=== PATIENT | female | born 1930 | race Caucasian/White ===

== ENCOUNTER 2017-11-30 15:41 | Inpatient (IN) ==
--- NOTE | 2017-11-30 15:50 | Emergency Department Report ---
Weakness HPI - General Stated complaint: Fall-weakness Time Seen by Provider: 11/30/17 15:50 Source: patient, EMS - History of Present Illness HPI Narrative: 87 YO F brought to ED by EMS for dizziness and fall. Patient says she got up at home to go to the bathroom, became dizzy and fell. Patient was feeling "a little dizzy before" so used her walker. Patient says that she crawled to the kitchen to get to a phone. EMS reports patient was diaphoretic when they arrived. "Dizzy is worse with position change". Patient denies fever, chills, SOA, CP, nausea, vomiting, abdominal pain, blurred vision. Patient says she saw her bucket hooker Dr. Syed in [place] this past week and was told she was doing well. - Related Data Home Medications Medication Instructions Recorded Confirmed Levothyroxine Tab [Synthroid] 25 mcg PO ACB 11/30/17 12/06/17 Previous Rx's Medication Instructions Recorded Acetaminophen [Tylenol] 325 - 650 mg PO Q5H PRN tab 12/06/17 Aspirin Chewable [ASA] 81 mg PO DAILY tab.chew 12/06/17 Atorvastatin [Lipitor] 40 mg PO HS tab 12/06/17 Bisacodyl EC TAB [Dulcolax] 5 mg PO DAILY PRN tab 12/06/17 Bisacodyl Supp [Dulcolax] 10 mg RECTALLY DAILY PRN 12/06/17 suppositor Carvedilol [Coreg] 6.25 mg PO TIDWM tab 12/06/17 Famotidine [Pepcid] 20 mg PO BID tab 12/06/17 Furosemide [Lasix] 40 mg PO DAILY tab 12/06/17 Hydrocodone/APAP 5/325 [[place] 1 - 2 tab PO Q5H PRN tab 12/06/17 5/325] LORazepam [Ativan] 0.5 mg PO Q6H PRN tab 12/06/17 Mag-Al + Sim Oral Liq [Maalox Plus] 30 ml PO Q3H PRN udc 12/06/17 Metoclopramide [Reglan] 5 - 10 mg IVP Q6H PRN vial 12/06/17 Milk of Magnesia [Mom] 30 ml PO DAILY PRN udc 12/06/17 Nitroglycerin [Nitrostat] 0.4 mg SL Q5M PRN tab 12/06/17 Spironolactone [Aldactone] 25 mg PO DAILY tab 12/06/17 Allergies Allergy/AdvReac Type Severity Reaction Status Date / Time losartan Allergy Severe Anaphylactic Verified 12/06/17 19:49 Shock Tetanus Vaccines and Toxoid Allergy Severe PT HAS HAD Verified 12/06/17 19:49 THE DISEASE Sulfa (Sulfonamide Allergy Mild RASH Verified 12/06/17 19:49 Antibiotics) amiodarone Allergy Unknown Verified 12/06/17 19:49 lisinopril AdvReac Cough Verified 12/06/17 19:49 Review of Systems All systems: reviewed and negative except as stated Constitutional: Reports: as per HPI, other (dizziness) PFSH Patient Stated Medical History Cardiac Arrhythmia Yes: a fib Hypertension Yes Hiatal Hernia Yes Clinic Medical History (Last Reviewed 12/01/17 @ 11:58 by Barbara Sousa MD ) Hypothyroidism (Chronic Medical) Tetanus (Resolved Medical) Hypertension (Chronic Medical) Atrial fibrillation (Acute Medical) CAD (coronary artery disease) (Acute Medical) Cardiomyopathy (Acute Medical) Pulmonary hypertension (Acute Medical) Valvular heart disease (Acute Medical) CHF Surgical History: *Dental work with dentures age 13. *Bilateral Cataract Removal. *Cholecystectomy 1988. *Appendectomy age 13. *Total Abdominal Hysterectomy Family History: Family History (Last Updated 12/01/17 @ 11:56 by Barbara Sousa MD) Brother Heart problem Father Ruptured, esophagus Mother Stroke Sister Atrial fibrillation Sister Atrial fibrillation - Social History Smoking status: Never smoker Physical Exam - General General appearance: alert, in no apparent distress - Normal Exams: Head:: Normocephalic without trauma Eyes:: Pupils are PERRLA w/ EOMI, No scleral icterus, irritation ENMT:: No facial trauma, nasal exudates, pharyngeal erythema, or exudates are noted Chest/Respirations:: Clear all [place], with good airflow, and symmetry bilaterally Abdomen:: Bowel sounds positive, soft, non-tender, non-distended Neurological:: Patient is alert, and oriented, cranial nerves, motor/sensory/ cerebellar, exams w/o gross deficits, to observation Psychiatric:: Patient exhibits, appropriate attention, emotion and affect - Eye Eye exam: Absent: nystagmus - ENT ENT exam: Present: mucous membranes moist, TM's normal bilaterally - Neck Neck exam: Present: trachea midline - Cardiovascular Cardiovascular exam: Present: other (regular-irregular rate 98) - Skin Skin exam: Present: warm, dry - Expanded Neurological Exam Speech: Present: fluid speech Cerebellar function: Normal: finger to nose, heel to goins Motor strength - LUE: 5/5 Motor strength - RUE: 5/5 Motor strength - LLE: 5/5 Motor strength - RLE: 5/5 Upper motor neuron exam: Absent bilaterally: pronator drift Course - Consultations Consultation #1: I discussed patient's HPI, PMH, labs, EKG, VS, CXR, CT of head and treatment in ED and concern for CVA with Dr. Pichardo. Dr. Pichardo will admit. Vital Signs Temperature 96.3 F L 11/30/17 15:41 Pulse Rate 92 11/30/17 15:41 Respiratory Rate 20 11/30/17 15:41 Blood Pressure 171/89 H 11/30/17 15:41 Pulse Oximetry 95 11/30/17 15:41 Temperature 96.8 F 12/06/17 11:30 Pulse Rate 77 12/06/17 15:30 Respiratory Rate 20 12/06/17 15:30 Blood Pressure 180/81 H 12/06/17 15:30 Pulse Oximetry 96 12/06/17 15:30 Weakness - MDM Narrative Medical decision making narrative: Unable to obtain orthostatic vital signs due to patient becoming extremely "dizzy". Patient symptoms consistent with vertigo patient given mag was seen. Patient has no improvement after 20 mg IV of labetalol for blood pressure patient is still tachycardic. Patient admits now feeling like she is no longer dizzy after fluids and meclizine. Patient given 40mg IV of lasix. Nurse reports patient became diaphoretic after lasix. Patient has improved VS after 15mg of Cardizem IV. Concern for stroke due to the fact she is not anticoagulated with atrial fibrillation. CT scan does not show any acute findings. I discussed observation admission with patient and her which they agree with. Patient is admitted to the hospitalist service for further evaluation. Concern for possible CVA due to patient has A-fib and is not on anticoagulant. - Differential Diagnosis Differential diagnosis: Likely: acute myocardial infarction, anemia, hypoglycemia, dehydration (, CVA, ) - Lab Data Attestation: I reviewed the patient's lab results. Result diagrams: 12/05/17 04:07 12/06/17 05:04 Lab Results 11/30/17 11/30/17 11/30/17 Range/Units 16:07 16:07 16:07 WBC 6.2 (4.5-11.0) T/MM3 RBC 4.72 (4.00-5.20) M/MM3 Hgb 15.3 (12-16) GM/DL Hct 46.0 (36-46) % MCV 97.5 (80-100) UM3 MCH 32.4 (26-34) UUG MCHC 33.3 (31-37) GM/DL RDW Std Deviation 52.4 H (36.9-50.2) FL Plt Count 244 (130-400) T/MM3 MPV 9.6 (9.4-12.4) UM3 Neutrophils % (Manual) 66.0 (33-66) % Band Neutrophils % 1.0 (0-6) % Lymphocytes % (Manual) 25.0 (23-45) % Monocytes % (Manual) 8.0 (0-9.0) % Neutrophils # (Manual) 4.1 (1.8-7.7) T/MM3 Band Neutrophils # 0.1 T/MM3 Lymphocytes # (Manual) 1.6 (1-4.8) T/MM3 Monocytes # (Manual) 0.5 (0-0.8) T/MM3 RBC Morph Comment Normal Turbidity < 20 (0-20) Sodium 144 (134-144) MEQ/L Potassium 4.4 (3.6-5) MEQ/L Chloride 105 (98-107) MEQ/L Carbon Dioxide 27 (22-30) MEQ/L Anion Gap 12 (5-15) MEQ/L BUN 17.0 (7-17) MG/DL Creatinine 0.9 (0.7-1.2) MG/DL GFR Calculation 59 BUN/Creatinine Ratio 19 (6-26) RATIO Glucose 145 H (65-110) MG/DL Calculated Osmolality 282 H (261-280) MOSM/KG Calcium 9.7 (8.4-10.2) MG/DL Total Bilirubin 0.90 (0.20-1.30) MG/DL Icterus Index < 2 (0-7) AST 47 H (14-36) U/L ALT 48 (9-52) U/L Alkaline Phosphatase 65 (38-126) U/L Troponin I < 0.012 (0-0.12) ng/ml B-Natriuretic Peptide 7960 H (0-175) pg/mL Total Protein 7.3 (6.3-8.2) G/DL Albumin 4.3 (3.5-5.0) G/DL Globulin 3.0 (2.4-3.6) G/DL Albumin/Globulin Ratio 1.4 (1.1-2.2) RATIO Specimen Hemolysis 71 H (0-25) Ur Collection Type Urine Color (YELLOW) Urine Clarity Urine pH (5.0-8.0) Ur Specific [place] (1.015-1.025) Urine Protein (NEGATIVE) Urine Glucose (UA) (NEGATIVE) Urine Ketones (NEGATIVE) Urine Occult Blood (NEGATIVE) Urine Nitrate (NEGATIVE) Urine Bilirubin (NEGATIVE) Urine Urobilinogen (NORMAL) EU/DL Ur Leukocyte Esterase (NEGATIVE) Urinalysis Comment Influenza Type A (PCR) Negative (Negative) Influenza Type B (PCR) Negative (Negative) 11/30/17 Range/Units 18:14 WBC (4.5-11.0) T/MM3 RBC (4.00-5.20) M/MM3 Hgb (12-16) GM/DL Hct (36-46) % MCV (80-100) UM3 MCH (26-34) UUG MCHC (31-37) GM/DL RDW Std Deviation (36.9-50.2) FL Plt Count (130-400) T/MM3 MPV (9.4-12.4) UM3 Neutrophils % (Manual) (33-66) % Band Neutrophils % (0-6) % Lymphocytes % (Manual) (23-45) % Monocytes % (Manual) (0-9.0) % Neutrophils # (Manual) (1.8-7.7) T/MM3 Band Neutrophils # T/MM3 Lymphocytes # (Manual) (1-4.8) T/MM3 Monocytes # (Manual) (0-0.8) T/MM3 RBC Morph Comment Turbidity (0-20) Sodium (134-144) MEQ/L Potassium (3.6-5) MEQ/L Chloride (98-107) MEQ/L Carbon Dioxide (22-30) MEQ/L Anion Gap (5-15) MEQ/L BUN (7-17) MG/DL Creatinine (0.7-1.2) MG/DL GFR Calculation BUN/Creatinine Ratio (6-26) RATIO Glucose (65-110) MG/DL Calculated Osmolality (261-280) MOSM/KG Calcium (8.4-10.2) MG/DL Total Bilirubin (0.20-1.30) MG/DL Icterus Index (0-7) AST (14-36) U/L ALT (9-52) U/L Alkaline Phosphatase (38-126) U/L Troponin I (0-0.12) ng/ml B-Natriuretic Peptide (0-175) pg/mL Total Protein (6.3-8.2) G/DL Albumin (3.5-5.0) G/DL Globulin (2.4-3.6) G/DL Albumin/Globulin Ratio (1.1-2.2) RATIO Specimen Hemolysis (0-25) Ur Collection Type Urine, void-cc/notcc Urine Color Yellow (YELLOW) Urine Clarity Sl cloudy Urine pH 7.5 (5.0-8.0) Ur Specific [place] 1.020 (1.015-1.025) Urine Protein Negative (NEGATIVE) Urine Glucose (UA) Negative (NEGATIVE) Urine Ketones Trace A (NEGATIVE) Urine Occult Blood Negative (NEGATIVE) Urine Nitrate Negative (NEGATIVE) Urine Bilirubin Negative (NEGATIVE) Urine Urobilinogen 0.2 (NORMAL) EU/DL Ur Leukocyte Esterase Negative (NEGATIVE) Urinalysis Comment Microscopic not ind. Influenza Type A (PCR) (Negative) Influenza Type B (PCR) (Negative) - Radiology Data Attestation: I reviewed the patient's radiology results. CT head: no acute intracranial findings (V-RAD) CXR: mild to moderate pulmonary edema (Dr. Gaspar) - EKG Data EKG #1 EKG attestation: Yes: I reviewed and interpreted this EKG. EKG results narrative: EKG unchanged from 2016. Rhythm: A.Fib [place]/QRS: left axis deviation Disposition Clinical Impression: hypertensive urgency, possibly chf [place] [facility] [facility] [place] Condition: Improved - Seen By: midlevel
[2017-11-30] MEDS ORDERED: MECLIZINE 25 MG TABLET PO ONE (16:13)
[2017-11-30] MEDS: SALINE FLUSH 10ml SYRINGE IVF PRN ×4 (16:27→20:30)
--- NOTE | 2017-11-30 17:04 | XRay Report ---
INDICATION: cough PROCEDURE: CHEST 2-VIEWS UPRIGHT (PA & LAT) Encounter: Initial COMPARISON: July 06, 2016 FINDINGS: Increased prominence of the interstitial markings noted. No pleural effusion or pneumothorax. Cardiac silhouette remains moderately enlarged. Mediastinal contours are stable. Pulmonary vascularity is prominent. Bony demineralization with old compression fractures in the spine. Impression: Increasing interstitial prominence with an appearance most suggestive of mild to moderate pulmonary edema. Atypical/viral pneumonia could have a similar appearance. Recommend clinical and laboratory correlation. .
[2017-11-30] MEDS ORDERED: LABETALOL 100mg/20ml INJECTION IVP ONE ×2 (19:04→19:39)
[2017-11-30] MEDS ORDERED: FUROSEMIDE 40 MG/4 ML INJECTION IVP ONE (20:01)
[2017-11-30] MEDS ORDERED: DiltiaZEM 25 MG/5 ML INJECTION IVP ONE (20:17)
--- NOTE | 2017-11-30 20:28 | History & Physical Report ---
History of Present Illness Date: 12/01/17 Chief complaint: dizziness HPI: Pleasant 87 yo female PTER via EMS for dizziness and fall at home. is at the bedside providing additional history she is hard of hearing, he Said that they got up and had breakfast and lunch at noon she was okay, he had left the house, around 3 PM she called him because she had fallen and couldn't get up. She was able to crawl to get the phone call. She describes what sounds like vertigo, but no other focal weakness. when the ambulance arrived she was still vertiginous and she was quite diaphoretic. She has had some gait disturbance and needs either a cane or walker typically, she has been debilitated since she was hospitalized in [place] for congestive heart failure in September. She actually visited her pulper in [place] yesterday (Dr Tyree Syed) who said that she was in good health. She does describe however earlier in the week that she had taken some oral Lasix for some leg swelling and some weight gain. She says that her dry weight at home is around 135 pounds 440 pounds in the hospital (she is 65 kg her 143 pounds here today.) She denies any dietary indiscretions she denies missing any doses of her carvedilol. She usually takes 6.25 mg daily and her blood pressure at home typically in's around 145/78. Her pulse is typically 77 and her saturations are in the mid to high 90s. She does not take any Coumadin anymore she had a history of a reaction to it. She takes a [place] herb "Netozyme" that acts as a blood thinner that "has been working because they haven't found any clots" her describes that she has a history of congestive heart failure with ejection fraction 25%. She has known accepted/permanent atrial fibrillation. She's been intolerant of amiodarone in the past. As noted above occasionally she will take PO lasix for leg swelling or wt gain. she denies any of those today, she does have some mild dyspnea She had some dyspepsia, her has been giving her some apple cider vinegar for the past for this "because it helps him" and she has a hiatal hernia. She denies fever chills nausea vomiting cough productive of sputum. She denies any peripheral edema. She denies urinary hesitancy or frequency. In ER she originally received some IV saline for dizziness and ketones in urine , but discussed w ER and decided to try lasix. HTN treated w labetalol. Found to be in mildly fast afib. Known afib. Got a dose of IV cardizem and this seemed to help her feel better and slow her heart rate down. Review of Systems All systems PM: 10-point ROS was reviewed, no additional remarkable complaints except Past Medical History Patient Stated Medical History Cardiac Arrhythmia Yes: a fib Hypertension Yes Hiatal Hernia Yes Clinic Medical History (Last Reviewed 09/16/17 @ 14:57 by MARIE Moreno) Hypothyroidism (Chronic Medical) Tetanus (Resolved Medical) Hypertension (Chronic Medical) Hypertensive heart disease Chronic Systolic CHF CAD s/p cath with ?stent 8 years ago Surgical History: *Dental work with dentures age 13. *Bilateral Cataract Removal. *Cholecystectomy 1988. *Appendectomy age 13. *Total Abdominal Hysterectomy Family History: Family History (Last Reviewed 09/16/17 @ 14:59 by MARIE Moreno) Brother Heart problem Family History Updates: n/c based on age - Social History Smoking status: Never smoker Substance use type: does not use Alcohol intake frequency: does not drink Housing: house Household members: spouse Current occupational status: retired Current residence: Apartment/Private Home Social history: We briefly discussed CODE STATUS, it sounds like ultimately she will probably want to be DO NOT RESUSCITATE but for now will be full code Medications Home Medications Medication Instructions Recorded Confirmed Type Carvedilol [Carvedilol] 6.25 mg PO BID 11/30/17 11/30/17 History Levothyroxine Tab [Synthroid] 25 mcg PO ACB 11/30/17 11/30/17 History Allergies Allergy/AdvReac Type Severity Reaction Status Date / Time Tetanus Vaccines and Toxoid Allergy Severe PT HAS HAD Verified 11/30/17 16:16 THE DISEASE Sulfa (Sulfonamide Allergy Mild RASH Verified 11/30/17 16:16 Antibiotics) amiodarone Allergy Unknown Verified 11/30/17 16:16 Exam Vital Signs: Temperature 96.3 F L 11/30/17 15:41 Pulse Rate 120 H 11/30/17 19:45 Respiratory Rate 36 H 11/30/17 19:45 Blood Pressure 171/106 H 11/30/17 19:40 Pulse Oximetry 97 11/30/17 19:45 Telemetry Rhythm: A-fib with RVR Height/Weight/BMI: Height 1.63 m Weight 65 kg - Constitutional Present: no acute distress Comments: she appears elderly She is alert and oriented however hard of hearing in no distress Lungs are actually fairly clear with normal respiratory pattern Cardiovascular irregularly irregular no murmurs heart rate is 70s Abdomen soft benign nontender Extremities no Neuro she has no focal weakness right versus left. Speech is fluent. Results - Labs CBC & Chem 7: 11/30/17 16:07 11/30/17 16:07 - ECG Data Tracing #1 Arrhythmias present: afib MT/QRS/ST segment/T wave changes: q waves (anteriorly), non-specific ST-T wave changes (lateral ST waves flat ) - Imaging and Cardiology Chest x-ray Status: image reviewed by me Additional comments: Impression: Increasing interstitial prominence with an appearance most suggestive of mild to moderate pulmonary edema. Atypical/viral pneumonia could have a similar appearance. Recommend clinical and laboratory correlation. . CT scan - head Additional comments: no bleed/ no acutes Assessment and Plan (1) Acute congestive heart failure Current visit: Yes Status: Acute (2) Hypertensive heart disease Current visit: Yes Status: Acute (3) Gait instability Current visit: Yes Status: Acute (4) Fall Current visit: Yes Status: Acute (5) Atrial fibrillation with rapid ventricular response Current visit: Yes Status: Acute (6) Hypothyroidism Current visit: No Status: Chronic (7) Hypertension Current visit: No Status: Chronic Assessment and Plan: 1. Acute systolic congestive heart failure POA, probably systolic per hx. Echo in AM for updated EF. IV lasix now and in am. Probably related to HTN heart dz and tachycardia 2. Atrial fibrillation with RVR. Persistent. Not anticoagulated (?fall risk? ) High risk for CVA. CHADSVaSC2 = 5 (at least) Depending on bleed/fall risk, consideration for anticoag is challenging 3. Hypertensive heart disease 4. Dizziness which I suspect is related to uncontrolled HTN but could be TIA or dysequilibrium or other 5. Hypothyroidism on replacement 6. Gait disturbance w fall - probably d/t #4 Plans 1. IV lasix 40 mg q12 h 2. coreg 6.25 BID and add lisniopril 10 mg - says she is sensitive to meds and BP can lower easily 3. Echo in AM 4. O2 eval 5. TSH 7.25- no adjustment for now 6. tele and control HR may need to add other rate controlling (cardizem) - will need to verify EF before adding that perhaps custodial 7. PT OT evals with fall 8. Lipitor 40 mg daily 9. MRI brain in AM rule out CVA as cause of vertigo/dizziness 10. Get records from her CV in [place] re: CAD, EF, why not on coumadin etc, why not on RUSSEL-I, - Physician Narrative Physician: Barbara Sousa MD Narrative: Date: 12/01/17 Time: 10:30 See supplemental note dictated 12/01/17. Hospital Course Summary Disclaimer: The visit summary below is not to be considered part of the above Progress Note.
[2017-11-30] MEDS ORDERED: MORPHINE SULFATE 2mg INJECTION IVP PRN ×2 (21:37)
[2017-11-30] MEDS ORDERED: ACETAMINOPHEN 325 MG TABLET PO PRN (21:37)
[2017-11-30] MEDS ORDERED: ASPIRIN 81 MG CHEWABLE TABLET PO ONE (21:37)
[2017-11-30] MEDS ORDERED: ONDANSETRON 4 MG/2 ML INJECTION IVP PRN (21:37)
[2017-11-30] MEDS ORDERED: FALL RISK - PHARMACY CONSULT XX ONE (22:07)
[2017-11-30] MEDS: ATORVASTATIN 40 MG TABLET PO SCH (23:00)
[2017-11-30] MEDS: LISINOPRIL 10 MG TABLET PO SCH (23:00)
[2017-11-30] MEDS: CARVEDILOL 6.25 MG TABLET PO SCH (23:28)
[2017-12-01] MEDS ORDERED: FUROSEMIDE 40 MG/4 ML INJECTION IVP SCH (06:00)
[2017-12-01] MEDS ORDERED: CARVEDILOL 25 MG TABLET PO SCH (08:00)
--- NOTE | 2017-12-01 08:00 | CT Scan Report ---
Indication: dizziness PROCEDURE: CT head/brain wo con: Encounter: Initial Comparison: July 08, 2013 Technique: Axial CT images through the head were performed without contrast. Iterative Reconstruction dose reducing technique was utilized. FINDINGS: Mild to moderate generalized atrophy. The ventricles are of normal size, shape, and contour for the patient's age. There are scattered areas of low attenuation in the white matter which most likely represent changes from chronic microvascular ischemia. The brainstem, cerebellum, and cerebral hemispheres otherwise have a normal morphology and CT attenuation. There is no evidence of midline displacement. No hemorrhage, signs of acute territorial stroke, mass effect, mass lesions, or edema is evident. The visualized portions of the skull base, midface, and calvarium demonstrate no abnormality. The paranasal sinuses are well aerated and free of significant disease. The tympanic and mastoid cavities appear normal. IMPRESSION: No acute intracranial abnormality or hemorrhage. There is a preliminary report by [facility]. .
[2017-12-01] MEDS: CARVEDILOL 6.25 MG TABLET PO SCH ×2 (09:27→17:59)
[2017-12-01] MEDS: LISINOPRIL 10 MG TABLET PO SCH (09:30)
[2017-12-01] MEDS ORDERED: SALINE FLUSH 10ml SYRINGE ONE (11:24)
[2017-12-01] MEDS ORDERED: GADOTERIDOL 279.3mg/ml - 15ml vial IVP ONE (11:24)
--- NOTE | 2017-12-01 12:16 | History & Physical Report ---
History of Present Illness Date: 12/01/17 Chief complaint: fall, dizziness HPI: Mrs. Mckeon is a 87 yo female who presented to the emergency room yesterday evening via EMS for dizziness and fall at home. Her is at the bedside providing history due to patient fatigue/hearing loss. Patient was ambulating normally yesterday until about 3 PM when she attempted to get up from a chair and fell to the left. She crawled to the phone and called her who is outside. She was able to assist him using both legs when he helped her get up and into a chair. Her speech was not slurred at that time but she did complain of dizziness and felt like she was falling to the left. She subsequently told her and daughter that she needed to later her left side so the "room would straighten out". This persisted in the emergency room where head CT was negative for acute pathology. Patient had no difficulty eating or moving about earlier in the day. Blood pressure was normal when EMS arrived but the patient was described as being diaphoretic. Patient did not describe chest pain at any point and continues to deny now. Vertigo was reported in preliminary reports last night but no focal neurological deficits. The patient's blood pressure was elevated on arrival in the emergency room ranging from systolic of 171/89 initially to maximum systolic of 203 and maximum diastolic of 120. She was treated with IV labetalol and her believes dizziness improved after blood pressure was lowered. Atrial fibrillation was initially rapid with rates up to 126 which prompted a dose of IV Cardizem prior to transfer to the floor. This morning the patient's speech was reported to be more slurred than normal and drooping of the right side of the face was described. Her daughter feels she is having some difficulty swallowing pills this morning and patient describes indigestion/belching. The patient has underlying atrial fibrillation with [id number] score of 5-6 and she required hospitalization at [facility] for management of edema. She is intolerant of lisinopril and Cozaar and has not tolerated up titration of carvedilol. Lasix is dosed intermittently based on edema. The patient's and daughter report that she really hasn't bounced back from the hospitalization for heart failure and has been more fatigued with mild residual excisional dyspnea and variable edema since that time. She has been using a cane intermittently and has been weaker than what they consider normal. In addition to chronic atrial fibrillation she has known single-vessel coronary artery disease with a stent in the LAD placed approximately 2009 and nonischemic cardiomyopathy with ejection fraction of 25% in September. 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 She's been intolerant of warfarin and amiodarone in the past. She actually visited her telegraph office telephone clerk in [place] yesterday (Dr Tyree Syed) who said that she was in good health. She does describe however earlier in the week that she had taken some oral Lasix for some leg swelling and some weight gain. She says that her dry weight at home is around 135 pounds 440 pounds in the hospital (she is 65 kg her 143 pounds here today.) She denies any dietary indiscretions she denies missing any doses of her carvedilol. She usually takes 6.25 mg daily and her blood pressure at home typically in's around 145/78. Her pulse is typically 77 and her saturations are in the mid to high 90s. She does not take any Coumadin anymore she had a history of a reaction to it. She takes a [place] herb "Netozyme" that acts as a blood thinner that "has been working because they haven't found any clots" Review of Systems All systems PM: 10-point ROS was reviewed, no additional remarkable complaints except (as previously documented by Dr. Erickson and per history of present illness. The patient also describes increasing indigestion and intermittent diarrhea chronically. Family reports occasional difficulty sleeping. Her reports that she simply "wearing out". No specific symptoms were sided and when asked responses were negative. Please note patient did not participate in review of systems other than to deny chest pain.) Past Medical History Patient Stated Medical History (Last Reviewed 12/01/17 @ 11:58 by Barbara Sousa MD) Hypothyroidism (Chronic Medical) Tetanus (Resolved Medical) Hypertension (Chronic Medical) Atrial fibrillation (chronic Medical) CAD (coronary artery disease) -stent LAD 2009 Cardiomyopathy, nonischemic-EF 25% in September 2017 Pulmonary hypertension-PAP 45-50 mmHg in the past Valvular heart disease-MR, AI Surgical History: *Dental work with dentures age 13. *Bilateral Cataract Removal. *Cholecystectomy 1988. *Appendectomy age 13. *Total Abdominal Hysterectomy Family History: Family History (Last Updated 12/01/17 @ 11:56 by Barbara Sousa MD) Brother Heart problem Father Ruptured, esophagus-age 91 Mother Stroke-age 84 or 85, Sister Atrial fibrillation Sister Atrial fibrillation Family History Updates: as above - Social History Smoking status: Never smoker Substance use type: does not use Alcohol intake frequency: does not drink Household members: spouse Current residence: Apartment/Private Home Social history: PCP-Dr. Irene Sung Cardiology-Dr. Syed CODE STATUS-full Alternate decision makers-patient's and daughter-Jackie Medications Home Medications Medication Instructions Recorded Confirmed Type Carvedilol [Carvedilol] 6.25 mg PO BID 11/30/17 11/30/17 History Levothyroxine Tab [Synthroid] 25 mcg PO ACB 11/30/17 11/30/17 History Allergies Allergy/AdvReac Type Severity Reaction Status Date / Time losartan Allergy Severe Anaphylactic Verified 12/01/17 20:55 Shock Tetanus Vaccines and Toxoid Allergy Severe PT HAS HAD Verified 12/01/17 20:55 THE DISEASE Sulfa (Sulfonamide Allergy Mild RASH Verified 12/01/17 20:55 Antibiotics) amiodarone Allergy Unknown Verified 12/01/17 20:55 lisinopril AdvReac Cough Verified 12/01/17 20:55 Exam Vital Signs: Temperature 96.3 F L 11/30/17 15:41 Pulse Rate 78 12/01/17 09:36 Respiratory Rate 20 12/01/17 09:36 Blood Pressure 141/82 H 12/01/17 10:09 Pulse Oximetry 98-RA 12/01/17 09:36 EXAM: General-drowsy, soft spoken, minimally interactive; 141/82 78 96.3 HEENT-PERRL, EOMI without nystagmus, conjugate gaze, conjunctiva clear, sclera anicteric, facial structures symmetric, oropharynx clear, neck supple and without adenopathy Lungs-respirations nonlabored, good airflow, breath sounds clear anteriorly Cardiac-irregular rhythm, S1-S2, no murmur or gallop noted; neck veins do not appear to be distended, prominent impulse lower right carotid Abd-soft, nontender, bowel sounds present Ext-without edema Skin-small abrasion left elbow without surrounding erythema or warmth, no generalized rash, no significant bruising MS-minor degenerative changes, good range of motion at the hips Neuro-cranial nerves 3-12 intact except minor flattening right nasolabial fold which family report is old, no evidence of nystagmus, denies diplopia on lateral gaze today; motor tone normal, very minor drift left upper extremity, router operator pin 4/5 bilaterally, intact bilateral dorsiflexion/plantarflexion and iliopsoas although patient does not raise the left leg off the bed quite as well she does the right. [id number] intact bilaterally but moderate clumsiness with left [id number] Psych-inattentive/dull/withdrawn Height/Weight/BMI: Height 1.6 m Weight 59.9 kg Body Mass Index 25.4 Results - Labs CBC & Chem 7: 11/30/17 16:07 11/30/17 16:07 Labs: Troponin <0.012-0.030-0.257-0.397 Triglycerides 51, total cholesterol 127, LDL 55, HDL 62 TSH 5.97 ProBNP 7960 AST 47, other LFTs normal UA with trace ketones but no cells Influenza negative - ECG Data Tracing #1 I reviewed this ECG and interpreted as documented below: (A. fib with LVH, LAD, lateral ST depression) Tracing #2 I reviewed this ECG and interpreted as documented below: (atrial fibrillation, LAD, LVH possible old septal LA, diffuse T-wave flattening, previous ST depression less evident.) - Imaging and Cardiology Chest x-ray Status: image reviewed by me (increased vascular markings versus pulmonary fibrosis, kyphosis, borderline cardiomegaly) CT scan - head Status: image reviewed by me (noncontrast study reveals atrophy and chronic small vessel ischemic changes but no acute pathology) Assessment and Plan (1) Gait instability Problem details: With fall Current visit: Yes Status: Acute (2) Atrial fibrillation with rapid ventricular response Current visit: Yes Status: Acute Assessment and Plan: Impression: Gait instability with fall Acute/chronic systolic congestive heart failure POA NSTEMI Atrial fibrillation with RVR CHADSVaSC2 5-6 Hypertensive heart disease Dizziness/vertigo CAD Hypothyroidism-TSH 7.97; 13 on 09/26/70 Valvular heart disease, MR, AI, pulmonary hypertension Plan: Patient received IV Lasix last night in addition to labetalol and diltiazem given in the emergency room. History is problematic as the patient offers little to clarify what her symptoms were at the time of the fall and since that time so it is unclear if there was truly vertigo or not. This is implied by the sensation that she had to "straighten out the room" with position changes. MRI is pending. There are minor neurological deficits present and there appears to be in some fluctuation in symptoms overnight. She is clearly at high risk for stroke based on cardiac disease both due to cardiomyopathy and irregular rhythm. PT/OT/speech therapy all ordered. Continue telemetry. Uncontrolled hypertension/hypertensive urgency may have explained presenting symptoms however do not account for neurological fluctuation this morning when blood pressure was stable. Chest x-ray and BNP consistent with heart failure however patient is oxygenating adequately. Continue Lasix at present. Continue carvedilol at home dose. Discontinue lisinopril based on past history obtained from cardiology. Cardiology consultation planned-call placed. TSH 7.25- no adjustment for now DVT Prophylaxis: SCD's Resuscitation Status: Full Code - Physician Narrative Narrative: Date: 12/01/17 Time: 1202 Hospital Course Summary Disclaimer: The visit summary below is not to be considered part of the above Progress Note.
--- NOTE | 2017-12-01 12:19 | Magnetic Resonance Report ---
Indication: vertigo/dizziness, HTN urgency PROCEDURE: MR head/brain/ang head wo/w: Encounter: Initial Comparison: Head CT from yesterday Technique: Multiplanar, multisequence, MR imaging of the head with and without contrast was acquired. MRA imaging of the head without contrast was acquired. Maximum intensity projection (MIP) reformatted images were produced. 3-dimensional volume rendered imaging of the [employer] [place] [place] was performed by the technologist on a dedicated workstation. Contrast: 12 mL of ProHance Findings: MRI head: Motion artifact. Moderate generalized atrophy. Multifocal areas of acute diffusion restriction most prevalent in the left cerebellar hemisphere and cerebellar vermis. Smaller foci of acute diffusion restriction in the right occipital lobe on diffusion weighted image #10. There is also an additional focus of acute diffusion restriction in the left posterior frontal lobe on image #18. The ventricles are of normal size, shape, and contour for the patient's age. There are small nonspecific punctate areas of T2-weighted and T2 FLAIR weighted signal abnormality in the deep frontoparietal white matter that most likely represent small vessel ischemic disease. This is of a degree that is considered to be normal for the patient's age. The brain stem, cerebellum, and cerebral hemispheres otherwise have a normal morphologic appearance as well as MR signal intensity on all pulse sequences. Following intravenous administration of contrast, no areas of abnormal enhancement are evident. There is no evidence of an intracranial mass lesion, intracranial hemorrhage, or hydrocephalus. The visualized portions of the orbits, calvarium, paranasal sinuses, and skull base demonstrate no significant abnormality. MRA head: The intracranial portions of the vertebral arteries, internal carotid arteries, and their major branches show no significant stenosis or other vascular anomaly. No aneurysms or vascular malformations are evident. Left posterior communicating artery noted. Impression: 1. MRI head: Multifocal areas of acute infarct involving the left cerebellum, right occipital lobe and left frontal lobe. This involves multiple vascular territories including the left PICA, right MIXING PAN TENDER and left MCA. Involvement of multiple vascular territories suggests an embolic cause. 2. MRA head: No evidence of aneurysm or flow-limiting arterial stenosis. .
[2017-12-01] MEDS ORDERED: ASPIRIN 325 MG TABLET PO ONE (12:47)
--- NOTE | 2017-12-01 17:00 | Cardiology Consult Note ---
History of Present Illness History of present illness: Mrs. Mckeon is a pleasant 87-year-old female who has a complex cardiac history including systolic CHF with EF of 25%, atrial fibrillation (no anticoagulation), CAD with a LAD stent, HTN, pulmonary HTN and valvular heart disease (moderate MR and AR). Pt was brought to [facility] yesterday afternoon () after being dizzy and having a fall. Pt said she got up to go to the bathroom and felt wobbly when she was walking with her walker. Pt is unsure what happened but ended up falling and hitting her left side on their oak floor around 1500. Pt denies LOC.She just couldn't walk straight . Pt said she crawled to the table to get the phone to call her who was outside in the yard. Pt was brought to [facility] via ambulance. Pt appears tired and lethargic. Pt complains of dizziness. Pt denies angina or pressure, palpitations , dyspnea, edema, cough, double vision, change in vision. Pt denies any hx of stomach bleeding. Pt is hard of hearing bilaterally - pt not wearing hearing aids. 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 Pt is not on anticoagulation for atrial fibrillation (CHADS VASC score now 7) because she says Warfarin is "rat poison." Pt currently takes a [place] natural herb for her a fib. I was consulted due to increase of troponin 0.343 today. She denies CP pressure or tightness. She was found to have decompensated CHF and treated with IV diuretics . She denies dyspnea. outside records indicate an attempt at increasing her BB and lowering diuretics in September which was ultimately unsuccessful due to fluid retention and intolerance to increased BB. Patient and family report extreme sensitivity and intolerance to multiple medications including Amiodarone ,Lisinopril and Losartan. see Allergy list please. She had a negative stress nuclear scan with her Floor Scrubber Dr Strickland in 2014 that showed no reversible ischemia. Her LVEF had been in the range of 40% several years ago , with the most recent assessment with Dr strickland ,about 25%. Apparently no known heart cath ,since her stent to proximal LAD in 2009 at the time of her UT. Review of Systems All systems PM: 10-point ROS was reviewed, no additional remarkable complaints except PFSH Patient Stated Medical History Cardiac Arrhythmia Yes: a fib Hypertension Yes Hiatal Hernia Yes Shingles Yes Clinic Medical History (Last Reviewed 12/01/17 @ 11:58 by Barbara Sousa MD ) Hypothyroidism (Chronic Medical) Tetanus (Resolved Medical) Hypertension (Chronic Medical) Atrial fibrillation (Acute Medical) CAD (coronary artery disease) (Acute Medical) Cardiomyopathy (Acute Medical) Pulmonary hypertension (Acute Medical) Valvular heart disease (Acute Medical) Surgical History: *Dental work with dentures age 13. *Bilateral Cataract Removal. *Cholecystectomy 1988. *Appendectomy age 13. *Total Abdominal Hysterectomy Family History: Family History (Last Updated 12/01/17 @ 11:56 by Barbara Sousa MD) Brother Heart problem Father Ruptured, esophagus Mother Stroke Sister Atrial fibrillation Sister Atrial fibrillation - Social History Smoking status: Never smoker Substance use type: does not use Alcohol intake frequency: does not drink Household members: spouse Current residence: Apartment/Private Home Medications Home Medications Medication Instructions Recorded Confirmed Type Carvedilol [Carvedilol] 6.25 mg PO BID 11/30/17 11/30/17 History Levothyroxine Tab [Synthroid] 25 mcg PO ACB 11/30/17 11/30/17 History Allergies Allergy/AdvReac Type Severity Reaction Status Date / Time losartan Allergy Severe Anaphylactic Verified 12/01/17 20:55 Shock Tetanus Vaccines and Toxoid Allergy Severe PT HAS HAD Verified 12/01/17 20:55 THE DISEASE Sulfa (Sulfonamide Allergy Mild RASH Verified 12/01/17 20:55 Antibiotics) amiodarone Allergy Unknown Verified 12/01/17 20:55 lisinopril AdvReac Cough Verified 12/01/17 20:55 Exam Vital signs: Temperature 96.3 F L 11/30/17 15:41 Pulse Rate 84 12/01/17 16:00 Respiratory Rate 16 12/01/17 16:00 Blood Pressure 136/79 12/01/17 16:00 Pulse Oximetry 93 12/01/17 16:00 - Constitutional no acute distress, well developed, other (lethargic) - Routine HEENT Exam Head: Present: normocephalic, atraumatic Eye: Present: EOMI, PERRL, nystagmus ENT: Present: mucous membranes moist Nose: moist mucous membranes - Routine Neck Exam Present: supple. Absent: JVD - Routine Respiratory Exam Present: CTA bilaterally - Routine Cardiovascular Exam Present: no murmur, irregularly irregular. Absent: gallop, S3 - Routine Abdominal Exam Present: soft, normoactive bowel sounds, non distended. Absent: tenderness - Routine Extremities Exam Present: no edema, pulses intact. Absent: cyanosis, clubbing - Routine Skin Exam Present: intact. Absent: cyanosis - Routine Neurological Exam Present: alert, CN II-XII intact, moving all extremities, nystagmus, facial asymmetry (right sided droop; mild right tongue deviation), normal speech. Absent: hearing grossly intact - Routine Psychiatric Exam Present: normal affect, cooperative, anxious Results 12/05/17 04:07 12/06/17 05:04 Cardiac Enzymes 11/30/17 11/30/17 12/01/17 Range/Units 20:25 20:25 03:56 Troponin I 0.030 D Cancelled 0.257 H D (0-0.12) ng/ml 12/01/17 12/01/17 Range/Units 10:03 15:48 Troponin I 0.397 H 0.343 H (0-0.12) ng/ml Lipids 12/01/17 Range/Units 03:56 Triglycerides 51 (35-135) MG/DL Cholesterol 127 L (132-199) MG/DL HDL Cholesterol 62 H (40-60) MG/DL Cholesterol/HDL Ratio 2.0 (0-4.0) RATIO Intake and Output 12/01/17 12/01/17 12/01/17 06:59 14:59 22:59 Intake Total 500 / 500 Output Total 800 / 800 200 / 200 Balance -300 / -300 -200 / -200 Intake: Oral 500 / 500 Output: Urine 800 / 800 200 / 200 Other: Urine Appearance Clear Clear Urine Color Yellow Yellow Urine Odor Normal Normal # Voids 1 Weight 59.9 kg Patient Weight 12/02/17 06:59 Weight 59.9 kg - Imaging and Cardiology Echo: other (EF 25% per [facility] 09/2017) Holter: other (telemtry reviewed) EKG results: image reviewed - EKG Interpretation EKG shows: atrial fibrillation (with incomplete LBBB with secondary ST-T abnormalities chronic and unchanged from previous ekg) EKG interpretations - EKG EKG shows: atrial fibrillation Assessment and Plan - Assessment and Plan elevated troponin-nonspecific suspect secondary to CHF/ cardiomyopathy, NSTEMI appears clinically much less likely acute on chronic systolic CHF, EF 25% - per echo 09/2017 at [facility]. Pt unable to take Losartan due to anaphylaxis. Pt unable to take Lisinopril due to cough. 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 Milian, negative stress test 2014 HTN pulmonary HTN valvular heart disease (moderate MR and AR) Lengthy discussion of risks vs benefits of NOACs. Pt and family hesitant due to bad experience with Warfarin and they believe in homeopathic medicines. Await 1- 2 weeks to anticoagulate due to risk of hemorrhagic transformation if patient and family decides to pursue anticoagulation. Pharmacologic stress scan-discussed cardiac testing if troponin increases to 1 or 2. wants me to consult with Dr. Strickland if need to. Serial troponins to be obtained. Agree with initial ASA, initial IV diuresis and current medications. Volume status excellent. Change to Lasix 40mg PO daily tomorrow. Add Spironolactone 25mg. Hospital Course Summary Disclaimer: The visit summary below is not to be considered part of the above Progress Note.
[2017-12-01] MEDS: ATORVASTATIN 40 MG TABLET PO SCH (20:09)
[2017-12-02] MEDS ORDERED: FUROSEMIDE 40 MG TABLET PO SCH (09:00)
[2017-12-02] MEDS: ASPIRIN 81 MG CHEWABLE TABLET PO SCH (09:47)
[2017-12-02] MEDS: CARVEDILOL 6.25 MG TABLET PO SCH ×2 (09:47→18:04)
[2017-12-02] MEDS: SPIRONOLACTONE 25 MG TABLET PO SCH (09:47)
[2017-12-02 14:35] VITALS: BMI 23.4
--- NOTE | 2017-12-02 16:56 | Cardiology Progress Note ---
Subjective Interval history: Mrs. Mckeon says she is doing better today. She was up with therapy and walked down the hallway. Pt denies angina or dyspnea upon exertion. Pt's daughter said she would lean toward the left side when walking and was dragging her left leg slightly. Pt denies angina, palpitations, dyspnea, dizziness while laying in bed. Pt is more awake and interactive than yesterday. Pt's and 3 children were at bedside. Serial troponin from yesterday at 1500 trended down to 0.343 from 0.397. Exam Vital signs: Temperature 97.8 F 12/02/17 15:04 Pulse Rate 88 12/02/17 15:04 Respiratory Rate 16 12/02/17 15:04 Blood Pressure 134/87 12/02/17 15:04 Pulse Oximetry 96 12/02/17 16:36 - Constitutional no acute distress, well developed, cooperative - Routine HEENT Exam Head: Present: normocephalic, atraumatic Eye: Present: EOMI, PERRL ENT: Present: mucous membranes moist - Routine Neck Exam Present: supple. Absent: carotid bruit - Routine Respiratory Exam Present: CTA bilaterally - Routine Cardiovascular Exam Present: no murmur, irregularly irregular - Routine Abdominal Exam Present: soft, normoactive bowel sounds, non tender - Routine Extremities Exam Present: no edema, pulses intact. Absent: cyanosis, clubbing - Routine Skin Exam Present: intact. Absent: cyanosis - Routine Neurological Exam Present: alert, facial asymmetry (slight right sided facial droop) - Routine Psychiatric Exam Present: normal affect, cooperative - Urinary Catheter Management Straight Cath placed during this visit: yes Insertion date: 11/30/17 Insertion time: 18:15 Results 12/02/17 03:52 12/02/17 03:53 CBC 12/02/17 Range/Units 03:52 WBC 7.6 (4.5-11.0) T/MM3 RBC 4.44 (4.00-5.20) M/MM3 Hgb 14.6 (12-16) GM/DL Hct 42.8 (36-46) % Plt Count 227 (130-400) T/MM3 Neut # (Auto) 5.0 (1.8-7.7) T/MM3 Lymph # (Auto) 1.8 (1-4.8) T/MM3 [place] # (Auto) 0.7 (0-0.8) T/MM3 Eos # (Auto) 0.0 (0-0.5) T/MM3 Baso # (Auto) 0.0 (0-0.2) T/MM3 Comprehensive Metabolic Panel 12/02/17 Range/Units 03:53 Sodium 137 D (134-144) MEQ/L Potassium 3.2 L D (3.6-5) MEQ/L Chloride 97 L D (98-107) MEQ/L Carbon Dioxide 29 (22-30) MEQ/L BUN 26.0 H D (7-17) MG/DL Creatinine 1.1 D (0.7-1.2) MG/DL Glucose 98 (65-110) MG/DL Calcium 9.1 (8.4-10.2) MG/DL Albumin 3.4 L (3.5-5.0) G/DL Intake and Output 12/02/17 12/02/17 12/02/17 06:59 14:59 22:59 Intake Total 500 / 500 90 / 90 Output Total 400 / 400 100 / 100 Balance 500 / 500 -310 / -310 -100 / -100 Intake: Oral 500 / 500 90 / 90 Output: Urine 400 / 400 100 / 100 Other: Urine Appearance Clear Urine Color Yellow Stool Color Brown Stool Consistency Soft Formed Size of Bowel Movement Large # Bowel Movements 1 Weight 60 kg Patient Weight 12/03/17 06:59 Weight 60 kg - Imaging and Cardiology EKG results: image reviewed (a fib in 70s, chronic ST depression) Assessment and Plan - Assessment and Plan elevated troponin of unknown significance-nonspecific suspect secondary to ischemic stroke and cardiomyopathy. Less likely IN but cannnot be entirely excluded. acute on chronic systolic CHF, EF 25% - per echo 09/[address] [facility]. Pt unable to take Losartan due to anaphylaxis. Pt unable to take Lisinopril due to cough. 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 Milian, negative stress test 2014 HTN pulmonary HTN valvular heart disease (moderate MR and AR) Discussed anticoagulation and risks vs benefits. Discussed option of Eliquis 2.5mg BID d/t pt age and weight. Family is not wanting to try Warfarin again as said pt was unable to tolerate d/t not being able to sleep. Family was more open to discussion of NOAC and lower dose. Await 1-2 weeks to anticoagulate due to risk of hemorrhagic transformation if patient and family decides to pursue anticoagulation. Discussed pharmacologic nuclear stress test as outpatient. Family unsure if wanting to proceed. Please call if wish to proceed. Agree with diuresis. Agree to rehab as IP. Pt appears stable. Proceed with gentle exercise. Will sign off. Please call if you need me. Hospital Course Summary Disclaimer: The visit summary below is not to be considered part of the above Progress Note.
--- NOTE | 2017-12-02 18:46 | Progress Note ---
- Date 12/02/17 Subjective: Mrs. Mckeon was seen with her at bedside. The patient was resting and reported being fatigued after physical therapy evaluations. She denied dyspnea, palpitations, or nausea. She denied difficulty swallowing but did complain of pain in the back of her neck earlier in the day. Physical therapy has recommended IRU and patient/family are agreeable with inpatient therapy if she is accepted. They're considering recommendation for anticoagulation due to stroke risk with atrial fibrillation. 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 Current visit: Yes Status: Acute (2) Gait instability Problem details: With fall Current visit: Yes Status: Acute (3) Atrial fibrillation with rapid ventricular response Current visit: Yes Status: Acute Assessment and Plan: Impression: Cardioembolic stroke involving multiple vascular territories, acute Acute/chronic systolic congestive heart failure POA NSTEMI Atrial fibrillation with RVR CHADSVaSC2 5-6 Hypertensive heart disease Dizziness/vertigo CAD Hypothyroidism-TSH 7.97; 13 on 09/26/70 Valvular heart disease, MR, AI, pulmonary hypertension Plan: Clinically patient is feeling better. IRU recommended and referral made. Dr. 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 Long-term anticoagulation with Eliquis discussed and family considering. Echocardiogram pending. Hemodynamically stable, remains on room air without respiratory compromise. Additional furosemide on hold at present to avoid further drop in blood pressure in [place]-infarct time. Family report that past efforts to increase levothyroxine dose has been poorly tolerated; check free T4 in a.m. Heating pad added for neck discomfort. Telemetry strips reviewed-atrial fibrillation. Discussed with Dr. Paris and with IRU coordinator. DVT Prophylaxis: SCD's Resuscitation Status: Full Code - Physician Narrative Narrative: Date: 12/02/17 Time: 1841 Hospital Course Summary Disclaimer: The visit summary below is not to be considered part of the above Progress Note. Hospital Course: 11/30/17-12/01/17 Patient presented with dizziness and a fall, possible vertigo. MRI demonstrated multifocal acute ischemic infarcts in multiple vascular beds. Acutely hypertensive on presentation, some improvement in symptoms after labetalol in the emergency room. Additional neurological symptoms reported after the patient arrived on the floor in the morning of 12/02 with facial droop described and slurring of speech. Known chronic atrial fibrillation but has been intolerant of warfarin and amiodarone in addition to multiple other medications in the past. There are minor neurological deficits present and there appears to be in some fluctuation in symptoms overnight. She is clearly at high risk for stroke based on cardiac disease both due to cardiomyopathy and irregular rhythm. PT/OT/ speech therapy all ordered. Continue telemetry. Uncontrolled hypertension/ hypertensive urgency may have explained presenting symptoms however do not account for neurological fluctuation this morning when blood pressure was stable. Cardiology consulted. 12/02/17 Hemodynamically stable, no gross neurological deficits or changes. Remains on aspirin with SCDs for DVT for prophylaxis. Echocardiogram pending. Rate control improved with low-dose carvedilol. PT/OT have recommended IRU for strengthening.
--- NOTE | 2017-12-02 19:19 | Echocardiogram ---
DATE OF PROCEDURE December 01, 2017 This is a two-dimensional echo with spectral Doppler, color-flow and M-mode. It was obtained in a patient with hypertension and congestive heart failure. Left atrium is dilated. Left ventricular end-diastolic dimension is normal. Left ventricular wall thickness is mildly increased. LV systolic function is reduced with global hypokinesia with ejection fraction in the range of 30%. Right atrium is normal. Right ventricle is normal. Aortic root dimension is normal. Mitral valve is morphologically normal with mild mitral regurgitation. Aortic valve shows fibrocalcific changes with no stenosis. Moderate aortic insufficiency is present. Tricuspid valve shows mild tricuspid regurgitation with normal estimated pulmonary artery systolic pressure of 29. Pulmonary valve shows mild pulmonary insufficiency. There is no pericardial effusion. IMPRESSION 1. Global hypokinesia with ejection fraction of about 30%. 2. Left atrial dilation. 3. Mild concentric left ventricular hypertrophy. 4. Mild mitral regurgitation. 5. Aortic sclerosis with moderate aortic insufficiency. 6. Mild tricuspid regurgitation with normal estimated pulmonary artery systolic pressure of 29. 7. Mild pulmonary insufficiency. MTDD
[2017-12-02] MEDS: ATORVASTATIN 40 MG TABLET PO SCH (20:16)
[2017-12-03] MEDS: CARVEDILOL 6.25 MG TABLET PO SCH ×2 (08:59→18:15)
[2017-12-03] MEDS: SPIRONOLACTONE 25 MG TABLET PO SCH (08:59)
[2017-12-03] MEDS: ASPIRIN 81 MG CHEWABLE TABLET PO SCH (09:00)
[2017-12-03] MEDS ORDERED: HYDRALAZINE 20 MG/ML INJECTION IVP ONE (13:09)
--- NOTE | 2017-12-03 15:01 | Progress Note ---
- Date 12/03/17 Subjective: Mrs. Mckeon was seen with multiple family members the bedside. She reports that she's better today and that she doesn't feel like she "lists" to the side anymore. She denies chest pain, nausea, or lightheadedness. She was able to stand without difficulty today and reports that she slept well and that her appetite is improved. Objective Vital signs: Temperature 97.4 F 12/03/17 08:00 Pulse Rate 82 12/03/17 08:00 Respiratory Rate 16 12/03/17 08:00 Blood Pressure 129/69 12/03/17 08:00 Pulse Oximetry 98 -RA 12/03/17 10:10 I/O 660/700 EXAM General-NAD, alert, speech is fluent and she is much more conversant today than in prior days HEENT-EOMI, conjunctiva clear, oropharynx clear, tongue midline Lungs-respirations nonlabored, good airflow, breath sounds clear Cardiac-irregular rhythm, S1-S2, harsh systolic murmur Abd-abdomen soft, nontender, bowel sounds present Ext-without edema Neuro-flattening of the right nasolabial fold, no drift of the upper extremities , mail distributor symmetric, raises each leg off the bed without difficulty, dorsiflexion/ plantarflexion intact; sensation intact to light touch 4 extremities Psych-calm, cooperative, more interactive today than in the past - Rhythm: Atrial Fibrillation with Normal Ventricular Rate Height/Weight/BMI: Height 1.6 m Weight 61.3 kg Body Mass Index 23.4 Results - Labs CBC & Chem 7: 12/02/17 03:52 12/03/17 04:41 Labs: fT4 pending - Echocardiogram History of Echocardiogram: Echocardiogram 12/01/17-. 1. Global hypokinesia with ejection fraction of about 30%. 2. Left atrial dilation. 3. Mild concentric left ventricular hypertrophy. 4. Mild mitral regurgitation. 5. Aortic sclerosis with moderate aortic insufficiency. 6. Mild tricuspid regurgitation with normal estimated pulmonary artery systolic pressure of 29. 7. Mild pulmonary insufficiency. Assessment and Plan (1) Stroke due to embolism Problem details: Multifocal areas of acute infarct involving left cerebellum, right occipital lobe, and left frontal lobe. Current visit: Yes Status: Acute (2) Gait instability Problem details: With fall Current visit: Yes Status: Acute (3) Atrial fibrillation with rapid ventricular response Current visit: Yes Status: Acute Assessment and Plan: Impression: Cardioembolic stroke involving multiple vascular territories, acute Acute/chronic systolic congestive heart failure POA NSTEMI Atrial fibrillation with RVR CHADSVaSC2 6 Hypertensive heart disease Dizziness/vertigo CAD Hypothyroidism-TSH 7.97; 13 on 09/26/70 Valvular heart disease, MR, AI, pulmonary hypertension Plan: Clinically improving, anticipate transfer to IRU tomorrow or Tuesday. Echo report available-again demonstrates global hypokinesis with ejection fraction of 30% and valvular heart disease. Persistent atrial fibrillation, adequate rate control. Telemetry strips reviewed by myself atrial fibrillation with occasional PVCs and one triplet. Continue beta lito. Hemodynamically stable, oxygenating well. Continue therapies. Anticipate converting from Plavix to Eliquis in about 1 week. DVT Prophylaxis: SCD's Resuscitation Status: Full Code - Physician Narrative Narrative: Date: 12/03/17 Time: 1457 Hospital Course Summary Disclaimer: The visit summary below is not to be considered part of the above Progress Note. Hospital Course: 11/30/17-12/01/17 Patient presented with dizziness and a fall, possible vertigo. MRI demonstrated multifocal acute ischemic infarcts in multiple vascular beds. Acutely hypertensive on presentation, some improvement in symptoms after labetalol in the emergency room. Additional neurological symptoms reported after the patient arrived on the floor in the morning of 12/02 with facial droop described and slurring of speech. Known chronic atrial fibrillation but has been intolerant of warfarin and amiodarone in addition to multiple other medications in the past. There are minor neurological deficits present and there appears to be in some fluctuation in symptoms overnight. She is clearly at high risk for stroke based on cardiac disease both due to cardiomyopathy and irregular rhythm. PT/OT/ speech therapy all ordered. Continue telemetry. Uncontrolled hypertension/ hypertensive urgency may have explained presenting symptoms however do not account for neurological fluctuation this morning when blood pressure was stable. Cardiology consulted. 12/02/17 Hemodynamically stable, no gross neurological deficits or changes. Remains on aspirin with SCDs for DVT for prophylaxis. Echocardiogram pending. Rate control improved with low-dose carvedilol. PT/OT have recommended IRU for strengthening. 12/03/17 Clinically improving, anticipate transfer to IRU tomorrow or Tuesday. Echo report available-again demonstrates global hypokinesis with ejection fraction of 30% and valvular heart disease. Persistent atrial fibrillation, adequate rate control. Hemodynamically stable, oxygenating well. Continue therapies. Anticipate converting from Plavix to Eliquis in about 1 week.
[2017-12-03] MEDS: SALINE FLUSH 10ml SYRINGE IVF PRN ×2 (18:15→21:17)
[2017-12-03] MEDS: ATORVASTATIN 40 MG TABLET PO SCH (21:17)
[2017-12-04] MEDS ORDERED: NITROGLYCERIN 0.4 MG SUBLINGUAL TABLET SL PRN (07:59)
[2017-12-04] MEDS: NITROGLYCERIN 0.4 MG SUBLINGUAL TABLET SL PRN ×4 (08:02→10:16)
[2017-12-04] MEDS: ASPIRIN 81 MG CHEWABLE TABLET PO SCH (08:05)
[2017-12-04] MEDS ORDERED: GI COCKTAIL 30 ML PO ONE (08:08)
[2017-12-04] MEDS: CARVEDILOL 6.25 MG TABLET PO SCH ×3 (08:50→17:57)
[2017-12-04] MEDS: SPIRONOLACTONE 25 MG TABLET PO SCH (08:51)
--- NOTE | 2017-12-04 09:24 | Progress Note ---
- Date 12/04/17 Subjective: I was contacted by nursing this morning that Mrs. Paulino was having chest discomfort, increased belching, and was diaphoretic. Blood pressure was elevated. Nitroglycerin was administered x 2 with improvement in chest discomfort. Patient described discomfort in the substernal region and that she was rubbing the area of her xiphoid to try to relieve discomfort. She thinks she did too much yesterday with physical therapy and company that visited. She describes nausea and discomfort/tightness that extended across the chest and shoulders bilaterally. She describes significant diaphoresis which was relieved with nitroglycerin. She's had similar episodes previously although is vague in frequency but suggest that she had a similar event prior to hospitalization with CVA. She emphasizes belching and reports she thinks it's her stomach. She denies change in vision or recurrent diplopia; she denies weakness in 1 arm or leg, and has had no recurrent lightheadedness. 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 Current visit: Yes Status: Acute (2) Gait instability Problem details: With fall Current visit: Yes Status: Acute (3) Atrial fibrillation with rapid ventricular response Current visit: Yes Status: Acute Assessment and Plan: Impression: Cardioembolic stroke involving multiple vascular territories, acute Acute/chronic systolic congestive heart failure POA NSTEMI Chest pain; probable angina Atrial fibrillation with RVR CHADSVaSC2 6 Hypertensive heart disease Dizziness/vertigo CAD Hypothyroidism-TSH 7.97; 13 on 09/26/70 Valvular heart disease, MR, AI, pulmonary hypertension Plan: Probable angina, diaphoresis, and chest discomfort all improved with administration of nitroglycerin. Residual belching at time of my assessment. Patient is currently on carvedilol, atorvastatin, and aspirin. Blood pressure will permit increasing carvedilol although patient/family to been reluctant to take medications beyond minimal doses due to patient's sensitivity to meds. Will increase carvedilol 6.25 mg to 3 times a day initially; may require addition of long-acting nitrate. Monitor serial troponins, EKG in a.m. d/w Dr. Paris. Telemetry reviewed-atrial fibrillation with occassional PVCs-no higher grade ectopy. GI cocktail administered and will initiate Pepcid for gastric protection. Echo demonstrates global hypokinesis with ejection fraction of 30% and valvular heart disease. DVT Prophylaxis: SCD's GI Prophylaxis: Pepcid Resuscitation Status: Full Code - Physician Narrative Narrative: Date: 12/04/17 Time: 0919 Hospital Course Summary Disclaimer: The visit summary below is not to be considered part of the above Progress Note. Hospital Course: 11/30/17-12/01/17 Patient presented with dizziness and a fall, possible vertigo. MRI demonstrated multifocal acute ischemic infarcts in multiple vascular beds. Acutely hypertensive on presentation, some improvement in symptoms after labetalol in the emergency room. Additional neurological symptoms reported after the patient arrived on the floor in the morning of 12/02 with facial droop described and slurring of speech. Known chronic atrial fibrillation but has been intolerant of warfarin and amiodarone in addition to multiple other medications in the past. There are minor neurological deficits present and there appears to be in some fluctuation in symptoms overnight. She is clearly at high risk for stroke based on cardiac disease both due to cardiomyopathy and irregular rhythm. PT/OT/ speech therapy all ordered. Continue telemetry. Uncontrolled hypertension/ hypertensive urgency may have explained presenting symptoms however do not account for neurological fluctuation this morning when blood pressure was stable. Cardiology consulted. 12/02/17 Hemodynamically stable, no gross neurological deficits or changes. Remains on aspirin with SCDs for DVT for prophylaxis. Echocardiogram pending. Rate control improved with low-dose carvedilol. PT/OT have recommended IRU for strengthening. 12/03/17 Clinically improving, anticipate transfer to IRU tomorrow or Tuesday. Echo report available-again demonstrates global hypokinesis with ejection fraction of 30% and valvular heart disease. Persistent atrial fibrillation, adequate rate control. Hemodynamically stable, oxygenating well. Continue therapies. Anticipate converting from ASA to Eliquis in about 1 week. 12/04/17 Probable angina this am, diaphoresis, and chest discomfort all improved with administration of nitroglycerin. Residual belching at time of my assessment. Patient is currently on carvedilol, atorvastatin, and aspirin. Blood pressure will permit increasing carvedilol although patient/family to been reluctant to take medications beyond minimal doses due to patient's sensitivity to meds. Will increase carvedilol 6.25 mg to 3 times a day initially; may require addition of long-acting nitrate. Monitor serial troponins, EKG in a.m.Pepcid initiated for gastric protection.
[2017-12-04] MEDS: FAMOTIDINE 20 MG TABLET PO SCH (20:50)
[2017-12-04] MEDS: ATORVASTATIN 40 MG TABLET PO SCH (20:50)
[2017-12-05] MEDS: CARVEDILOL 6.25 MG TABLET PO SCH ×3 (08:26→17:34)
[2017-12-05] MEDS: ASPIRIN 81 MG CHEWABLE TABLET PO SCH (08:26)
[2017-12-05] MEDS: SPIRONOLACTONE 25 MG TABLET PO SCH (08:26)
[2017-12-05] MEDS: FAMOTIDINE 20 MG TABLET PO SCH ×2 (08:26→22:12)
--- NOTE | 2017-12-05 11:31 | Cardiology Progress Note ---
Subjective Interval history: Mrs. Mckeon says she feels good this morning. No current complains of chest pain or tightness, dyspnea, lightheadedness, dizziness. Pt has been up walking to the bathroom twice this morning with no complaints. Yesterday morning, she complained of chest tightness and diaphoresis while laying in bed. She said it was located substernally and was gradual onset. It was dull in nature and radiated to her left neck and left shoulder. It lasted for 20 minutes. It was alleviated after 3 nitro and rubbing her chest. A heating pad was put on her left shoulder and that helped with left shoulder pain. No aggravating factors were noted by patient. Her troponin was elevated to 0.128 yesterday morning at 0805. Since then, two more serial troponins have been negative of 0.101 and 0.102. She said on Tuesday night she was very tired because she thinks she overdid it that day with therapy and walking to the bathroom a couple times. No complaints of chest pain or tightness or dyspnea when walking to bathroom on Tuesday. Exam Vital signs: Temperature 97.6 F 12/05/17 06:46 Pulse Rate 79 12/05/17 08:00 Respiratory Rate 18 12/05/17 06:46 Blood Pressure 120/69 12/05/17 06:46 Pulse Oximetry 96 12/05/17 06:46 - Constitutional no acute distress, well developed, cooperative - Routine HEENT Exam Head: Present: normocephalic, atraumatic Eye: Present: EOMI, PERRL ENT: Present: mucous membranes moist - Routine Neck Exam Present: supple, full ROM, normal carotid upstroke. Absent: JVD, carotid bruit - Routine Chest/Breast/Axilla Exam Chest wall: Absent: tenderness (unable to reproduce chest pain upon palpation) - Routine Respiratory Exam Present: CTA bilaterally. Absent: rhonchi, wheezes, crackles - Routine Cardiovascular Exam Present: no murmur, irregularly irregular. Absent: JVD - Routine Abdominal Exam Present: soft, normoactive bowel sounds, non distended, non tender. Absent: rebound, organomegaly, mass - Routine Extremities Exam Present: no edema, full ROM, pulses intact, normal capillary refill. Absent: cyanosis, clubbing - Routine Skin Exam Present: intact, dry. Absent: cyanosis, erythema - Routine Neurological Exam Present: alert, oriented X3, moving all extremities, vision grossly intact, facial asymmetry (slight right facial droop). Absent: hearing grossly intact ( [place]) - Routine Psychiatric Exam Present: normal affect, cooperative - Urinary Catheter Management Straight Cath placed during this visit: yes Insertion date: 11/30/17 Insertion time: 18:15 Results 12/05/17 04:07 12/05/17 04:07 Cardiac Enzymes 12/04/17 12/04/17 Range/Units 14:22 20:18 Troponin I 0.101 0.102 (0-0.12) ng/ml CBC 12/05/17 Range/Units 04:07 WBC 5.8 (4.5-11.0) T/MM3 RBC 4.61 (4.00-5.20) M/MM3 Hgb 14.9 (12-16) GM/DL Hct 44.6 (36-46) % Plt Count 201 (130-400) T/MM3 Neut # (Auto) 3.4 (1.8-7.7) T/MM3 Lymph # (Auto) 1.8 (1-4.8) T/MM3 [place] # (Auto) 0.5 (0-0.8) T/MM3 Eos # (Auto) 0.1 (0-0.5) T/MM3 Baso # (Auto) 0.0 (0-0.2) T/MM3 Comprehensive Metabolic Panel 12/05/17 Range/Units 04:07 Sodium 141 (134-144) MEQ/L Potassium 4.0 (3.6-5) MEQ/L Chloride 106 (98-107) MEQ/L Carbon Dioxide 27 (22-30) MEQ/L BUN 19.0 H (7-17) MG/DL Creatinine 0.8 (0.7-1.2) MG/DL Glucose 99 (65-110) MG/DL Calcium 8.7 (8.4-10.2) MG/DL Intake and Output 12/04/17 12/05/17 12/05/17 22:59 06:59 14:59 Intake Total 60 / 60 260 / 260 200 / 200 Output Total 850 / 850 150 / 150 Balance -790 / -790 110 / 110 200 / 200 Intake: Oral 60 / 60 260 / 260 200 / 200 Output: Urine 850 / 850 150 / 150 Other: Urine Appearance Clear Urine Color Yellow Urine Odor Normal Stool Color Brown Brown Stool Consistency Soft Loose Liquid Size of Bowel Movement Small Small # Voids 1 1 # Bowel Movements 1 1 Weight 60.5 kg Patient Weight 12/06/17 06:59 Weight 60.5 kg Assessment and Plan - Assessment and Plan chest tightness, ?unstable angina elevated troponin, ?NSTEMI acute on chronic systolic CHF, EF 25% - per echo 09/2017 at [facility]. Pt unable to take Losartan due to anaphylaxis. Pt unable to take Lisinopril due to cough. Currently, euvolemic. 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 Milian, negative stress test 2014 HTN pulmonary HTN valvular heart disease (moderate MR and AR) Discussed option of heart cath vs. nuclear stress test for chest pain and elevated troponin. Discussed risks and benefits of heart cath and nuclear stress test with patient and . Discussed the option of heart cath with Dr. Tyree Syed at pt and 's request. Heart cath is scheduled with Dr. Javad Paris for tomorrow due to patient last eating at 0915 this morning. Pre-cath orders put in. Discussed anticoagulation option of Eliquis 2.5mg BID. Pt and family have not made a decision yet. If proceed with anticoagulation, await 1-2 weeks to due to risk of hemorrhagic transformation. Agree with increase in beta lito. Pt was personally interviewed and examined by Dr. Javad Paris who created the A& P. Hospital Course Summary Disclaimer: The visit summary below is not to be considered part of the above Progress Note. Hospital Course: 11/30/17-12/01/17 Patient presented with dizziness and a fall, possible vertigo. MRI demonstrated multifocal acute ischemic infarcts in multiple vascular beds. Acutely hypertensive on presentation, some improvement in symptoms after labetalol in the emergency room. Additional neurological symptoms reported after the patient arrived on the floor in the morning of 12/02 with facial droop described and slurring of speech. Known chronic atrial fibrillation but has been intolerant of warfarin and amiodarone in addition to multiple other medications in the past. There are minor neurological deficits present and there appears to be in some fluctuation in symptoms overnight. She is clearly at high risk for stroke based on cardiac disease both due to cardiomyopathy and irregular rhythm. PT/OT/ speech therapy all ordered. Continue telemetry. Uncontrolled hypertension/ hypertensive urgency may have explained presenting symptoms however do not account for neurological fluctuation this morning when blood pressure was stable. Cardiology consulted. 12/02/17 Hemodynamically stable, no gross neurological deficits or changes. Remains on aspirin with SCDs for DVT for prophylaxis. Echocardiogram pending. Rate control improved with low-dose carvedilol. PT/OT have recommended IRU for strengthening. 12/03/17 Clinically improving, anticipate transfer to IRU tomorrow or Tuesday. Echo report available-again demonstrates global hypokinesis with ejection fraction of 30% and valvular heart disease. Persistent atrial fibrillation, adequate rate control. Hemodynamically stable, oxygenating well. Continue therapies. Anticipate converting from ASA to Eliquis in about 1 week. 12/04/17 Probable angina this am, diaphoresis, and chest discomfort all improved with administration of nitroglycerin. Residual belching at time of my assessment. Patient is currently on carvedilol, atorvastatin, and aspirin. Blood pressure will permit increasing carvedilol although patient/family to been reluctant to take medications beyond minimal doses due to patient's sensitivity to meds. Will increase carvedilol 6.25 mg to 3 times a day initially; may require addition of long-acting nitrate. Monitor serial troponins, EKG in a.m.Pepcid initiated for gastric protection.
--- NOTE | 2017-12-05 17:13 | Progress Note ---
- Date 12/05/17 Subjective: Patient is seen resting in bed. Her family is present and speaks for her since she is sleeping. She did not sleep well last night. She has been accepted to the rehab unit, but will not transfer until after she has her heart cath which is scheduled for tomorrow with Dr. Paris. She had CP yesterday am with a bump in her troponin. Dr. Paris has recommended heart cath. Family reports pt has been up walking today and has done well. NO further chest pain. Objective Vital signs: Temperature 97.6 F 12/05/17 06:46 Pulse Rate 79 12/05/17 16:00 Respiratory Rate 18 12/05/17 06:46 Blood Pressure 147/97 H 12/05/17 12:08 Pulse Oximetry 96 12/05/17 06:46 Rhythm: Atrial Fibrillation with Normal Ventricular Rate Height/Weight/BMI: Height 1.6 m Weight 60.5 kg Body Mass Index 23.4 - Constitutional Present: no acute distress, well nourished, well developed - Routine HEENT Exam Head: Present: normocephalic, atraumatic - Routine Respiratory Exam Present: CTA bilaterally. Absent: wheezes - Routine Cardiovascular Exam Present: no murmur, irregularly irregular - Routine Abdominal Exam Present: soft, non distended, non tender - Routine Extremities Exam Present: no edema, normal capillary refill - Routine Skin Exam Present: dry, warm - Routine Neurological Exam Absent: alert (sleeping during exam/visit) - Routine Lymphatic Exam Lymphatic: Absent: adenopathy - Routine Psychiatric Exam Present: unable to assess Results - Labs CBC & Chem 7: 12/05/17 04:07 12/05/17 04:07 Assessment and Plan (1) Gait instability Problem details: With fall Current visit: Yes Status: Acute (2) Atrial fibrillation with rapid ventricular response Current visit: Yes Status: Acute (3) Stroke due to embolism Problem details: Multifocal areas of acute infarct involving left cerebellum, right occipital lobe, and left frontal lobe. Current visit: Yes Status: Acute Assessment and Plan: Impression: Cardioembolic stroke involving multiple vascular territories, acute Acute/chronic systolic congestive heart failure POA NSTEMI Chest pain; probable angina Atrial fibrillation with RVR [id number] 6 Hypertensive heart disease Dizziness/vertigo CAD Hypothyroidism-TSH 7.97; 13 on 09/26/70 Valvular heart disease, MR, AI, pulmonary hypertension Plan: No further chest pain. Overall patient doing well. Dr. Paris will be putting in orders for heart cath for tomorrow. Heart cath tomorrow with Dr. Paris. If all goes well, plan for DC to IRU. DVT Prophylaxis: SCD's GI Prophylaxis: Pepcid Resuscitation Status: Full Code - Physician Narrative Physician: Barbara Sousa MD Narrative: Date: 12/05/17 Time: 2214 Mrs. Mckeon was seen with her at the bedside this morning. Patient reported no recurrent episodes of chest pain, diaphoresis, or dyspnea. She describes fatigue and her reported family has decided to proceed with heart catheterization as described above. Plans were reviewed with Dr. Paris prior to visiting with the patient. No recurrent vertigo described. Patient was resting quietly at the time of my assessment and responded to questions in no soft weak voice Respirations nonlabored, decreased airflow throughout, breath sounds are clear anteriorly Irregular cardiac rhythm, S1-S2 Extremities without edema Telemetry strips reviewed by myself-atrial fibrillation with occasional PVCs Troponin 0.128-0.101-0.102 Cardiac catheterization tomorrow. Anticipate discharge to IRU in the near future unless heart catheter requires alternate interventions. Can convert to Eliquis (family permitting) for stroke prophylaxis in the near future. H2 lito initiated yesterday-has tolerated thus far; has tolerated carvedilol dose 3 times a day over the past 24 hours. Taking atorvastatin. Free T4 1.34; levothyroxine dose not modified although TSH is slightly elevated. Hospital Course Summary Disclaimer: The visit summary below is not to be considered part of the above Progress Note. Hospital Course: 11/30/17-12/01/17 Patient presented with dizziness and a fall, possible vertigo. MRI demonstrated multifocal acute ischemic infarcts in multiple vascular beds. Acutely hypertensive on presentation, some improvement in symptoms after labetalol in the emergency room. Additional neurological symptoms reported after the patient arrived on the floor in the morning of 12/02 with facial droop described and slurring of speech. Known chronic atrial fibrillation but has been intolerant of warfarin and amiodarone in addition to multiple other medications in the past. There are minor neurological deficits present and there appears to be in some fluctuation in symptoms overnight. She is clearly at high risk for stroke based on cardiac disease both due to cardiomyopathy and irregular rhythm. PT/OT/ speech therapy all ordered. Continue telemetry. Uncontrolled hypertension/ hypertensive urgency may have explained presenting symptoms however do not account for neurological fluctuation this morning when blood pressure was stable. Cardiology consulted. 12/02/17 Hemodynamically stable, no gross neurological deficits or changes. Remains on aspirin with SCDs for DVT for prophylaxis. Echocardiogram pending. Rate control improved with low-dose carvedilol. PT/OT have recommended IRU for strengthening. 12/03/17 Clinically improving, anticipate transfer to IRU tomorrow or Tuesday. Echo report available-again demonstrates global hypokinesis with ejection fraction of 30% and valvular heart disease. Persistent atrial fibrillation, adequate rate control. Hemodynamically stable, oxygenating well. Continue therapies. Anticipate converting from ASA to Eliquis in about 1 week. 12/04/17 Probable angina this am, diaphoresis, and chest discomfort all improved with administration of nitroglycerin. Residual belching at time of my assessment. Patient is currently on carvedilol, atorvastatin, and aspirin. Blood pressure will permit increasing carvedilol although patient/family to been reluctant to take medications beyond minimal doses due to patient's sensitivity to meds. Will increase carvedilol 6.25 mg to 3 times a day initially; may require addition of long-acting nitrate. Monitor serial troponins, EKG in a.m.Pepcid initiated for gastric protection. 12/05/17 No further chest pain. Overall patient doing well. Dr. Paris will be putting in orders for heart cath for tomorrow. Heart cath tomorrow with Dr. Paris. If all goes well, plan for DC to IRU
[2017-12-05] MEDS: ATORVASTATIN 40 MG TABLET PO SCH (22:12)
[2017-12-06] MEDS ORDERED: NS 1,000 ML IV SCH (05:00)
[2017-12-06] MEDS: FAMOTIDINE 20 MG TABLET PO SCH (08:20)
[2017-12-06] MEDS: CARVEDILOL 6.25 MG TABLET PO SCH ×2 (08:20→12:10)
[2017-12-06] MEDS: ASPIRIN 81 MG CHEWABLE TABLET PO SCH (08:20)
[2017-12-06] MEDS: SPIRONOLACTONE 25 MG TABLET PO SCH (08:20)
[2017-12-06] MEDS ORDERED: Verapamil 5 MG/2 ML VIAL ONE (09:25)
[2017-12-06] MEDS ORDERED: NITROGLYCERIN 50MG INJECTION IV ONE (09:25)
[2017-12-06] MEDS ORDERED: HEPARIN 1,000unit/ml INJECTION 10ml ONE (09:25)
[2017-12-06] MEDS ORDERED: HEPARIN 1,000 UNITS/500 ML PREMIX (*CVL ONLY*) IV ONE (09:32)
[2017-12-06] MEDS ORDERED: LIDOCAINE 1% (10mg/ml) 30ml SDV INJ ONE (09:33)
[2017-12-06] MEDS ORDERED: FentaNYL 100 MCG/2 ML INJECTION ONE (10:11)
[2017-12-06] MEDS ORDERED: MIDAZOLAM 2mg/2ml INJECTION ONE (10:11)
[2017-12-06] MEDS ORDERED: NITROGLYCERIN 0.4 MG SUBLINGUAL TABLET SL PRN (11:24)
[2017-12-06] MEDS ORDERED: Bisacodyl EC TAB 5 MG TABLET PO PRN (11:24)
[2017-12-06] MEDS ORDERED: ONDANSETRON 4 MG/2 ML INJECTION IVP PRN (11:24)
[2017-12-06] MEDS ORDERED: MORPHINE SULFATE 4mg INJECTION IVP PRN ×2 (11:24)
[2017-12-06] MEDS ORDERED: LORazepam 0.5 MG TABLET PO PRN (11:24)
[2017-12-06] MEDS ORDERED: ACETAMINOPHEN 325 MG TABLET PO PRN (11:24)
[2017-12-06] MEDS ORDERED: HYDROCODONE/APAP 5mg/325mg TABLET PO PRN (11:24)
[2017-12-06] MEDS ORDERED: BISACODYL 10 MG SUPPOSITORY RECTALLY PRN (11:24)
[2017-12-06] MEDS ORDERED: MAG-AL + SIM ORAL LIQUID 30ml PO PRN (11:24)
[2017-12-06] MEDS ORDERED: ATROPINE 1 MG/ML INJECTION IVP PRN (11:24)
[2017-12-06] MEDS ORDERED: PROMETHAZINE 25 MG INJECTION IVP PRN (11:24)
[2017-12-06] MEDS ORDERED: METOCLOPRAMIDE 10mg/2ml INJECTION IVP PRN (11:24)
[2017-12-06 11:33] VITALS: TEMP 96.8
[2017-12-06 15:32] VITALS: BP 180/81; PULSE 77; RESP 20; O2SAT 96
--- NOTE | 2017-12-06 15:43 | Cardiac Catheterization Report ---
DATE 12/06/2017 PROCEDURE PERFORMED 1. Transradial left heart catheterization, LV gram, coronary angiogram. 2. Moderate conscious sedation estimated time of 45 minutes administered by independent staff. INDICATIONS Elderly lady with coronary artery disease, prior LAD stent in 2009, chronic incomplete left [id number] and atrial fibrillation. She presented with small embolic strokes and elevated troponin. She subsequently developed an episode of chest tightness and diaphoresis that was nonexertional. She follows with Dr. 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 She and the family were advised on the indications, alternatives, risks and benefits of heart catheterization, possible complication including but not limited to contrast allergy, vascular damage, hematoma, infection, renal failure, hemodialysis, myocardial infarction , stroke or and they agreed to proceed. NARRATIVE OF PROCEDURE The patient was brought to the cardiac cath laboratory and received IV sedation of Versed 1 mg and Fentanyl 25 mcg. Under sterile technique, I accessed the right wrist and injected lidocaine 1% about 1.5 mL locally, then cannulated the right radial artery using modified Seldinger percutaneous technique. A 6- [place] Slender sheath was introduced in place. I advanced a table wire over the [place] catheter. I then exchanged for a baby J wire due to tortuosity in the subclavian artery, still was unable to advance down so I took the wire out and injected an angiogram which showed extreme tortuosity of the subclavian artery , making a 360 degree loop and then the wire after that would advance up the carotid artery but not down toward the aorta. There was calcification also on loop. After several attempts, I stopped there, pulled the catheter and the wires and paid attention to the left wrist. I injected lidocaine under sterile technique, injected lidocaine 1% 1.5 mL. Then I accessed the left radial artery without difficulty using modified Seldinger percutaneous technique. A 6- [place] Slender sheath was introduced in place. The side arm was aspirated and flushed. Intraarterial drug combo was given through both right and left radial sheaths at the time of the insertion. The procedure was well tolerated using a [place] catheter with a table wire. There was much less tortuosity in the left subclavian artery. On getting in the left ventricle for a LV gram, there were frequent runs of nonsustained VT that were catheter-induced so it quite limited LV gram as I was pulling back across the aortic valve to prevent further ventricular arrhythmias. The procedure was well tolerated. There were no immediate complications. TR band was deployed over both radial arterial sites for hemostasis. There were no immediate complications. For the amount of contrast used, fluoroscopy time, exact catheters used and detailed hemodynamic data, please refer to the printout sheet. FINDINGS 1. HEMODYNAMICS: LV EDP was 5 mmHg (this was measured after administration of intraarterial verapamil, nitroglycerin, as well as intravenous Fentanyl and Versed, that may all lower the pressure). There was no significant pressure gradient across or below the aortic valve present. 2. CORONARY ANGIOGRAM: Left main coronary artery is large and normal. LAD is a large vessel that has a very proximal stent. It seems to cover the ostium of the LAD. The stent itself is widely patent, exhibits slight tapering distally. The mid LAD exhibits a shelf-like lesion, heavily calcified, precedes the origin of the large diagonal branch. This was examined carefully in multiple projections. It is an eccentric lesion estimated about 50%, best seen on the caudal views. Diagonal branch and the distal LAD are free from any occlusive disease. There is a large ramus branch that is widely patent. There is a fairly small size left circumflex artery that is free from occlusive disease, gives origin to tiny obtuse marginal and posterolateral branches. The right coronary artery is a very large and dominant vessel, gives origin to a RPDA and RPLB branch, exhibits only minor scattered plaquing. Fairly limited LV gram shows significant cardiomyopathy, moderate LV systolic dysfunction. IMPRESSION 1. Single vessel coronary artery disease as manifested by a very proximal LAD stent that is patent, mid LAD shelf-like heavily calcified lesion angiographically estimated just over 50%. 2. Dominant RCA. 3. Moderate cardiomyopathy. DISCUSSION AND PLAN 1. At this time, medical therapy for coronary artery disease is advised. 2. The angiogram does not support diagnosis of non-STEMI, so her troponin elevation is nonspecific, likely related to congestive heart failure and cardiomyopathy. 3. based on her future clinical sourse ,consider Future pharmacological stress nuclear scan and followup with her milk condenser, Dr. Syed. If patient has future chest pain, could consider iFR or IVUS to her mid LAD lesion. RACHAEL
--- NOTE | 2017-12-06 16:03 | Discharge Summary ---
Discharge Information Date of admission: 11/30/17 20:18 Anticipated date of discharge: 12/06/17 Attending Physician: Maame Tracey MD Primary care physician: Dr. Irene Sung (Patient is planning to establish with her.) Consults: Consulting Provider: Ag Paris - Discharge Diagnosis (1) Gait instability Status: Acute (2) Atrial fibrillation with rapid ventricular response Status: Acute (3) Stroke due to embolism Status: Acute Cardioembolic stroke involving multiple vascular territories, acute Acute/chronic systolic congestive heart failure POA Chest pain; s/p heart cath with Dr. Paris (12/06/17) 50% stenosis LAD - rec medical mngmt Atrial fibrillation with RVR [id number] 6 Hypertensive heart disease Dizziness/vertigo CAD Hypothyroidism-TSH 7.97; 13 on 09/26/70 Valvular heart disease, MR, AI, pulmonary hypertension - Procedures Procedures: Date of Exam: 12/05/17 Type of Exam(s): CA heart cath LT DATE 12/06/2017 PROCEDURE PERFORMED 1. Transradial left heart catheterization, LV gram, coronary angiogram. 2. Moderate conscious sedation estimated time of 45 minutes administered by independent staff. INDICATIONS Elderly lady with coronary artery disease, prior LAD stent in 2009, chronic left [id number] and atrial fibrillation. She presented with small embolic strokes and elevated troponin. She subsequently developed a period of chest tightness and diaphoresis that was nonexertional. She follows with Dr. Tyree Syed, her belt picker. She and the family were advised on the indications, alternatives, risks and benefits of heart catheterization, possible complication including but not limited to contrast allergy, vascular damage, hematoma, infection, renal failure, hemodialysis, myocardial infarction , stroke or and they agreed to proceed. NARRATIVE OF PROCEDURE The patient was brought to the cardiac cath laboratory and received IV sedation of Versed 1 mg and Fentanyl 25 mcg. Under sterile technique, I accessed the right wrist and injected lidocaine 1% about 1.5 mL locally, then cannulated the right radial artery using modified Seldinger percutaneous technique. A 6- [place] Slender sheath was introduced in place. I advanced a table wire over the [place] catheter. I then exchanged for a baby J wire due to tortuosity in the subclavian artery, still was unable to advance down so I took the wire out and injected an angiogram which showed extreme tortuosity of the subclavian artery , making a 360 degree loop and then the wire after that would advance up the carotid artery but not down toward the aorta. There was calcification also on loop. After several attempts, I stopped there, pulled the catheter and the wires and paid attention to the left wrist. I injected lidocaine under sterile technique, injected lidocaine 1% 1.5 mL. Then I accessed the left radial artery without difficulty using modified Seldinger percutaneous technique. A 6- [place] Slender sheath was introduced in place. The side arm was aspirated and flushed. Intraarterial drug combo was given through both right and left radial sheaths at the time of the insertion. The procedure was well tolerated using a [place] catheter with a table wire. There was much less tortuosity in the left subclavian artery. On getting in the left ventricle for a LV gram, there were frequent runs of nonsustained VT that were catheter-induced so it quite limited LV gram as I was pulling back across the aortic valve to prevent further ventricular arrhythmias. The procedure was well tolerated. There were no immediate complications. TR band was deployed over both radial arterial sites for hemostasis. There were no immediate complications. For the amount of contrast used, fluoroscopy time, exact catheters used and detailed hemodynamic data, please refer to the printout sheet. FINDINGS 1. HEMODYNAMICS: LV EDP was 5 mmHg (this was measured after administration of intraarterial verapamil, nitroglycerin, as well as intravenous Fentanyl and Versed, that may all lower the pressure). There was no significant pressure gradient across or below the aortic valve present. 2. CORONARY ANGIOGRAM: Left main coronary artery is large and normal. LAD is a large vessel that has a very proximal stent. It seems to cover the ostium of the LAD. The stent itself is widely patent, exhibits slight tapering distally. The mid LAD exhibits a shelf-like lesion, heavily calcified, precedes the origin of the large diagonal branch. This was examined carefully in multiple projections. It is an eccentric lesion estimated about 50%, best seen on the caudal views. Diagonal branch and the distal LAD are free from any occlusive disease. There is a large ramus branch that is widely patent. There is a fairly small size left circumflex artery that is free from occlusive disease, gives origin to tiny obtuse marginal and posterolateral branches. The right coronary artery is a very large and dominant vessel, gives origin to a RPDA and RPLB branch, exhibits only minor scattered plaquing. Fairly limited LV gram shows significant cardiomyopathy, moderate LV systolic dysfunction. IMPRESSION 1. Single vessel coronary artery disease as manifested by a very proximal LAD stent that is patent, mid LAD shelf-like heavily calcified lesion angiographically estimated just over 50%. 2. Dominant RCA. 3. Moderate cardiomyopathy. DISCUSSION AND PLAN 1. At this time, medical therapy for coronary artery disease is advised. 2. The angiogram does not support diagnosis of non-STEMI, so her troponin elevation is nonspecific, likely related to congestive heart failure and cardiomyopathy. 3. Future pharmacological stress nuclear scan and clinical followup with her belt picker, Dr. Syed. If patient has future chest pain, consider iFR or IVUS to her mid LAD lesion. Date of Exam: 12/01/17 Type of Exam(s): US echo doppler complete DATE OF PROCEDURE December 01, 2017 This is a two-dimensional echo with spectral Doppler, color-flow and M-mode. It was obtained in a patient with hypertension and congestive heart failure. Left atrium is dilated. Left ventricular end-diastolic dimension is normal. Left ventricular wall thickness is mildly increased. LV systolic function is reduced with global hypokinesia with ejection fraction in the range of 30%. Right atrium is normal. Right ventricle is normal. Aortic root dimension is normal. Mitral valve is morphologically normal with mild mitral regurgitation. Aortic valve shows fibrocalcific changes with no stenosis. Moderate aortic insufficiency is present. Tricuspid valve shows mild tricuspid regurgitation with normal estimated pulmonary artery systolic pressure of 29. Pulmonary valve shows mild pulmonary insufficiency. There is no pericardial effusion. IMPRESSION 1. Global hypokinesia with ejection fraction of about 30%. 2. Left atrial dilation. 3. Mild concentric left ventricular hypertrophy. 4. Mild mitral regurgitation. 5. Aortic sclerosis with moderate aortic insufficiency. 6. Mild tricuspid regurgitation with normal estimated pulmonary artery systolic pressure of 29. 7. Mild pulmonary insufficiency. - Laboratory Labs: 12/05/17 04:07 12/06/17 05:04 - Radiology Radiology: Date of Exam: 12/01/17 Indication: vertigo/dizziness, HTN urgency PROCEDURE: MR head/brain/ang head wo/w: Findings: MRI head: Motion artifact. Moderate generalized atrophy. Multifocal areas of acute diffusion restriction most prevalent in the left cerebellar hemisphere and cerebellar vermis. Smaller foci of acute diffusion restriction in the right occipital lobe on diffusion weighted image #10. There is also an additional focus of acute diffusion restriction in the left posterior frontal lobe on image #18. The ventricles are of normal size, shape, and contour for the patient's age. There are small nonspecific punctate areas of T2-weighted and T2 FLAIR weighted signal abnormality in the deep frontoparietal white matter that most likely represent small vessel ischemic disease. This is of a degree that is considered to be normal for the patient's age. The brain stem, cerebellum, and cerebral hemispheres otherwise have a normal morphologic appearance as well as MR signal intensity on all pulse sequences. Following intravenous administration of contrast, no areas of abnormal enhancement are evident. There is no evidence of an intracranial mass lesion, intracranial hemorrhage, or hydrocephalus. The visualized portions of the orbits, calvarium, paranasal sinuses, and skull base demonstrate no significant abnormality. MRA head: The intracranial portions of the vertebral arteries, internal carotid arteries, and their major branches show no significant stenosis or other vascular anomaly. No aneurysms or vascular malformations are evident. Left posterior communicating artery noted. Impression: 1. MRI head: Multifocal areas of acute infarct involving the left cerebellum, right occipital lobe and left frontal lobe. This involves multiple vascular territories including the left PICA, right ADVOCACY DIRECTOR and left MCA. Involvement of multiple vascular territories suggests an embolic cause. 2. MRA head: No evidence of aneurysm or flow-limiting arterial stenosis. = = = = = = = = = = = = = = = = = = = = = = = = = = = = = = = = = = = = = = = = = = = = = = = = = = = = = = = = = = = Date of Exam: 11/30/17 INDICATION: cough PROCEDURE: CHEST 2-VIEWS UPRIGHT (PA & LAT) FINDINGS: Increased prominence of the interstitial markings noted. No pleural effusion or pneumothorax. Cardiac silhouette remains moderately enlarged. Mediastinal contours are stable. Pulmonary vascularity is prominent. Bony demineralization with old compression fractures in the spine. Impression: Increasing interstitial prominence with an appearance most suggestive of mild to moderate pulmonary edema. Atypical/viral pneumonia could have a similar appearance. Recommend clinical and laboratory correlation. History of Present Illness HPI: Mrs. Mckeon is a 87 yo female who presented to the emergency room yesterday evening via EMS for dizziness and fall at home. Her is at the bedside providing history due to patient fatigue/hearing loss. Patient was ambulating normally yesterday until about 3 PM when she attempted to get up from a chair and fell to the left. She crawled to the phone and called her who is outside. She was able to assist him using both legs when he helped her get up and into a chair. Her speech was not slurred at that time but she did complain of dizziness and felt like she was falling to the left. She subsequently told her and daughter that she needed to later her left side so the "room would straighten out". This persisted in the emergency room where head CT was negative for acute pathology. Patient had no difficulty eating or moving about earlier in the day. Blood pressure was normal when EMS arrived but the patient was described as being diaphoretic. Patient did not describe chest pain at any point and continues to deny now. Vertigo was reported in preliminary reports last night but no focal neurological deficits. The patient's blood pressure was elevated on arrival in the emergency room ranging from systolic of 171/89 initially to maximum systolic of 203 and maximum diastolic of 120. She was treated with IV labetalol and her believes dizziness improved after blood pressure was lowered. Atrial fibrillation was initially rapid with rates up to 126 which prompted a dose of IV Cardizem prior to transfer to the floor. This morning the patient's speech was reported to be more slurred than normal and drooping of the right side of the face was described. Her daughter feels she is having some difficulty swallowing pills this morning and patient describes indigestion/belching. The patient has underlying atrial fibrillation with [id number] score of 5-6 and she required hospitalization at [facility] for management of edema. She is intolerant of lisinopril and Cozaar and has not tolerated up titration of carvedilol. Lasix is dosed intermittently based on edema. The patient's and daughter report that she really hasn't bounced back from the hospitalization for heart failure and has been more fatigued with mild residual excisional dyspnea and variable edema since that time. She has been using a cane intermittently and has been weaker than what they consider normal. In addition to chronic atrial fibrillation she has known single-vessel coronary artery disease with a stent in the LAD placed approximately 2009 and nonischemic cardiomyopathy with ejection fraction of 25% in September. She has moderate MR and AR and pulmonary hypertension by records obtained from her belt picker's office. She's been intolerant of warfarin and amiodarone in the past. She actually visited her belt picker in [place] yesterday (Dr Tyree Syed) who said that she was in good health. She does describe however earlier in the week that she had taken some oral Lasix for some leg swelling and some weight gain. She says that her dry weight at home is around 135 pounds 440 pounds in the hospital (she is 65 kg her 143 pounds here today.) She denies any dietary indiscretions she denies missing any doses of her carvedilol. She usually takes 6.25 mg daily and her blood pressure at home typically in's around 145/78. Her pulse is typically 77 and her saturations are in the mid to high 90s. She does not take any Coumadin anymore she had a history of a reaction to it. She takes a Guyanese herb "Netozyme" that acts as a blood thinner that "has been working because they haven't found any clots" Objective Vital signs: Temperature 96.8 F 12/06/17 11:30 Pulse Rate 77 12/06/17 15:30 Respiratory Rate 20 12/06/17 15:30 Blood Pressure 180/81 H 12/06/17 15:30 Pulse Oximetry 96 12/06/17 15:30 Rhythm: Atrial Fibrillation with Normal Ventricular Rate Height/Weight/BMI: Height 1.6 m Weight 59.5 kg Body Mass Index 23.4 - Constitutional Present: no acute distress, well nourished, well developed - Routine HEENT Exam Head: Present: normocephalic, atraumatic - Routine Respiratory Exam Present: CTA bilaterally. Absent: wheezes - Routine Cardiovascular Exam Present: irregular rhythm - Routine Abdominal Exam Present: soft, non distended, non tender - Routine Extremities Exam Present: no edema, normal capillary refill - Routine Skin Exam Present: dry, warm - Routine Neurological Exam Present: alert - Routine Lymphatic Exam Lymphatic: Absent: adenopathy - Routine Psychiatric Exam Present: normal affect, cooperative Hospital Course This is a general summary of the patient's hospital course. For more details refer to the complete medical record. Hospital course: 11/30/17-12/01/17 Patient presented with dizziness and a fall, possible vertigo. MRI demonstrated multifocal acute ischemic infarcts in multiple vascular beds. Acutely hypertensive on presentation, some improvement in symptoms after labetalol in the emergency room. Additional neurological symptoms reported after the patient arrived on the floor in the morning of 12/02 with facial droop described and slurring of speech. Known chronic atrial fibrillation but has been intolerant of warfarin and amiodarone in addition to multiple other medications in the past. There are minor neurological deficits present and there appears to be in some fluctuation in symptoms overnight. She is clearly at high risk for stroke based on cardiac disease both due to cardiomyopathy and irregular rhythm. PT/OT/ speech therapy all ordered. Continue telemetry. Uncontrolled hypertension/ hypertensive urgency may have explained presenting symptoms however do not account for neurological fluctuation this morning when blood pressure was stable. Cardiology consulted. 12/02/17 Hemodynamically stable, no gross neurological deficits or changes. Remains on aspirin with SCDs for DVT for prophylaxis. Echocardiogram pending. Rate control improved with low-dose carvedilol. PT/OT have recommended IRU for strengthening. 12/03/17 Clinically improving, anticipate transfer to IRU tomorrow or Tuesday. Echo report available-again demonstrates global hypokinesis with ejection fraction of 30% and valvular heart disease. Persistent atrial fibrillation, adequate rate control. Hemodynamically stable, oxygenating well. Continue therapies. Anticipate converting from ASA to Eliquis in about 1 week. 12/04/17 Probable angina this am, diaphoresis, and chest discomfort all improved with administration of nitroglycerin. Residual belching at time of my assessment. Patient is currently on carvedilol, atorvastatin, and aspirin. Blood pressure will permit increasing carvedilol although patient/family to been reluctant to take medications beyond minimal doses due to patient's sensitivity to meds. Will increase carvedilol 6.25 mg to 3 times a day initially; may require addition of long-acting nitrate. Monitor serial troponins, EKG in a.m.Pepcid initiated for gastric protection. 12/05/17 No further chest pain. Overall patient doing well. Dr. Paris will be putting in orders for heart cath for tomorrow. Heart cath tomorrow with Dr. Paris. If all goes well, plan for DC to IRU 12/06/17 Patient had a heart cath today with Dr. Paris. Has 50% stenosis of the LAD, Dr. Paris recommends medical management. He states "the angiogram does not support diagnosis of non-STEMI, so her troponin elevation is nonspecific, likely related to congestive heart failure and cardiomyopathy." She is ok to be DC'd to IRU today. Continue weight restrictions Dr. Paris has outlined in discharge plan. Will plan to start Eliquis 2.5 twice a day Dec 15 which is 2 wks following her stroke. Time spent with patient: discharge greater than 30 minutes Resuscitation Status: Full Code Discharge Plan - Discharge Disposition Discharge Date: 03/18/17 Disposition: 60 To [facility] [place] *Condition: Improved Reason For Visit (Visit label in EMR): hypertensive urgency, possible CHF - Discharge Medications *Discharge Medications: New Acetaminophen [Tylenol] 325 - 650 mg PO Q5H PRN tab PRN Reason: Pain Aspirin Chewable [ASA] 81 mg PO DAILY tab.chew Bisacodyl Supp [Dulcolax] 10 mg RECTALLY DAILY PRN suppositor PRN Reason: Constipation Bisacodyl EC TAB [Dulcolax] 5 mg PO DAILY PRN tab PRN Reason: Constipation Carvedilol [Coreg] 6.25 mg PO TIDWM tab Famotidine [Pepcid] 20 mg PO BID tab Furosemide [Lasix] 40 mg PO DAILY tab Hydrocodone/APAP 5/325 [[place] 5/325] 1 - 2 tab PO Q5H PRN tab PRN Reason: Pain Mag-Al + Sim Oral Liq [Maalox Plus] 30 ml PO Q3H PRN udc PRN Reason: Indigestion Metoclopramide [Reglan] 5 - 10 mg IVP Q6H PRN vial PRN Reason: Nausea &/Or Vomiting Milk of Magnesia [Mom] 30 ml PO DAILY PRN udc PRN Reason: Constipation Nitroglycerin [Nitrostat] 0.4 mg SL Q5M PRN tab PRN Reason: Angina Spironolactone [Aldactone] 25 mg PO DAILY tab Atorvastatin [Lipitor] 40 mg PO HS tab LORazepam [Ativan] 0.5 mg PO Q6H PRN tab PRN Reason: Anxiety Continue Levothyroxine Tab [Synthroid] 25 mcg PO ACB Discontinued Carvedilol [Carvedilol] 6.25 mg PO BID - Discharge Packet/Instructions *Diet: cardiac *Activity: do not lift, push, pull more than 5 Lb. for 2 week. no driving for 72 hrs *Pain Management/Treatment: Tylenol 650 mg every 6 hrs as needed *Wound Care: keep site dry ,clean and open to air Additional Instructions: Start Eliquis 2.5 mg twice a day December 15 for stroke prevention. *Expected Signs/Symptoms: mild discomfort *Notify Physician if: discharge redness or severe pain at the site , severe numbness and tingling in the hand or fingers turning cold or pale . call 911 if severe or sudden swelling , brisk or pulsating bleed from heart cath entry site. severe numbness and tingling in the hands/fingers turning cold or very pale. *During Business Hours Contact: *After Business Hours Contact: *Pending Lab/Results: No Pending Lab - IRU/GEN Discharge/Transfer - Referrals/Follow Up - Patient Handouts Patient [place]: [facility] [place] [facility] [place] Rad - Dismissal Complete Discharge Instructions are:: Complete Physician Narrative - Narrative Physician: other (Maame Tracey MD) Attestation Narrative: Date: 12/06/17 Time: 1643 Patient was independently examined by myself. Plan of care was discussed with JUANCHO Mckeon and agree with above. Patient feeling better this am. She had heart cath today with recommendations for medical management. She was alert and cooperative on exam with no significant pain. Plan for discharge to IRU today. Will start eliquis in two weeks to avoid any hemorrhagic conversion of CVA.
[2017-12-07] MEDS ORDERED: LEVOTHYROXINE 25 MCG TABLET PO SCH (06:30)
== END 2017-12-06 16:20 | DRG 64 ==
LOC: ED 15:41 → SUATTDRO 20:18 → MED 20:18 → SRG 12-06 06:29
PROVIDERS: ADMIT Pediatrics; ATTEND Pediatrics

== ENCOUNTER 2017-12-06 16:23 | Inpatient (IN) ==
[2017-12-06] MEDS ORDERED: FALL RISK - PHARMACY CONSULT XX ONE (17:14)
[2017-12-06] MEDS ORDERED: ACETAMINOPHEN 325 MG TABLET PO PRN (17:14)
[2017-12-06] MEDS ORDERED: NITROGLYCERIN 0.4 MG SUBLINGUAL TABLET SL PRN (17:14)
[2017-12-06] MEDS ORDERED: Bisacodyl EC TAB 5 MG TABLET PO PRN (17:14)
[2017-12-06] MEDS ORDERED: BISACODYL 10 MG SUPPOSITORY RECTALLY PRN (17:14)
[2017-12-06] MEDS ORDERED: MAG-AL + SIM ORAL LIQUID 30ml PO PRN (17:14)
[2017-12-06] MEDS ORDERED: LORazepam 0.5 MG TABLET PO PRN (17:14)
[2017-12-06] MEDS ORDERED: HYDROCODONE/APAP 5mg/325mg TABLET PO PRN (17:14)
[2017-12-06] MEDS ORDERED: METOCLOPRAMIDE 10mg/2ml INJECTION IVP PRN (17:14)
[2017-12-06] MEDS ORDERED: ATROPINE 1 MG/ML INJECTION IVP PRN (17:14)
--- NOTE | 2017-12-06 17:47 | IRU History & Physical Report ---
HPI [facility] Date: Date: 12/06/17 Time: 1738 Chief complaint: I had a stroke and I'm weak HPI: Ms. Mckeon is a pleasant 87-year-old female referred by Dr. Barbara Sousa. She states that she does not have a primary care physician although sees a fitter welder in [place]. She reports that she was trying to walk with her walker at home on the afternoon of 11/30/2017. She suddenly had dizziness and fell to the floor. She developed an abrasion on her left olecranon process and believes that she had her left cheek. However she recalls the entire event and states that she was never unconscious. She was able to crawl over and answer a telephone call. She reported significant dizziness and was brought to the emergency department for evaluation of her dizziness and the fall. In the merge department on 2017 she was noted to have elevated blood pressure along with symptoms consistent with vertigo. She was given 20 mg of labetalol IV plus diltiazem plus some Lasix. She continued to be quite dizzy and unsteady and for this reason was admitted to the hospital under the hospitalists service. She was noted to have atrial fibrillation, apparently chronically, and takes a [place]istanian extract for a blood thinner. She does see Dr. Tyree Syed in [place] who is her fitter welder. She recently saw him and was told that she was doing fairly well. She does have history of stent placement previously. Initial diagnosis in the emergency department was hypertensive urgency with possible congestive heart failure. Head CT on the day of admission was normal. Her initial chest x-ray suggested mild to moderate pulmonary edema. Diagnoses on the admission history and physical included acute congestive heart failure, hypertensive heart disease, gait instability, fall, atrial fibrillation with rapid ventricular response, hypothyroidism and hypertension. Echocardiogram was obtained on December 01 demonstrating global hypokinesis with ejection fraction 30%. There was left atrial dilatation, concentric LVH, mild mitral regurgitation , aortic sclerosis with mild aortic insufficiency, mild TR with normal pulmonary artery pressure of 29 and mild pulmonary insufficiency. She was treated for congestive heart failure with intravenous Lasix. MRI of the head was performed. This demonstrated multifocal areas of acute infarct involving left cerebellum, right occipital lobe and left frontal lobe involving multiple vascular territories including left PICA, right CUPOLA TENDER and left MCA. This suggested a shower of emboli and likely the source was cardioembolic from her heart. She was seen in consultation by Dr. Javad Paris who performed a cardiac catheterization on her today. (Initial attempt was made via the right radial artery. However vessels were tortuous proximally and for this reason the right side was abandoned. Left radial artery approach was subsequently undertaken successfully. However, for these reasons, she has limited weightbearing in both wrists for a few days.) She had complained of chest discomfort and had history of known coronary disease. The catheterization today demonstrated no critical stenoses. Previously placed stent was patent. With regard to the atrial fibrillation, she has reportedly been intolerant to warfarin or has declined it. Reportedly she does not wish to take any other agents at the present time. With regard to her heart failure, she has been intolerant to losartan and lisinopril and has not tolerated increased doses of carvedilol. Lasix has been given intermittently. She lives with her in their own home. She does use a front-wheeled walker when she "goes for a walk." She does not have a history of known stroke in the past. She has 2 or 3 steps to get up into her home and she states. I did discuss with her the issue of resuscitation. She states that she wants a full code in the event of an arrest including CPR, mechanical ventilation etc. Prior level of functioning is as follows: She was independent for all activities except for walking which was modified independent using a rolling walker 500 feet. Current level of functioning is as follows: She is supervision level for eating , requires minimum assistance for grooming and upper body dressing as well as toileting, bed/chair/wheelchair transfers and toilet transfers. She requires moderate assistance for bathing, maximum assistance for lower body dressing and walking. She demonstrates decreased strength, endurance, poor cognition and poor safety awareness with poor balance noted along with muscle weakness, fatigue and poor trunk and head control. The following medical conditions are noted and require active monitoring and/or management: 1. 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 Atrial fibrillation with recent RVR: Patient is at risk for further cardiac dysrhythmias as well as recurrent strokes. 3. CHF, acute on chronic, systolic (HFrEF) with EF estimated at 30-35%. 4. Hypertension The following therapies will be needed: 1. Physical therapy: for transfers and ambulation and stairs. 2. Occupational therapy: for ADL's and transfers. 3. Medical management: for the above conditions. 4. 24 hour Rehabilitation Nursing to monitor and address the following: Blood pressure monitoring, cardiac status including worsening heart failure, neurologic status [facility] Patient Stated Medical History Cardiac Arrhythmia Yes: a fib Hypertension Yes Hiatal Hernia Yes Shingles Yes Clinic Medical History (Last Reviewed 12/01/17 @ 11:58 by Barbara Sousa MD ) Hypothyroidism (Chronic Medical) Tetanus (Resolved Medical) Hypertension (Chronic Medical) Atrial fibrillation (Acute Medical) CAD (coronary artery disease) (Acute Medical) Cardiomyopathy (Acute Medical) Pulmonary hypertension (Acute Medical) Valvular heart disease (Acute Medical) Surgical History: *Dental work with dentures age 13. *Bilateral Cataract Removal. *Cholecystectomy 1988. *Appendectomy age 13. *Total Abdominal Hysterectomy. BS&O. Bladder "pinned" up. 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 They have 3 children. Review of Systems - Constitutional Constitutional: Present: anorexia, fatigue, lethargy, weakness. Absent: chills , fever(s), headache(s), malaise, night sweats, weight gain, weight loss - EENMT Eyes: Absent: blurry vision, change in vision, diplopia Mouth/Throat: Absent: changes in swallowing, painful swallowing, change in taste , bleeding gums, change in voice - Cardiovascular Cardiovascular: Present: chest pain, dyspnea on exertion. Absent: palpitations , syncope, orthopnea, edema, cyanosis, heart murmur Rhythm: Present: abnormal rhythm Vascular: Absent: intermittent claudication, pedal edema, unilateral swelling - Respiratory Respiratory: Present: dyspnea, dyspnea on exertion. Absent: cough, hemoptysis, wheezing, pain on inspiration, chest congestion, excessive phlegm production - Gastrointestinal Gastrointestinal: Present: constipation. Absent: abdominal pain, change in bowel habits, diarrhea, dyspepsia, dysphagia, early satiety, hematochezia, melena, nausea, vomiting - Musculoskeletal Musculoskeletal: Absent: abnormal gait, arthralgias, back pain, joint swelling, limited range of motion, muscle weakness - Integumentary/Breasts Integumentary: Absent: alopecia, erythema, lesions, pruritus, rash, jaundice - Neurological Neurological: Present: abnormal gait. Absent: abnormal movements, abnormal speech, confusion, convulsions, dizziness, focal weakness, frequent falls, headache(s), loss of vision, memory loss, numbness, paresthesias, tremor(s) - Psychiatric Psychiatric: Absent: abnormal sleep pattern, anxiety, depression - Endocrine Endocrine: Absent: cold intolerance, flushing, heat intolerance, palpitations - Hematologic/Lymphatic Hematologic/Lymphatic: Absent: easy bleeding, easy bruising, lymphadenopathy - Allergic/Immunologic Allergic/Immunologic: Absent: urticaria Medications Home Medications Medication Instructions Recorded Confirmed Type Levothyroxine Tab [Synthroid] 25 mcg PO ACB 11/30/17 12/06/17 History Allergies Allergy/AdvReac Type Severity Reaction Status Date / Time losartan Allergy Severe Anaphylactic Verified 12/01/17 20:55 Shock Tetanus Vaccines and Toxoid Allergy Severe PT HAS HAD Verified 12/01/17 20:55 THE DISEASE Sulfa (Sulfonamide Allergy Mild RASH Verified 12/01/17 20:55 Antibiotics) amiodarone Allergy Unknown Verified 12/01/17 20:55 lisinopril AdvReac Cough Verified 12/01/17 20:55 Results IRU - Labs Labs: I reviewed extensive inpatient records and notes etc. Exam Vital Signs: Temperature 97.8 F 12/06/17 16:36 Pulse Rate 76 12/06/17 16:36 Respiratory Rate 22 12/06/17 16:36 Blood Pressure 169/79 H 12/06/17 16:36 Pulse Oximetry 98 12/06/17 16:36 Height/Weight/BMI: Height 1.6 m Weight 62.6 kg Body Mass Index 24.4 - Constitutional Present: no acute distress, well nourished, well developed, average body habitus , cooperative Comments: hard of hearing - Routine HEENT Exam Head: Present: normocephalic, atraumatic. Absent: cushingoid faces, abrasion, laceration, hematoma Eye: Present: EOMI, PERRL. Absent: conjunctival icterus, scleral injection, periorbital swelling, nystagmus ENT: Present: mucous membranes moist, oropharynx clear. Absent: dentition normal (upper dentures, some missing teeth in the mandible.) - Routine Neck Exam Present: supple, full ROM, trachea midline. Absent: lymphadenopathy, thyromegaly, tenderness, swelling - Routine Chest/Breast/Axilla Exam Chest wall: Absent: tenderness, mass Axillae: Absent: lymphadenopathy, mass - Routine Respiratory Exam Present: CTA bilaterally (lungs are clear in the upper lung renner.), crackles ( occasional crackles in the bases noted.). Absent: accessory muscle use, decreased breath sounds, prolonged expiratory phase, rales, respiratory distress , rhonchi, stridor, wheezes, distant breath sounds - Routine Cardiovascular Exam Present: S1, S2, murmur, irregularly irregular. Absent: gallop, S3, S4, click, irregular rhythm - Routine Abdominal Exam Present: soft, normoactive bowel sounds, non distended, non tender. Absent: rebound, guarding, firm, rigid, organomegaly, mass, hernia, wound - Routine Extremities Exam Present: no edema, non tender, pulses intact. Absent: cyanosis, clubbing - Routine Back/Spine/Pelvis Exam Back/Spine: Present: full ROM. Absent: scoliosis, kyphosis - Routine Skin Exam Present: intact, dry, warm. Absent: cyanosis, erythema, pallor, mottling, petechiae, urticaria, lesions, jaundice - Routine Neurological Exam Present: alert, oriented X3, CN II-XII intact, moving all extremities, normal speech Patient has symmetric strength in the upper and lower extremities bilaterally. No facial droop. Her speech is fluent. - Routine Psychiatric Exam Present: normal affect, normal thought process, cooperative. Absent: depressed , anxious Sepsis Assessment - Evaluation Severe Sepsis: none seen IRU A/P (1) Stroke due to embolism Qualifiers: Precerebral and cerebral artery: middle cerebral artery Laterality of affected vessel: left Qualified Code(s): I63.412 - Cerebral infarction due to embolism of left middle cerebral artery Problem details: Multifocal areas of acute infarct involving left cerebellum, right occipital lobe, and left frontal lobe. Current visit: No Status: Acute Patient is at risk for further neurologic deterioration in terms of bleeding, additional strokes etc. She has multiple deficits upon screening with regard to her strokes. She'll require a multidisciplinary approach for rehabilitation and recovery. (2) Acute congestive heart failure Qualifiers: Heart failure type: systolic Qualified Code(s): I50.21 - Acute systolic ( congestive) heart failure Current visit: No Status: Acute Patient has an ejection fraction between 30 and 35%. She is noticeably dyspneic upon interview. She does have a few crackles. She is at risk for further decline in her cardiac function and compensation. Her congestive heart failure will be taken into account when therapy is planned. (3) Atrial fibrillation with rapid ventricular response Current visit: No Status: Chronic Patient is at risk for further cardiac arrhythmias, hypotension, palpitations. She is at risk for additional strokes. She has apparently declined medicinal anticoagulation in the past. (4) Hypertension Qualifiers: Hypertension type: essential hypertension Qualified Code(s): I10 - Essential (primary) hypertension Current visit: No Status: Chronic DVT Prophylaxis: SCD's Resuscitation Status: Full Code - Course Hospital Course: Obdulio Lyles MD: - Interventions to Obtain Goals PT Treatment Plan: Balance/Proprioception, Functional Activities, Gait Training , Patient/Family Education, Therapeutic Exercise OT Treatment Plan: ADL (Basic Care), Balance Training, IADL, Pt./Family Education Goals Progress/Modifications: She has multiple medical problems and is at risk for additional complications. She has had recent cardioembolic strokes involving multiple areas of the brain including the cerebellum, the latter of which likely has played the largest role in her functional deficits. Patient requires a multidisciplinary approach in view of multiple medical problems including 24 hour rehabilitation nursing and medical supervision. She was screened by speech therapy on acute and is felt to be safe for regular foods and thin liquids. She'll require PT and OT otherwise.
--- NOTE | 2017-12-06 18:01 | IRU 24Hr Post Admit Eval ---
24 Hr Post Admission Physical - Relevant Changes Relevant Changes: No Reviewed: I have reviewed the patient's information and concur with the finding and results of the pre-admission screen. Certification: I certify the patient for rehabilitation. - Patient Condition (1) Stroke due to embolism Status: Acute Qualifiers: Precerebral and cerebral artery: middle cerebral artery Laterality of affected vessel: left Qualified Code(s): I63.412 - Cerebral infarction due to embolism of left middle cerebral artery Code(s): I63.9 - Cerebral infarction, unspecified Classification: Present on IRF Admission, IRF Tx That Should Address Diagnosis, Diagnosis Requiring Medical Follow Up (2) Acute congestive heart failure Status: Acute Qualifiers: Heart failure type: systolic Qualified Code(s): I50.21 - Acute systolic ( congestive) heart failure Code(s): I50.9 - Heart failure, unspecified Classification: Present on IRF Admission, IRF Tx That Should Address Diagnosis, Diagnosis Requiring Medical Follow Up (3) Atrial fibrillation with rapid ventricular response Status: Chronic Code(s): I48.91 - Unspecified atrial fibrillation Classification: Present on IRF Admission, IRF Tx That Should Address Diagnosis, Diagnosis Requiring Medical Follow Up (4) Hypertension Status: Chronic Qualifiers: Hypertension type: essential hypertension Qualified Code(s): I10 - Essential (primary) hypertension Code(s): I10 - Essential (primary) hypertension Classification: Present on IRF Admission, IRF Tx That Should Address Diagnosis, Diagnosis Requiring Medical Follow Up (5) ASHD (arteriosclerotic heart disease) Status: Chronic Code(s): I25.10 - Atherosclerotic heart disease of [place] coronary artery without angina pectoris Classification: Present on IRF Admission, Diagnosis Requiring Medical Follow Up Additional Information: Patient underwent cardiac catheterization today due to chest pain and mild elevation of troponin. Initial attempt via right radial artery was unsuccessful. Subsequent attempt via left radial artery was successful. However , because both sides were utilized, she has limited weightbearing in both wrists on a temporary basis. - Prior Functional Status Lives With: Spouse Residence Type: Apartment/Private Home Assitive Devices: Front Wheeled Walker Prior Functional Status: Indep. at home or school, Used assistive device - Current Functional Status Current Level of Function: Current level of functioning is as follows: She is supervision level for eating , requires minimum assistance for grooming and upper body dressing as well as toileting, bed/chair/wheelchair transfers and toilet transfers. She requires moderate assistance for bathing, maximum assistance for lower body dressing and walking. She demonstrates decreased strength, endurance, poor cognition and poor safety awareness with poor balance noted along with muscle weakness, fatigue and poor trunk and head control. Patient Requirements: The patient requires oversight by rehabilitation physician to manage their rehabilitation treatment plan and multidisciplinary approach to care that can only be provided in an IRF and requires a multidisciplinary approach to care, provided by professional PTs, OTs, STs, dieticians, RTs, rehabilitation nurses and is not available in lesser levels of care. Limitations Req: Mobility Impairment, ADL Impairment Physical Therapy Minutes: 90 Occupational Therapy Minutes: 90 Therapy: The patient is to receive therapy at least 5 days a week. ROM Deficit: Right Upper Extremity, Left Upper Extremity - Complications/Comorbidities Impact on Functional Outcomes: The patient's known systolic heart failure may negatively impact her functional outcome. Barriers to Discharge: Weakness, Balance, Endurance, Medical Limitation - Plan to Avoid Complications Plan to Avoid Complications: The patient cannot receive this care in a lesser intensive setting such as Assisted or Outpatient Therapy due to the patient requiring the following : Because of the patient's recent cardioembolic strokes affecting multiple areas of the brain, she requires a multidisciplinary approach to her recovery. In addition, she has acute on chronic systolic heart failure which is symptomatic with recent pulmonary edema. She has atrial fibrillation with occasional rapid ventricular response. She requires 24 hour rehabilitation nursing to monitor these findings (cardiac and neurologic), medical supervision as well as PT and OT. .
[2017-12-06] MEDS: CARVEDILOL 6.25 MG TABLET PO SCH (18:07)
[2017-12-06] MEDS: FAMOTIDINE 20 MG TABLET PO SCH (21:26)
[2017-12-06] MEDS: ATORVASTATIN 40 MG TABLET PO SCH (21:26)
[2017-12-06] MEDS: SALINE FLUSH 10ml SYRINGE IV PRN (21:27)
[2017-12-07] MEDS: LEVOTHYROXINE 25 MCG TABLET PO SCH (07:18)
[2017-12-07] MEDS: FUROSEMIDE 40 MG TABLET PO SCH (08:44)
[2017-12-07] MEDS: ASPIRIN 81 MG CHEWABLE TABLET PO SCH (08:46)
[2017-12-07] MEDS: SPIRONOLACTONE 25 MG TABLET PO SCH (08:46)
[2017-12-07] MEDS: CARVEDILOL 6.25 MG TABLET PO SCH ×2 (08:47→12:17)
[2017-12-07] MEDS: FAMOTIDINE 20 MG TABLET PO SCH ×2 (08:47→20:30)
--- NOTE | 2017-12-07 16:15 | Consult Note ---
Consult Information - Data of Consult Consult date: 12/07/17 Requesting Physician: Obdulio Lyles MD Primary Care Provider: Dr Sung - Consult Narrative Reason for consult: Medical mangement a-fib, CVA History of present illness: Patient is an 87-year-old female who is known to the hospitalist services following a recent admission for atrial fibrillation and acute CVA. Patient was initially admitted on 11/30/17 under the hospitalist services for atrial fibrillation with RVR as well as acute systolic congestive heart failure and cardioembolic CVA. Although initial Head CT on the day of admission was normal, MRI did revel multifocal areas of acute infarct involving left cerebellum, right occipital lobe and left frontal lobe. On 12/05/17 she underwent a cardiac catheterization by Dr. Paris revealing single-vessel coronary artery disease, proximal LAD stent was placed. She does have moderate cardiomyopathy and CHF. She was stabilized, however, continues to display generalized fatigue and weakness. She does reside independently at home with her . She was screened and accepted to the inpatient rehabilitation unit for ongoing therapy and strengthening. Patient is seen today for initial consultation. She is alert, oriented and pleasant. She is without any complaints other than feeling fatigued from therapy today. Is continue to have bilateral wrist splints on post cardiac catheter. Denies chest pain, shortness of breath or GI concerns. Past Medical History Hypothyroidism (Chronic Medical) Tetanus (Resolved Medical) Hypertension (Chronic Medical) Atrial fibrillation (Acute Medical) CAD (coronary artery disease) (Acute Medical) Cardiomyopathy (Acute Medical) Pulmonary hypertension (Acute Medical) Valvular heart disease (Acute Medical) Surgical History: *Dental work with dentures age 13. *Bilateral Cataract Removal. *Cholecystectomy 1988. *Appendectomy age 13. *Total Abdominal Hysterectomy. BS&O. Bladder "pinned" up. Cardiac stent placed Family History Updates: Brother- cardiac disease. Father-"ruptured esophagus". Mother- CVA. Sister-Atrial fibrillation - Social History Smoking status: Current every day smoker Substance use type: does not use Current residence: Apartment/Private Home Review of Systems All systems PM: 10-point ROS was reviewed, no additional remarkable complaints except - Constitutional Constitutional: Present: fatigue Medications Home Medications Medication Instructions Recorded Confirmed Type Levothyroxine Tab [Synthroid] 25 mcg PO ACB 11/30/17 12/06/17 History Allergies Allergy/AdvReac Type Severity Reaction Status Date / Time losartan Allergy Severe Anaphylactic Verified 12/06/17 19:49 Shock Tetanus Vaccines and Toxoid Allergy Severe PT HAS HAD Verified 12/06/17 19:49 THE DISEASE Sulfa (Sulfonamide Allergy Mild RASH Verified 12/06/17 19:49 Antibiotics) amiodarone Allergy Unknown Verified 12/06/17 19:49 lisinopril AdvReac Cough Verified 12/06/17 19:49 Exam Vital Signs: Temperature 98.4 F 12/07/17 09:34 Pulse Rate 80 12/07/17 09:34 Respiratory Rate 22 12/07/17 09:34 Blood Pressure 162/90 H 12/07/17 09:34 Pulse Oximetry 99 12/07/17 09:34 Height/Weight/BMI: Height 1.6 m Weight 62.6 kg Body Mass Index 24.4 - Constitutional Present: no acute distress, well nourished, well developed - Routine HEENT Exam Eye: Present: EOMI ENT: Present: mucous membranes moist, dentition normal - Routine Respiratory Exam Present: CTA bilaterally. Absent: wheezes - Routine Cardiovascular Exam Present: RRR, S1, S2. Absent: murmur - Routine Abdominal Exam Present: soft, normoactive bowel sounds, non distended. Absent: tenderness - Routine Extremities Exam Present: pulses intact - Routine Back/Spine/Pelvis Exam Back/Spine: Present: full ROM - Routine Skin Exam Present: intact, dry, warm - Routine Neurological Exam Present: alert, oriented X3, CN II-XII intact - Routine Psychiatric Exam Present: normal affect, cooperative Results - Labs CBC & Chem 7: 12/07/17 04:34 12/07/17 04:34 Assessment and Plan (1) Stroke due to embolism Problem details: Multifocal areas of acute infarct involving left cerebellum, right occipital lobe, and left frontal lobe. Current visit: No Status: Acute Assessment and Plan: Impression Debility, weakness Acute CVA Atrial fibulation Hypertensive heart disease Dizziness/vertigo CAD Hypothyroidism-TSH 7.97; 13 on 09/26/70 Valvular heart disease, MR, AI, pulmonary hypertension Plan Agree with admission to IRU under the care of Dr. Lyles for ongoing therapy and strengthening. Spinal services will see patient and medically manage existing comorbidities. Did speak with Dr. Paris, it is okay to remove bilateral wrists blends as it has been 24 hours post cardiac catheter Continue with aspirin and Lipitor given. Acute stroke. Will plan to start Eliquis 2.5 twice a day Dec 1 which is 2 wks following her stroke. Monitor blood pressure, continue on Coreg and Aldactone Encourage work with PT and OT for ongoing strengthening Will discuss further orders and plan of care with attending, Dr. James At time of discharge medical care will return to primary care provider, ? Dr Sung 12/07/2017-7:50 PM-I reviewed this chart, the patient history, and the SENIOR TRIAL ATTORNEY's/PA 's documented findings as above. We discussed and formulated the assessment and plan as above with the additions below.-Dr. James Patient was seen this evening accompanied by her and nephew. She states she's feeling really well. She states she was able to participate with therapy today. She states she doesn't want to be "a couch potato." She feels motivated to get better and go back home. She denies any residual weakness from her stroke. She denies any vision changes or difficulty swallowing. Her speech sounds normal. She's had some "wooziness" which sounds like some mild vertigo that she had even before the stroke. She states she is getting better. On exam she is alert and in no acute distress. Chest is clear to auscultation. Cardiovascular reveals an irregularly irregular rhythm. Abdomen is soft and nontender. Extremity are free of edema. Impression and plan Recent strokes, likely embolic from atrial fibrillation. Plan is to start anticoagulation on December 15. Currently on aspirin and atorvastatin. Continue PT and OT in rehabilitation The patient underwent heart catheterization yesterday which showed a 50% blockage. She had a previous stent with apparently some narrowing. Medical management was recommended. She did not have a new stent placed this hospital course. - Physician Narrative Narrative: Date: 12/07/17 Time: 1606 Hospital Course Summary Disclaimer: The visit summary below is not to be considered part of the above Progress Note. Hospital Course: Impression Debility, weakness Acute CVA Atrial fibulation Hypertensive heart disease Dizziness/vertigo CAD Hypothyroidism-TSH 7.97; 13 on 09/26/70 Valvular heart disease, MR, AI, pulmonary hypertension Plan Agree with admission to IRU under the care of Dr. Lyles for ongoing therapy and strengthening. Spinal services will see patient and medically manage existing comorbidities. Did speak with Dr. Paris, it is okay to remove bilateral wrists blends as it has been 24 hours post cardiac catheter Continue with aspirin and Lipitor given. Acute stroke. Will plan to start Eliquis 2.5 twice a day Dec 1 which is 2 wks following her stroke. Monitor blood pressure, continue on Coreg and Aldactone Encourage work with PT and OT for ongoing strengthening Will discuss further orders and plan of care with attending, Dr. James At time of discharge medical care will return to primary care provider, ? Dr Sung
--- NOTE | 2017-12-07 17:58 | Cardiology Consult Note ---
<Marivel Feliz Kindra - Last Filed: 12/09/17 13:26> History of Present Illness History of present illness: Pt seen on 12/07/17. Mrs. Deyanira Mckeon is a 87 year old female who has a complex cardiac history including systolic CHF with EF of 25%, atrial fibrillation (no anticoagulation), CAD with a LAD stent, HTN, pulmonary HTN and valvular heart disease (moderate MR and AR). Pt had a short run of NSVT this afternoon while sitting in her chair and eating lunch but was asymptomatic. Pt said she is worn out today d/t 2 therapy sessions, but denied chest pain or heart palpitations. She said the sessions only made her tired. Pt has been up to the bathroom with no complaints of dizziness, lightheadedness or dyspnea. Outside records indicate an attempt at increasing her BB and lowering diuretics in September, which was ultimately unsuccessful due to fluid retention and intolerance to increased BB. Patient and family report extreme sensitivity and intolerance to multiple medications including Amiodarone, Lisinopril and Losartan. see Allergy list please. Her LVEF had been in the range of 40% several years ago , with the most recent assessment with Dr strickland ,about 25%. Coronary stent to proximal LAD in 2009 at time of her NH. Review of Systems All systems PM: 10-point ROS was reviewed, no additional remarkable complaints except PFSH Patient Stated Medical History Cardiac Arrhythmia Yes: a fib Hypertension Yes Constipation Yes: takes prune juice at home Hiatal Hernia Yes Hx Incontinence No Shingles Yes Clinic Medical History (Last Reviewed 12/01/17 @ 11:58 by Barbara Sousa MD ) Hypothyroidism (Chronic Medical) Tetanus (Resolved Medical) Hypertension (Chronic Medical) Atrial fibrillation (Acute Medical) CAD (coronary artery disease) (Acute Medical) Cardiomyopathy (Acute Medical) Pulmonary hypertension (Acute Medical) Valvular heart disease (Acute Medical) Family History: Family History (Last Updated 12/01/17 @ 11:56 by Barbara Sousa MD) Brother Heart problem Father Ruptured, esophagus Mother Stroke Sister Atrial fibrillation Sister Atrial fibrillation Medications Home Medications Medication Instructions Recorded Confirmed Type Levothyroxine Tab [Synthroid] 25 mcg PO ACB 11/30/17 12/06/17 History Acetaminophen [Tylenol] 325 - 650 mg PO Q5H PRN tab 12/06/17 12/06/17 Rx Atorvastatin [Lipitor] 40 mg PO HS tab 12/06/17 12/06/17 Rx Famotidine [Pepcid] 20 mg PO BID tab 12/06/17 12/06/17 Rx Furosemide [Lasix] 40 mg PO DAILY tab 12/06/17 12/06/17 Rx LORazepam [Ativan] 0.5 mg PO Q6H PRN tab 12/06/17 12/06/17 Rx Nitroglycerin [Nitrostat] 0.4 mg SL Q5M PRN tab 12/06/17 12/06/17 Rx Spironolactone [Aldactone] 25 mg PO DAILY tab 12/06/17 12/06/17 Rx Apixaban [Eliquis] 2.5 mg PO BID #60 tab 12/15/17 Rx Carvedilol [Coreg] 12.5 mg PO BIDWM #60 tab 12/15/17 Rx Allergies Allergy/AdvReac Type Severity Reaction Status Date / Time losartan Allergy Severe Anaphylactic Verified 12/06/17 19:49 Shock Tetanus Vaccines and Toxoid Allergy Severe PT HAS HAD Verified 12/06/17 19:49 THE DISEASE Sulfa (Sulfonamide Allergy Mild RASH Verified 12/06/17 19:49 Antibiotics) amiodarone Allergy Unknown Verified 12/06/17 19:49 lisinopril AdvReac Cough Verified 12/06/17 19:49 Exam Vital signs: Temperature 97.2 F 12/08/17 10:05 Pulse Rate 83 12/08/17 14:03 Respiratory Rate 20 12/08/17 10:05 Blood Pressure 103/69 12/08/17 14:03 Pulse Oximetry 98 12/08/17 14:02 - Constitutional no acute distress, well developed, cooperative - Routine HEENT Exam Head: Present: normocephalic, atraumatic Eye: Present: EOMI, PERRL ENT: Present: mucous membranes moist Nose: moist mucous membranes - Routine Neck Exam Present: supple, normal carotid upstroke. Absent: JVD, carotid bruit - Routine Respiratory Exam Present: CTA bilaterally. Absent: rhonchi, wheezes, crackles - Routine Cardiovascular Exam Present: irregularly irregular - Routine Abdominal Exam Present: soft, normoactive bowel sounds, non tender. Absent: rebound, guarding , organomegaly, mass - Routine Extremities Exam Present: no edema, pulses intact, normal capillary refill. Absent: cyanosis, clubbing - Routine Skin Exam Present: intact, dry (bilateral radial access sites - no hematoma or drainage). Absent: cyanosis, erythema - Routine Neurological Exam Present: alert, oriented X3, CN II-XII intact, moving all extremities, vision grossly intact, hearing grossly intact, normal speech - Routine Psychiatric Exam Present: normal affect, cooperative Results 12/07/17 04:34 12/07/17 04:34 Intake and Output 12/07/17 12/08/17 12/08/17 22:59 06:59 14:59 Intake Total 120 / 120 Output Total 550 / 550 200 / 200 Balance -550 / -550 -200 / -200 120 / 120 Intake: Oral 120 / 120 Output: Urine 550 / 550 200 / 200 Other: Urine Appearance Clear Clear Urine Color Yellow Yellow Urine Odor Normal # Voids 1 Weight 64.1 kg - Imaging and Cardiology Echo: report reviewed Cardiac cath: report reviewed EKG results: image reviewed (atrial fibrillation in the 80s, NSVT ) Imaging & Cardiology Narrative: 12/09/17 13:24 Heart cath on 12/[address] Javad Paris showed single vessel coronary artery disease as manifested by a very proximal LAD stent that is patent, mid LAD shelf -like heavily calcified lesion angiographically estimated just over 50%; dominant RCA; moderate cardiomyopathy. Echo on 12/01 - Impression 1. Global hypokinesia with ejection fraction of about 30%. 2. Left atrial dilation. 3. Mild concentric left ventricular hypertrophy. 4. Mild mitral regurgitation. 5. Aortic sclerosis with moderate aortic insufficiency. 6. Mild tricuspid regurgitation with normal estimated pulmonary artery systolic pressure of 29. 7. Mild pulmonary insufficiency. Assessment and Plan - Assessment and Plan acute on chronic systolic CHF, EF 25% - per echo 09/2017 at [facility]. Pt unable to take Losartan due to anaphylaxis. Pt unable to take Lisinopril due to cough. Currently, euvolemic. elevated troponin-secondary to CHF, no NSTEMI atrial fibrillation - no anticoagulation due to patient's refusal (takes [place] natural herb), CHADSVASC of 7, HR controlled, cardioversion 2014 acute multiple embolic stroke most likely cardio embolic CAD - LAD stent [address] Milian, negative stress test 2014 HTN pulmonary HTN valvular heart disease (moderate MR and AR) Discussed anticoagulation option of Eliquis 2.5mg BID. Pt and family have not made a decision yet. If proceed with anticoagulation, await 1-2 weeks to due to risk of hemorrhagic transformation. Pt was personally interviewed and examined by Dr. Javad Paris who created the A& P. Hospital Course Summary Disclaimer: The visit summary below is not to be considered part of the above Progress Note. <Ag Paris - Last Filed: 12/19/17 20:42> History of Present Illness Consult reason: known to you Review of Systems All systems PM: 10-point ROS was reviewed, no additional remarkable complaints except PFSH Patient Stated Medical History Cardiac Arrhythmia Yes: a fib Hypertension Yes Constipation Yes: takes prune juice at home Hiatal Hernia Yes Hx Incontinence No Shingles Yes Clinic Medical History (Last Reviewed 12/01/17 @ 11:58 by Barbara Sousa MD ) Hypothyroidism (Chronic Medical) Tetanus (Resolved Medical) Hypertension (Chronic Medical) Atrial fibrillation (Acute Medical) CAD (coronary artery disease) (Acute Medical) Cardiomyopathy (Acute Medical) Pulmonary hypertension (Acute Medical) Valvular heart disease (Acute Medical) Surgical History: *Dental work with dentures age 13. *Bilateral Cataract Removal. *Cholecystectomy 1988. *Appendectomy age 13. *Total Abdominal Hysterectomy. BS&O. Bladder "pinned" up. Cardiac stent placed Family History: Family History (Last Updated 12/01/17 @ 11:56 by Barbara Sousa MD) Brother Heart problem Father Ruptured, esophagus Mother Stroke Sister Atrial fibrillation Sister Atrial fibrillation - Social History Smoking status: Current every day smoker Household members: spouse Current occupational status: retired Current residence: Apartment/Private Home Exam Vital signs: Temperature 98.4 F 12/07/17 09:34 Pulse Rate 80 12/07/17 09:34 Respiratory Rate 22 12/07/17 09:34 Blood Pressure 162/90 H 12/07/17 09:34 Pulse Oximetry 99 12/07/17 09:34 - Routine Cardiovascular Exam Present: S1 (nl), S2 (nl), no murmur. Absent: bradycardia, tachycardia Results 12/07/17 04:34 12/07/17 04:34 CBC 12/07/17 Range/Units 04:34 WBC 6.2 (4.5-11.0) T/MM3 RBC 4.67 (4.00-5.20) M/MM3 Hgb 15.0 (12-16) GM/DL Hct 45.4 (36-46) % Plt Count 199 (130-400) T/MM3 Neut # (Auto) 3.6 (1.8-7.7) T/MM3 Lymph # (Auto) 2.0 (1-4.8) T/MM3 [place] # (Auto) 0.5 (0-0.8) T/MM3 Eos # (Auto) 0.1 (0-0.5) T/MM3 Baso # (Auto) 0.0 (0-0.2) T/MM3 Comprehensive Metabolic Panel 12/07/17 Range/Units 04:34 Sodium 143 (134-144) MEQ/L Potassium 4.2 (3.6-5) MEQ/L Chloride 110 H (98-107) MEQ/L Carbon Dioxide 25 (22-30) MEQ/L BUN 17.0 (7-17) MG/DL Creatinine 0.9 (0.7-1.2) MG/DL Glucose 93 (65-110) MG/DL Calcium 9.5 (8.4-10.2) MG/DL Intake and Output 12/07/17 12/07/17 12/07/17 06:59 14:59 22:59 Intake Total 480 / 480 Output Total 300 / 300 Balance 180 / 180 Intake: Oral 480 / 480 Output: Urine 300 / 300 Other: Urine Appearance Clear Clear Urine Color Yellow Yellow # Voids 1 1 - EKG Interpretation EKG: no acute changes Assessment and Plan - Assessment and Plan NSVT asymptomatic check TSH check Mg increase BB monitor orthostatic BP reiterated to pt and family my recommendation for anticoagulant Rx such as Eliquis to replace ASA , as stated above, They haven't made a decision yet. will follow pt along w you thank you pt was personally interviewed and examined ,reviewed all relevent data and test results ,and the assessment and plan was developed by myself Hospital Course Summary Disclaimer: The visit summary below is not to be considered part of the above Progress Note. Hospital Course: Impression Debility, weakness Acute CVA Atrial fibulation Hypertensive heart disease Dizziness/vertigo CAD Hypothyroidism-TSH 7.97; 13 on 09/26/70 Valvular heart disease, MR, AI, pulmonary hypertension Plan Agree with admission to IRU under the care of Dr. Lyles for ongoing therapy and strengthening. Spinal services will see patient and medically manage existing comorbidities. Did speak with Dr. Paris, it is okay to remove bilateral wrists blends as it has been 24 hours post cardiac catheter Continue with aspirin and Lipitor given. Acute stroke. Will plan to start Eliquis 2.5 twice a day Dec 1 which is 2 wks following her stroke. Monitor blood pressure, continue on Coreg and Aldactone Encourage work with PT and OT for ongoing strengthening Will discuss further orders and plan of care with attending, Dr. James At time of discharge medical care will return to primary care provider, ? Dr Sung
[2017-12-07] MEDS: CARVEDILOL 12.5 MG TABLET PO SCH (18:24)
[2017-12-07] MEDS: ATORVASTATIN 40 MG TABLET PO SCH (20:30)
[2017-12-08] MEDS: LEVOTHYROXINE 25 MCG TABLET PO SCH (06:12)
[2017-12-08] MEDS: FUROSEMIDE 40 MG TABLET PO SCH (08:53)
[2017-12-08] MEDS: ASPIRIN 81 MG CHEWABLE TABLET PO SCH (08:53)
[2017-12-08] MEDS: SPIRONOLACTONE 25 MG TABLET PO SCH (08:53)
[2017-12-08] MEDS: CARVEDILOL 12.5 MG TABLET PO SCH ×2 (08:53→17:48)
[2017-12-08] MEDS: FAMOTIDINE 20 MG TABLET PO SCH ×2 (11:16→20:30)
--- NOTE | 2017-12-08 11:53 | IRU Progress Note ---
- Subjective/Serverity of Illness Date: 12/08/17 Ms. Mckeon is settling into acute inpatient rehabilitation. She is cooperative with therapy. She denies any chest pain. She does have easy fatigability and a degree of dyspnea. Denies any cough. She denies any chest pains. We discussed her atrial fibrillation and anticoagulation. She reports that warfarin Coster to be very tired and fatigued in the past and that it has numerous side effects which she does not want to have. For this reason she is on the French supplement. She says it has worked well for her. I reminded her that she had a cardioembolic stroke. At this point she states that she does not wish to take anything additional for her anticoagulation. Denies any difficulty swallowing at present. Brief therapy update: For occupational therapy she is able to eat with modified independent functioning. Grooming is standby assist. Upper and lower body dressings are performed with minimal assistance. Toileting is with contact- guard assistance. Sit to stand transfers are with contact-guard assistance. For physical therapy, she has been ambulatory in the wheelchair but is starting to ambulate at the present time with a walker. Update on medical issues were actively monitoring and managing as follows: 1. 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 2. Atrial fibrillation with recent RVR: Patient remains in atrial fibrillation on physical examination. She declines other anticoagulation. She is at risk for further dysrhythmias as well as additional strokes. 3. CHF, acute on chronic, systolic (HFrEF) with EF estimated at 30-35%. The patient does have easy fatigability and a degree of dyspnea. However she states that overall she is tolerating therapy well. 4. Hypertension: Her blood pressures are reasonably well controlled at present. Exam Vital Signs: Temperature 97.2 F 12/08/17 10:05 Pulse Rate 87 12/08/17 10:05 Respiratory Rate 20 12/08/17 10:05 Blood Pressure 141/92 H 12/08/17 10:05 Pulse Oximetry 99 12/08/17 10:05 Height/Weight/BMI: Height 1.6 m Weight 64.1 kg Body Mass Index 24.4 - Constitutional Present: no acute distress, well nourished, well developed, average body habitus , cooperative - Routine HEENT Exam Head: Present: normocephalic Eye: Present: EOMI ENT: Present: mucous membranes moist, oropharynx clear - Routine Neck Exam Present: supple - Routine Respiratory Exam Present: dyspnea, CTA bilaterally. Absent: wheezes - Routine Cardiovascular Exam Present: S1, S2, murmur, irregularly irregular - Routine Abdominal Exam Present: soft, normoactive bowel sounds, non distended. Absent: tenderness - Routine Extremities Exam Present: no edema. Absent: cyanosis, clubbing - Routine Back/Spine/Pelvis Exam Back/Spine: Present: full ROM - Routine Skin Exam Present: dry, warm - Routine Neurological Exam Present: alert, oriented X3, CN II-XII intact - Routine Psychiatric Exam Present: normal affect, cooperative. Absent: good judgment Results IRU - Labs Labs: I have reviewed initial laboratory as well as other chart data. IRU A/P (1) Stroke due to embolism Qualifiers: Precerebral and cerebral artery: middle cerebral artery Laterality of affected vessel: left Qualified Code(s): I63.412 - Cerebral infarction due to embolism of left middle cerebral artery Problem details: Multifocal areas of acute infarct involving left cerebellum, right occipital lobe, and left frontal lobe. Current visit: No Status: Acute At the present time she seems neurologically stable. She is able to tolerate therapy. Please see above notes regarding her progress. (2) Acute congestive heart failure Qualifiers: Heart failure type: systolic Qualified Code(s): I50.21 - Acute systolic ( congestive) heart failure Current visit: No Status: Acute Recent diagnosis of reduced ejection fraction noted. She does have some dyspnea with activity. However she is tolerating therapy adequately. (3) Atrial fibrillation with rapid ventricular response Current visit: No Status: Chronic Patient remains in atrial fibrillation. She declines further anticoagulation at this time. We discussed this today with the patient. (4) Hypertension Qualifiers: Hypertension type: essential hypertension Qualified Code(s): I10 - Essential (primary) hypertension Current visit: No Status: Chronic (5) ASHD (arteriosclerotic heart disease) Current visit: Yes Status: Chronic Patient denies any chest pain at present. DVT Prophylaxis: SCD's Resuscitation Status: Full Code - Course Hospital Course: Obdulio Lyles MD: 12/08/17 11:55 Patient is cooperative with therapy. Does have some increased fatigability and dyspnea with activity. Declines further anticoagulation at present. Neurologically stable. - Interventions to Obtain Goals PT Treatment Plan: Balance/Proprioception, Functional Activities, Gait Training , Patient/Family Education, Therapeutic Exercise OT Treatment Plan: ADL (Basic Care), Balance Training, Pt./Family Education, Ther. Exercise for ADL Goals Progress/Modifications: Ms. Mckeon is tolerating therapy adequately. She has numerous medical issues that we are addressing. At the present time she does not have evidence of acute coronary disease nor grossly decompensated heart failure. However she does have easy fatigability. She is tolerating therapy well. She is able to ambulate with assistance and with a platform walker in view of her recent cardiac catheterization involving radial artery access bilaterally. Please note that the patient's individual plan of care was developed and documented today, requiring review of therapy notes, medical conditions and anticipated functional recovery. This required additional medical decision making with regard to interaction of the patient's medical issues with the anticipated functional recovery. Please see separate document
--- NOTE | 2017-12-08 12:00 | IRU Plan of Care ---
[facility] Overall Plan of Care - Date Date: 12/08/17 - Patient Impairments (1) Stroke due to embolism Qualifiers: Precerebral and cerebral artery: middle cerebral artery Laterality of affected vessel: left Qualified Code(s): I63.412 - Cerebral infarction due to embolism of left middle cerebral artery Code(s): I63.9 - Cerebral infarction, unspecified Status: Acute Classification: Present on IRF Admission, IRF Tx That Should Address Diagnosis, Diagnosis Requiring Medical Follow Up (2) ASHD (arteriosclerotic heart disease) Code(s): I25.10 - Atherosclerotic heart disease of [place] coronary artery without angina pectoris Status: Chronic Classification: Present on IRF Admission, Diagnosis Requiring Medical Follow Up (3) Acute congestive heart failure Qualifiers: Heart failure type: systolic Qualified Code(s): I50.21 - Acute systolic ( congestive) heart failure Code(s): I50.9 - Heart failure, unspecified Status: Acute Classification: Present on IRF Admission, IRF Tx That Should Address Diagnosis, Diagnosis Requiring Medical Follow Up (4) Atrial fibrillation with rapid ventricular response Code(s): I48.91 - Unspecified atrial fibrillation Status: Chronic Classification: Present on IRF Admission, IRF Tx That Should Address Diagnosis, Diagnosis Requiring Medical Follow Up - Relevant Changes Relevant Changes: No Reviewed: I have reviewed the patient's information and concur with the finding and results of the pre-admission screen. Certification: I certify the patient for rehabilitation. - Medical Prognosis Medical Prognosis: Good Vital Signs: Last Vital Signs Temp 97.2 F 12/08/17 10:05 Pulse 87 12/08/17 10:05 Resp 20 12/08/17 10:05 BP 141/92 H 12/08/17 10:05 Pulse Ox 99 12/08/17 10:05 - Anticipated Interventions Anticipated Interventions: The patient requires inpatient IRF care for PT and OT for residuals remaining from acute cardioembolic strokes resulting in muscular weakness and strength deficits. An individualized overall plan of care has been developed after careful review of the patient's preadmission screening, post admission physician evaluation and assessments of all therapy disciplines and/or other pertinent clinicians involved in treating the patient. This indicates medical necessity and rehabilitation necessity have been established through a thorough review of all available medical information. - Current Functional Status Failed Alternative Therapy: Arrived from Acute Care Patient Requires: The patient requires oversight by rehabilitation physician to manage their rehabilitation treatment plan and multidisciplinary approach to care that can only be provided in an IRF and requires a multidisciplinary approach to care, provided by professional PTs, OTs, STs, rehabilitation nurses, and may require STs, dieticians, and RTS. This is not available in lesser levels of care. Physical Therapy Minutes: 90 Occupational Therapy Minutes: 90 Therapy: The patient is to receive therapy at least 5 days a week. - Anticipated LOS/Outcomes Anticipated Functional Outcome: It is anticipated the patient will be over to return to her home with modified independent level of functioning for ambulation and ADLs. She may continue to require assistance with IADLs. It is anticipated that she will be able to transition to her home environment in a safe manner with controlled ventricular response from her atrial fibrillation. Anticipated Length of Stay (days): 10 Anticipated DC Destination: Home, Self Care, Home Health Service Home Safety Plan: The patient will be provided with the development of a Home Safety Plan for return to a home or home-like environment and and to ensure safety post discharge. - Plan to Avoid Complications Barriers to Attaining Goals: Weakness, Balance, Endurance, Medical Limitation Plan to Avoid Complications: The patient cannot receive this care in a lesser intensive setting such as Nursing Home or Outpatient Therapy due to the patient requiring the following : Patient requires close monitoring of her neurologic status in order to assess evidence of additional strokes. She requires close monitoring of her atrial fibrillation and cardiac status in view of her heart failure with reduced ejection fraction. In addition, because of her multiple medical problems she requires a multidisciplinary approach with OT and PT and medical supervision to ensure tolerance of these therapies.
--- NOTE | 2017-12-08 16:19 | Cardiology Progress Note ---
<Marivel Feliz L - Last Filed: 12/09/17 13:22> Exam Vital signs: Temperature 97.8 F 12/08/17 15:58 Pulse Rate 77 12/08/17 15:58 Respiratory Rate 18 12/08/17 15:58 Blood Pressure 155/75 H 12/08/17 15:58 Pulse Oximetry 98 12/08/17 14:02 Inpatient Medications: Generic Name Dose Route Start Last Admin Trade Name Freq PRN Reason Stop Dose Admin Acetaminophen 325 - 650 mg 12/06/17 17:14 Tylenol PO Q5H PRN Pain Hydrocodone Bitart/Acetaminophen 1 - 2 tab 12/06/17 17:14 [place] 5/325 PO Q5H PRN Pain Al Hydroxide/Mg Hydroxide 30 ml 12/06/17 17:14 Maalox Plus PO Q3H PRN Indigestion Aspirin 81 mg 12/07/17 09:00 12/08/17 08:53 Asa PO 81 mg DAILY LOPEZ Administration Atorvastatin Calcium 40 mg 12/06/17 21:00 12/07/17 20:30 Lipitor PO 40 mg HS LOPEZ Administration Atropine Sulfate 0.5 mg 12/06/17 17:14 Atropine IVP Q5M PRN Bradycardia Bisacodyl 5 mg 12/06/17 17:14 Dulcolax PO DAILY PRN Constipation Bisacodyl 10 mg 12/06/17 17:14 Dulcolax RECTALLY DAILY PRN Constipation Carvedilol 12.5 mg 12/07/17 18:18 12/08/17 08:53 Coreg PO 12.5 mg BIDWM LOPEZ Administration Famotidine 20 mg 12/06/17 21:00 12/08/17 11:16 Pepcid PO 20 mg BID LOPEZ Administration Furosemide 40 mg 12/07/17 09:00 12/08/17 08:53 Lasix PO 40 mg DAILY LOPEZ Administration Levothyroxine Sodium 25 mcg 12/07/17 06:30 12/08/17 06:12 Synthroid PO 25 mcg ACB LOPEZ Administration Lorazepam 0.5 mg 12/06/17 17:14 Ativan PO Q6H PRN Anxiety Magnesium Hydroxide 30 ml 12/06/17 17:14 Mom PO DAILY PRN Constipation Metoclopramide HCl 5 - 10 mg 12/06/17 17:14 Reglan IVP Q6H PRN Nausea &/or vomiting Nitroglycerin 0.4 mg 12/06/17 17:14 Nitrostat SL Q5M PRN Chest pain Sodium Chloride 10 ml 12/06/17 21:25 12/06/17 21:27 Iv Flush IV 10 ml PRN PRN Administration Flushing Spironolactone 25 mg 12/07/17 09:00 12/08/17 08:53 Aldactone PO 25 mg DAILY LOPEZ Administration Discontinued Medications Generic Name Dose Route Start Last Admin Trade Name Erick PRN Reason Stop Dose Admin Carvedilol 6.25 mg 12/06/17 17:30 12/07/17 12:17 Coreg PO 6.25 mg TIDWM LOPEZ Administration Carvedilol 12.5 mg 12/08/17 18:00 Coreg PO BIDWM LOPEZ Pharmacy Consult 1 each 12/06/17 17:14 Pharmacy Consult - Fall Risk XX 12/06/17 17:15 ONE TIME ONE - Constitutional no acute distress, well developed, cooperative - Routine HEENT Exam Head: Present: normocephalic, atraumatic Eye: Present: EOMI, PERRL ENT: Present: mucous membranes moist - Routine Neck Exam Present: supple, normal carotid upstroke. Absent: JVD, carotid bruit - Routine Respiratory Exam Present: CTA bilaterally. Absent: rhonchi, wheezes, crackles - Routine Cardiovascular Exam Present: irregularly irregular. Absent: JVD - Routine Abdominal Exam Present: soft, normoactive bowel sounds, non tender. Absent: rebound, guarding , organomegaly, mass - Routine Extremities Exam Present: no edema, pulses intact, normal capillary refill. Absent: cyanosis, clubbing - Routine Skin Exam Present: intact, dry (gauze removed - bilateral radial access sites no drainage) . Absent: cyanosis, erythema - Routine Neurological Exam Present: alert, oriented X3, CN II-XII intact, moving all extremities, vision grossly intact, hearing grossly intact, normal speech - Routine Psychiatric Exam Present: normal affect, cooperative Results 12/07/17 04:34 12/07/17 04:34 Intake and Output 12/08/17 12/08/17 12/08/17 06:59 14:59 22:59 Intake Total 120 / 120 Output Total 200 / 200 Balance -200 / -200 120 / 120 Intake: Oral 120 / 120 Output: Urine 200 / 200 Other: Urine Appearance Clear Urine Color Bright Yellow # Voids 1 Weight 64.1 kg - Imaging and Cardiology EKG results: image reviewed (atrial fibrillation in the 70s) Assessment and Plan - Assessment and Plan NSVT acute on chronic systolic CHF, EF 25% - per echo 09/2017 at [facility]. Pt unable to take Losartan due to anaphylaxis. Pt unable to take Lisinopril due to cough. Currently, euvolemic. elevated troponin-secondary to CHF, no NSTEMI atrial fibrillation - no anticoagulation due to patient's refusal (takes [place] natural herb), CHADSVASC of 7, HR controlled, cardioversion 2014 acute multiple embolic stroke most likely cardio embolic CAD - LAD stent [address] Milian, negative stress test 2014, heart cath by Dr. Javad Paris in Nov 2017 showed mid LAD lesion 50% and patent proximal LAD stent HTN pulmonary HTN valvular heart disease (moderate MR and AR) Continue to monitor orthostatic BP. Continue to monitor for symptoms with increase in Coreg. Pt was personally seen and interviewed by Dr. Javad Paris who agreed with the A& P. Hospital Course Summary Disclaimer: The visit summary below is not to be considered part of the above Progress Note. Hospital Course: Impression Debility, weakness Acute CVA Atrial fibulation Hypertensive heart disease Dizziness/vertigo CAD Hypothyroidism-TSH 7.97; 13 on 09/26/70 Valvular heart disease, MR, AI, pulmonary hypertension Plan Agree with admission to IRU under the care of Dr. Lyles for ongoing therapy and strengthening. Spinal services will see patient and medically manage existing comorbidities. Did speak with Dr. Paris, it is okay to remove bilateral wrists blends as it has been 24 hours post cardiac catheter Continue with aspirin and Lipitor given. Acute stroke. Will plan to start Eliquis 2.5 twice a day Mar 1 which is 2 wks following her stroke. Monitor blood pressure, continue on Coreg and Aldactone Encourage work with PT and OT for ongoing strengthening Will discuss further orders and plan of care with attending, Dr. James At time of discharge medical care will return to primary care provider, ? Dr Sung <Ag Paris - Last Filed: 12/19/17 20:52> Subjective Interval history: pt has no c/o of cp dyspnea palpitations or dizziness . continued to work with physical therapy . Exam Vital signs: Temperature 96.2 F L 12/16/17 07:33 Pulse Rate 99 12/16/17 08:00 Respiratory Rate 16 12/16/17 07:33 Blood Pressure 141/84 H 12/16/17 07:35 Pulse Oximetry 94 12/16/17 07:33 Inpatient Medications: Discontinued Medications Generic Name Dose Route Start Last Admin Trade Name Freq PRN Reason Stop Dose Admin Acetaminophen 325 - 650 mg 12/06/17 17:14 Tylenol PO Q5H PRN Pain Hydrocodone Bitart/Acetaminophen 1 - 2 tab 12/06/17 17:14 [place] 5/325 PO Q5H PRN Pain Al Hydroxide/Mg Hydroxide 30 ml 12/06/17 17:14 Maalox Plus PO Q3H PRN Indigestion Aspirin 81 mg 12/07/17 09:00 12/16/17 09:09 Asa PO 81 mg DAILY LOPEZ Administration Atorvastatin Calcium 40 mg 12/06/17 21:00 12/15/17 21:45 Lipitor PO 40 mg HS LOPEZ Administration Atropine Sulfate 0.5 mg 12/06/17 17:14 Atropine IVP Q5M PRN Bradycardia Bisacodyl 5 mg 12/06/17 17:14 Dulcolax PO DAILY PRN Constipation Bisacodyl 10 mg 12/06/17 17:14 Dulcolax RECTALLY DAILY PRN Constipation Carvedilol 6.25 mg 12/06/17 17:30 12/07/17 12:17 Coreg PO 6.25 mg TIDWM LOPEZ Administration Carvedilol 12.5 mg 12/08/17 18:00 Coreg PO BIDWM LOPEZ Carvedilol 12.5 mg 12/07/17 18:18 12/16/17 09:09 Coreg PO 12.5 mg BIDWM LOPEZ Administration Famotidine 20 mg 12/06/17 21:00 12/12/17 08:28 Pepcid PO 20 mg BID LOPEZ Administration Famotidine 20 mg 12/13/17 09:00 12/16/17 09:09 Pepcid PO 20 mg DAILY LOPEZ Administration Furosemide 40 mg 12/07/17 09:00 12/16/17 09:09 Lasix PO 40 mg DAILY LOPEZ Administration Levothyroxine Sodium 25 mcg 12/07/17 06:30 12/16/17 05:50 Synthroid PO 25 mcg ACB LOPEZ Administration Lorazepam 0.5 mg 12/06/17 17:14 Ativan PO Q6H PRN Anxiety Magnesium Hydroxide 30 ml 12/06/17 17:14 Mom PO DAILY PRN Constipation Metoclopramide HCl 5 - 10 mg 12/06/17 17:14 Reglan IVP Q6H PRN Nausea &/or vomiting Nitroglycerin 0.4 mg 12/06/17 17:14 Nitrostat SL Q5M PRN Chest pain Pharmacy Consult 1 each 12/06/17 17:14 Pharmacy Consult - Fall Risk XX 12/06/17 17:15 ONE TIME ONE Pharmacy Consult 1 each 12/16/17 10:43 Pharmacy Consult - Fall Risk XX 12/16/17 10:44 ONE TIME ONE Sodium Chloride 10 ml 12/06/17 21:25 12/15/17 17:37 Iv Flush IV 10 ml PRN PRN Administration Flushing Spironolactone 25 mg 12/07/17 09:00 12/16/17 09:10 Aldactone PO 25 mg DAILY LOPEZ Administration - Routine Cardiovascular Exam Present: no murmur Results 12/07/17 04:34 12/07/17 04:34 Assessment and Plan - Assessment and Plan Pt was personally seen , examined and interviewed by Dr. Javad Paris who agreed with the above findings and developed A&P. Hospital Course Summary Disclaimer: The visit summary below is not to be considered part of the above Progress Note.
[2017-12-08] MEDS ORDERED: CARVEDILOL 12.5 MG TABLET PO SCH (18:00)
[2017-12-08] MEDS: ATORVASTATIN 40 MG TABLET PO SCH (20:31)
[2017-12-08] MEDS: SALINE FLUSH 10ml SYRINGE IV PRN (21:20)
[2017-12-09] MEDS: LEVOTHYROXINE 25 MCG TABLET PO SCH (05:09)
[2017-12-09] MEDS: FUROSEMIDE 40 MG TABLET PO SCH (08:11)
[2017-12-09] MEDS: FAMOTIDINE 20 MG TABLET PO SCH ×2 (08:11→20:39)
[2017-12-09] MEDS: CARVEDILOL 12.5 MG TABLET PO SCH ×2 (08:11→18:08)
[2017-12-09] MEDS: SPIRONOLACTONE 25 MG TABLET PO SCH (08:11)
[2017-12-09] MEDS: ASPIRIN 81 MG CHEWABLE TABLET PO SCH (08:11)
--- NOTE | 2017-12-09 09:58 | Progress Note ---
- Date 12/09/17 Subjective: Deyanira was resting in her room. Other than feeling cold she denies headache, chest pain, palpitations, shortness of breath, abdominal pain, appetite changes , n/v, or unilateral weakness. She reportedly had an asymptomatic 15-beat run of VT and Dr. Paris was notified. Objective Vital signs: Temperature 97.5 F 12/09/17 07:35 Pulse Rate 100 12/09/17 07:41 Respiratory Rate 18 12/09/17 07:35 Blood Pressure 139/89 12/09/17 07:41 Pulse Oximetry 92 12/09/17 07:41 Height/Weight/BMI: Height 1.6 m Weight 64.1 kg Body Mass Index 24.4 - Constitutional Present: no acute distress, well nourished, well developed, thin - Routine HEENT Exam Head: Present: normocephalic Eye: Present: PERRL. Absent: conjunctival icterus, scleral injection ENT: Present: oropharynx clear - Routine Respiratory Exam Present: CTA bilaterally - Routine Cardiovascular Exam Present: murmur, irregularly irregular - Routine Abdominal Exam Present: soft, normoactive bowel sounds, non distended, non tender - Routine Extremities Exam Present: no edema, pulses intact - Routine Skin Exam Present: intact, dry, warm - Routine Neurological Exam Present: alert, oriented X3, CN II-XII intact Results - Labs CBC & Chem 7: 12/07/17 04:34 12/07/17 04:34 Assessment and Plan (1) Stroke due to embolism Problem details: Multifocal areas of acute infarct involving left cerebellum, right occipital lobe, and left frontal lobe. Current visit: No Status: Acute Assessment and Plan: Impression Debility, weakness Acute CVA acute on chronic systolic CHF, EF 25% - per echo 09/2017 at [facility]. NSVT Atrial fibulation Hypertensive heart disease Dizziness/vertigo CAD Hypothyroidism-TSH 7.97; 13 on 09/26/70 Valvular heart disease, MR, AI, pulmonary hypertension Plan NSVT - Dr. Paris already notified Continue with ASA, lipitor, carvedilol, lasix, spironolactone. Eliquis 2.5 mg BID to start on 12/15/17; will plan on stopping ASA at that time per discussion with Dr. Paris. Labs on admission were stable. Resuscitation Status: Full Code - Physician Narrative Narrative: Date: 12/09/17 Time: 0954 Hospital Course Summary Disclaimer: The visit summary below is not to be considered part of the above Progress Note. Hospital Course: Impression Debility, weakness Acute CVA Atrial fibulation Hypertensive heart disease Dizziness/vertigo CAD Hypothyroidism-TSH 7.97; 13 on 09/26/70 Valvular heart disease, MR, AI, pulmonary hypertension Plan Agree with admission to IRU under the care of Dr. Lyles for ongoing therapy and strengthening. Did speak with Dr. Paris, it is okay to remove bilateral wrists blends as it has been 24 hours post cardiac cath Continue with aspirin and Lipitor. Will plan to start Eliquis 2.5 twice a day Dec 1 which is 2 wks following her stroke. Monitor blood pressure, continue on Coreg and Aldactone Encourage work with PT and OT for ongoing strengthening At time of discharge medical care will return to primary care provider, ? Dr Sung 12/09 NSVT - Dr. Paris already notified Continue with ASA, lipitor, carvedilol, lasix, spironolactone. Eliquis 2.5 mg BID to start on 12/15/17; will plan on stopping ASA at that time per discussion with Dr. Paris.
--- NOTE | 2017-12-09 11:00 | IRU Progress Note ---
- Subjective/Serverity of Illness Date: 12/09/17 Ms. Mckeon had a 15 beat run of ventricular tachycardia which was totally asymptomatic. I assessed her yesterday at that time and she denied any symptoms of palpitations, lightheadedness etc. She was in bed at the time watching TV with her . Dr. Paris was contacted and recommended observation for now. He subsequently did see her as well. No recurrence has been noted. She remains in atrial fibrillation and continues to decline further anticoagulation at present. Brief therapy update: She is performing upper and lower body dressings with minimum assistance. Toilet transfers are with contact-guard assistance. For physical therapy she is transferring in general with contact-guard assistance ( was minimum assistance). She is ambulate in 168 feet with a platform walker with contact-guard assistance. Medically she is stable. Please see above discussion regarding ventricular tachycardia. Her heart failure appears to be reasonably well compensated at present although she does have some dyspnea with activity. Denies any cardiac form of chest discomfort. Exam Vital Signs: Temperature 97.5 F 12/09/17 07:35 Pulse Rate 100 12/09/17 07:41 Respiratory Rate 18 12/09/17 07:35 Blood Pressure 139/89 12/09/17 07:41 Pulse Oximetry 92 12/09/17 07:41 Height/Weight/BMI: Height 1.6 m Weight 64.1 kg Body Mass Index 24.4 - Constitutional Present: no acute distress, well nourished, well developed, cooperative - Routine HEENT Exam Head: Present: normocephalic Eye: Present: EOMI ENT: Present: mucous membranes moist, oropharynx clear - Routine Neck Exam Present: supple - Routine Respiratory Exam Present: CTA bilaterally. Absent: wheezes - Routine Cardiovascular Exam Present: S1, S2, irregularly irregular. Absent: murmur - Routine Abdominal Exam Present: soft, normoactive bowel sounds, non distended. Absent: tenderness - Routine Extremities Exam Present: no edema, pulses intact - Routine Skin Exam Present: dry, warm - Routine Neurological Exam Present: alert, oriented X3, CN II-XII intact. Absent: hearing grossly intact - Routine Psychiatric Exam Present: normal affect Results IRU - Labs Labs: Have reviewed labs and other chart information. IRU A/P (1) Stroke due to embolism Qualifiers: Precerebral and cerebral artery: middle cerebral artery Laterality of affected vessel: left Qualified Code(s): I63.412 - Cerebral infarction due to embolism of left middle cerebral artery Problem details: Multifocal areas of acute infarct involving left cerebellum, right occipital lobe, and left frontal lobe. Current visit: No Status: Acute Patient is neurologically stable at the present time. She declines other anticoagulation at present and thus is at risk for further strokes. She denies any headaches or visual changes. She is cooperative with therapy and making progress. (2) ASHD (arteriosclerotic heart disease) Current visit: Yes Status: Chronic Denies any angina at present. (3) Acute congestive heart failure Qualifiers: Heart failure type: systolic Qualified Code(s): I50.21 - Acute systolic ( congestive) heart failure Current visit: No Status: Acute Her heart failure appears to be reasonably well compensated at present. Ventricular tachycardia noted and Dr. Paris is aware. It was asymptomatic and nonsustained. (4) Atrial fibrillation with rapid ventricular response Current visit: No Status: Chronic DVT Prophylaxis: SCD's Resuscitation Status: Full Code - Course Hospital Course: Obdulio Lyles MD: 12/08/17 11:55 Patient is cooperative with therapy. Does have some increased fatigability and dyspnea with activity. Declines further anticoagulation at present. Neurologically stable. 12/09/17 11:02 Progressing with therapy as noted. Does have dyspnea with activity. 15 beat run of ventricular tachycardia which was asymptomatic yesterday. Vital signs stable otherwise. - Interventions to Obtain Goals PT Treatment Plan: Balance/Proprioception, Functional Activities, Gait Training , Patient/Family Education, Therapeutic Exercise OT Treatment Plan: ADL (Basic Care), Balance Training, Pt./Family Education, Ther. Exercise for ADL Goals Progress/Modifications: Time spent with patient and on floor reviewing data and documentin min Medical decision-making: I have reviewed her telemetry strips. She remains in atrial fibrillation. Appeared to have about a 15 beat run of ventricular tachycardia yesterday which was asymptomatic. I checked the patient at that time and she had no symptoms and her vital signs were stable. Blood pressure was good. Dr. Paris was contacted also saw the patient subsequently. Recommends monitoring. Neurologically, the patient remains stable without new neurologic events. She is cooperative with therapy and making progress. She is able to continue therapy at this time. I have reassessed her cardiac and pulmonary status and she is stable.
--- NOTE | 2017-12-09 11:24 | Cardiology Progress Note ---
<Marivel Feliz L - Last Filed: 12/09/17 13:30> Exam Vital signs: Temperature 97.5 F 12/09/17 07:35 Pulse Rate 100 12/09/17 07:41 Respiratory Rate 18 12/09/17 07:35 Blood Pressure 139/89 12/09/17 07:41 Pulse Oximetry 92 12/09/17 07:41 Inpatient Medications: Generic Name Dose Route Start Last Admin Trade Name Freq PRN Reason Stop Dose Admin Acetaminophen 325 - 650 mg 12/06/17 17:14 Tylenol PO Q5H PRN Pain Hydrocodone Bitart/Acetaminophen 1 - 2 tab 12/06/17 17:14 Roe 5/325 PO Q5H PRN Pain Al Hydroxide/Mg Hydroxide 30 ml 12/06/17 17:14 Maalox Plus PO Q3H PRN Indigestion Aspirin 81 mg 12/07/17 09:00 12/09/17 08:11 Asa PO 81 mg DAILY LOPEZ Administration Atorvastatin Calcium 40 mg 12/06/17 21:00 12/08/17 20:31 Lipitor PO 40 mg HS LOPEZ Administration Atropine Sulfate 0.5 mg 12/06/17 17:14 Atropine IVP Q5M PRN Bradycardia Bisacodyl 5 mg 12/06/17 17:14 Dulcolax PO DAILY PRN Constipation Bisacodyl 10 mg 12/06/17 17:14 Dulcolax RECTALLY DAILY PRN Constipation Carvedilol 12.5 mg 12/07/17 18:18 12/09/17 08:11 Coreg PO 12.5 mg BIDWM LOPEZ Administration Famotidine 20 mg 12/06/17 21:00 12/09/17 08:11 Pepcid PO 20 mg BID LOPEZ Administration Furosemide 40 mg 12/07/17 09:00 12/09/17 08:11 Lasix PO 40 mg DAILY LOPEZ Administration Levothyroxine Sodium 25 mcg 12/07/17 06:30 12/09/17 05:09 Synthroid PO 25 mcg ACB LOPEZ Administration Lorazepam 0.5 mg 12/06/17 17:14 Ativan PO Q6H PRN Anxiety Magnesium Hydroxide 30 ml 12/06/17 17:14 Mom PO DAILY PRN Constipation Metoclopramide HCl 5 - 10 mg 12/06/17 17:14 Reglan IVP Q6H PRN Nausea &/or vomiting Nitroglycerin 0.4 mg 12/06/17 17:14 Nitrostat SL Q5M PRN Chest pain Sodium Chloride 10 ml 12/06/17 21:25 12/08/17 21:20 Iv Flush IV 10 ml PRN PRN Administration Flushing Spironolactone 25 mg 12/07/17 09:00 12/09/17 08:11 Aldactone PO 25 mg DAILY LOPEZ Administration Discontinued Medications Generic Name Dose Route Start Last Admin Trade Name Erick PRN Reason Stop Dose Admin Carvedilol 6.25 mg 12/06/17 17:30 12/07/17 12:17 Coreg PO 6.25 mg TIDWM LOPEZ Administration Carvedilol 12.5 mg 12/08/17 18:00 Coreg PO BIDWM LOPEZ Pharmacy Consult 1 each 12/06/17 17:14 Pharmacy Consult - Fall Risk XX 12/06/17 17:15 ONE TIME ONE - Constitutional no acute distress, well developed, cooperative - Routine HEENT Exam Head: Present: normocephalic, atraumatic Eye: Present: EOMI, PERRL ENT: Present: mucous membranes moist - Routine Neck Exam Present: supple, full ROM, normal carotid upstroke. Absent: JVD, carotid bruit - Routine Respiratory Exam Present: CTA bilaterally. Absent: rhonchi, wheezes, crackles - Routine Cardiovascular Exam Present: irregularly irregular - Routine Abdominal Exam Present: soft, normoactive bowel sounds, non distended, non tender. Absent: organomegaly, mass - Routine Extremities Exam Present: pulses intact, normal capillary refill. Absent: cyanosis, clubbing, edema - Routine Skin Exam Present: intact, dry. Absent: cyanosis, erythema - Routine Neurological Exam Present: alert, oriented X3, CN II-XII intact, moving all extremities, vision grossly intact, hearing grossly intact, normal speech - Routine Psychiatric Exam Present: normal affect, cooperative Results 12/07/17 04:34 12/07/17 04:34 Intake and Output 12/08/17 12/09/17 12/09/17 22:59 06:59 14:59 Intake Total 360 / 360 120 / 120 Output Total 450 / 450 450 / 450 100 / 100 Balance -90 / -90 -450 / -450 Intake: Oral 360 / 360 120 / 120 Output: Urine 450 / 450 450 / 450 Urine Amount (Catheter) 100 / 100 Other: Urine Appearance Clear Clear Cloudy Urine Color Yellow Dark Yellow Straw Urine Odor Strong Normal Stool Color Brown Stool Consistency Formed Size of Bowel Movement Moderate # Voids 300 - Imaging and Cardiology EKG results: image reviewed (atrial fibrillation in the 70s) Assessment and Plan - Assessment and Plan NSVT acute on chronic systolic CHF, EF 25% - per echo 09/2017 at [facility]. Pt unable to take Losartan due to anaphylaxis. Pt unable to take Lisinopril due to cough. Currently, euvolemic. 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 Milian, negative stress test 2014, heart cath by Dr. Javad Paris in Nov 2017 showed mid LAD lesion 50% and patent proximal LAD stent HTN pulmonary HTN valvular heart disease (moderate MR and AR) Will sign off. Please call if need anything else. F/u with [employer] [facility], Dr. Syed, after discharge from rehab. Pt was personally seen and interviewed by Dr. Javad Paris who agreed with the A& P. Hospital Course Summary Disclaimer: The visit summary below is not to be considered part of the above Progress Note. Hospital Course: Impression Debility, weakness Acute CVA Atrial fibulation Hypertensive heart disease Dizziness/vertigo CAD Hypothyroidism-TSH 7.97; 13 on 09/26/70 Valvular heart disease, MR, AI, pulmonary hypertension Plan Agree with admission to IRU under the care of Dr. Lyles for ongoing therapy and strengthening. Did speak with Dr. Paris, it is okay to remove bilateral wrists blends as it has been 24 hours post cardiac cath Continue with aspirin and Lipitor. Will plan to start Eliquis 2.5 twice a day Dec 1 which is 2 wks following her stroke. Monitor blood pressure, continue on Coreg and Aldactone Encourage work with PT and OT for ongoing strengthening At time of discharge medical care will return to primary care provider, ? Dr Sung 12/09 NSVT - Dr. Paris already notified Continue with ASA, lipitor, carvedilol, lasix, spironolactone. Eliquis 2.5 mg BID to start on 12/15/17; will plan on stopping ASA at that time per discussion with Dr. Paris. <Ag Paris - Last Filed: 12/19/17 21:03> Subjective Interval history: pt has no c/o of cp ,palpitations ,dizziness or dyspnea. Exam Vital signs: Temperature 96.2 F L 12/16/17 07:33 Pulse Rate 99 12/16/17 08:00 Respiratory Rate 16 12/16/17 07:33 Blood Pressure 141/84 H 12/16/17 07:35 Pulse Oximetry 94 12/16/17 07:33 Inpatient Medications: Discontinued Medications Generic Name Dose Route Start Last Admin Trade Name Freq PRN Reason Stop Dose Admin Acetaminophen 325 - 650 mg 12/06/17 17:14 Tylenol PO Q5H PRN Pain Hydrocodone Bitart/Acetaminophen 1 - 2 tab 12/06/17 17:14 Roe 5/325 PO Q5H PRN Pain Al Hydroxide/Mg Hydroxide 30 ml 12/06/17 17:14 Maalox Plus PO Q3H PRN Indigestion Aspirin 81 mg 12/07/17 09:00 12/16/17 09:09 Asa PO 81 mg DAILY LOPEZ Administration Atorvastatin Calcium 40 mg 12/06/17 21:00 12/15/17 21:45 Lipitor PO 40 mg HS LOPEZ Administration Atropine Sulfate 0.5 mg 12/06/17 17:14 Atropine IVP Q5M PRN Bradycardia Bisacodyl 5 mg 12/06/17 17:14 Dulcolax PO DAILY PRN Constipation Bisacodyl 10 mg 12/06/17 17:14 Dulcolax RECTALLY DAILY PRN Constipation Carvedilol 6.25 mg 12/06/17 17:30 12/07/17 12:17 Coreg PO 6.25 mg TIDWM LOPEZ Administration Carvedilol 12.5 mg 12/08/17 18:00 Coreg PO BIDWM LOPEZ Carvedilol 12.5 mg 12/07/17 18:18 12/16/17 09:09 Coreg PO 12.5 mg BIDWM LOPEZ Administration Famotidine 20 mg 12/06/17 21:00 12/12/17 08:28 Pepcid PO 20 mg BID LOPEZ Administration Famotidine 20 mg 12/13/17 09:00 12/16/17 09:09 Pepcid PO 20 mg DAILY LOPEZ Administration Furosemide 40 mg 12/07/17 09:00 12/16/17 09:09 Lasix PO 40 mg DAILY LOPEZ Administration Levothyroxine Sodium 25 mcg 12/07/17 06:30 12/16/17 05:50 Synthroid PO 25 mcg ACB LOPEZ Administration Lorazepam 0.5 mg 12/06/17 17:14 Ativan PO Q6H PRN Anxiety Magnesium Hydroxide 30 ml 12/06/17 17:14 Mom PO DAILY PRN Constipation Metoclopramide HCl 5 - 10 mg 12/06/17 17:14 Reglan IVP Q6H PRN Nausea &/or vomiting Nitroglycerin 0.4 mg 12/06/17 17:14 Nitrostat SL Q5M PRN Chest pain Pharmacy Consult 1 each 12/06/17 17:14 Pharmacy Consult - Fall Risk XX 12/06/17 17:15 ONE TIME ONE Pharmacy Consult 1 each 12/16/17 10:43 Pharmacy Consult - Fall Risk XX 12/16/17 10:44 ONE TIME ONE Sodium Chloride 10 ml 12/06/17 21:25 12/15/17 17:37 Iv Flush IV 10 ml PRN PRN Administration Flushing Spironolactone 25 mg 12/07/17 09:00 12/16/17 09:10 Aldactone PO 25 mg DAILY LOPEZ Administration Results 12/07/17 04:34 12/07/17 04:34 Assessment and Plan - Assessment and Plan I personally interviewed and examined pt and agree with the above Hospital Course Summary Disclaimer: The visit summary below is not to be considered part of the above Progress Note.
[2017-12-09] MEDS: ATORVASTATIN 40 MG TABLET PO SCH (20:39)
[2017-12-10] MEDS: LEVOTHYROXINE 25 MCG TABLET PO SCH ×2 (02:55→06:46)
[2017-12-10] MEDS: FAMOTIDINE 20 MG TABLET PO SCH ×2 (08:36→20:33)
[2017-12-10] MEDS: CARVEDILOL 12.5 MG TABLET PO SCH ×2 (08:36→17:20)
[2017-12-10] MEDS: ASPIRIN 81 MG CHEWABLE TABLET PO SCH (08:36)
[2017-12-10] MEDS: SPIRONOLACTONE 25 MG TABLET PO SCH (08:36)
[2017-12-10] MEDS: FUROSEMIDE 40 MG TABLET PO SCH (08:36)
[2017-12-10] MEDS: SALINE FLUSH 10ml SYRINGE IV PRN (17:20)
[2017-12-10] MEDS: ATORVASTATIN 40 MG TABLET PO SCH (20:33)
[2017-12-11] MEDS: LEVOTHYROXINE 25 MCG TABLET PO SCH (05:31)
[2017-12-11] MEDS: SALINE FLUSH 10ml SYRINGE IV PRN ×3 (08:46→20:46)
[2017-12-11] MEDS: SPIRONOLACTONE 25 MG TABLET PO SCH (08:46)
[2017-12-11] MEDS: ASPIRIN 81 MG CHEWABLE TABLET PO SCH (08:46)
[2017-12-11] MEDS: FUROSEMIDE 40 MG TABLET PO SCH (08:46)
[2017-12-11] MEDS: FAMOTIDINE 20 MG TABLET PO SCH ×2 (08:46→20:46)
[2017-12-11] MEDS: CARVEDILOL 12.5 MG TABLET PO SCH ×2 (08:46→17:15)
[2017-12-11] MEDS: ATORVASTATIN 40 MG TABLET PO SCH (20:46)
[2017-12-12] MEDS: LEVOTHYROXINE 25 MCG TABLET PO SCH (05:58)
[2017-12-12] MEDS: SPIRONOLACTONE 25 MG TABLET PO SCH (08:27)
[2017-12-12] MEDS: CARVEDILOL 12.5 MG TABLET PO SCH ×2 (08:27→17:38)
[2017-12-12] MEDS: ASPIRIN 81 MG CHEWABLE TABLET PO SCH (08:28)
[2017-12-12] MEDS: SALINE FLUSH 10ml SYRINGE IV PRN ×2 (08:28→17:37)
[2017-12-12] MEDS: FAMOTIDINE 20 MG TABLET PO SCH (08:28)
[2017-12-12] MEDS: FUROSEMIDE 40 MG TABLET PO SCH (08:28)
--- NOTE | 2017-12-12 12:08 | IRU Progress Note ---
- Subjective/Serverity of Illness Date: 12/12/17 Ms. Mckeon was evaluated in her room on inpatient rehabilitation. She wondered if she could get her neck "fixed" by a chiropractor while here. I recommended that she wait until she gets out that it would be up to her. She does have multiple medical issues. She was seen by cardiology and they have signed off and recommend follow-up with her own provider contracting consultant. She continues to decline anticoagulation despite her strokes and atrial fibrillation. She does have some dyspnea with activity although primarily it is more easy fatigability than true dyspnea apparently. She denies any chest pains. Brief therapy update: For occupational therapy, she is standby assist for bathing and upper and lower body dressing. For physical therapy, bed/chair/ wheelchair transfers have improved from contact-guard to standby assist. She is able to ambulate 112 feet with a front-wheeled walker. This has improved from maximum assistance to standby assist. Update on medical issues we are actively monitoring and/or managing as follows: 1. Acute CVA's in multiple locations (cardioembolic source): She seems to be neurologically stable at present but is at risk for additional strokes in view of her lack of anticoagulation. She has declined to take additional medications in this regard. 2. Atrial fibrillation with recent RVR: She remains in atrial fibrillation. She has had some nonsustained ventricular tachycardia which is been asymptomatic. 3. CHF, acute on chronic, systolic (HFrEF) with EF estimated at 30-35%. Does report that she does have significant fatigue with therapy. This was confirmed by the therapists as well. Despite that, she is able to tolerate current therapy and has made some progress. 4. Hypertension: Overall blood pressures are controlled. She has had some hypotension. Exam Vital Signs: Temperature 98.2 F 12/12/17 07:31 Pulse Rate 76 12/12/17 07:31 Respiratory Rate 18 12/12/17 07:31 Blood Pressure 136/81 12/12/17 07:31 Pulse Oximetry 97 12/12/17 07:31 Height/Weight/BMI: Height 1.6 m Weight 60.4 kg Body Mass Index 24.4 - Constitutional Present: well nourished, well developed, thin, cooperative - Routine HEENT Exam Eye: Present: EOMI ENT: Present: mucous membranes moist, dentition normal - Routine Neck Exam Present: supple - Routine Respiratory Exam Present: CTA bilaterally. Absent: wheezes - Routine Cardiovascular Exam Present: S1, S2, murmur, irregularly irregular - Routine Abdominal Exam Present: soft, normoactive bowel sounds, non distended. Absent: tenderness - Routine Extremities Exam Present: no edema - Routine Skin Exam Present: dry, warm - Routine Neurological Exam Present: alert, oriented X3, CN II-XII intact - Routine Psychiatric Exam Present: normal affect, normal thought process. Absent: good insight, good judgment IRU A/P (1) Stroke due to embolism Qualifiers: Precerebral and cerebral artery: middle cerebral artery Laterality of affected vessel: left Qualified Code(s): I63.412 - Cerebral infarction due to embolism of left middle cerebral artery Problem details: Multifocal areas of acute infarct involving left cerebellum, right occipital lobe, and left frontal lobe. Current visit: No Status: Acute Progressing slowly with therapy and neurologically stable at present. (2) ASHD (arteriosclerotic heart disease) Current visit: Yes Status: Chronic (3) Acute congestive heart failure Qualifiers: Heart failure type: systolic Qualified Code(s): I50.21 - Acute systolic ( congestive) heart failure Current visit: No Status: Acute She does have significant evidence of easy fatigability with activity. Denies overt dyspnea at present. Denies chest pains. (4) Atrial fibrillation with rapid ventricular response Current visit: No Status: Chronic DVT Prophylaxis: SCD's Resuscitation Status: Full Code - Course Hospital Course: Obdulio Lyles MD: 12/08/17 11:55 Patient is cooperative with therapy. Does have some increased fatigability and dyspnea with activity. Declines further anticoagulation at present. Neurologically stable. 12/09/17 11:02 Progressing with therapy as noted. Does have dyspnea with activity. 15 beat run of ventricular tachycardia which was asymptomatic yesterday. Vital signs stable otherwise. 12/12/17 12:09 Continues to have significant fatigability with activity. No chest pain. Remains in atrial fibrillation. Declines anticoagulation. - Interventions to Obtain Goals PT Treatment Plan: Balance/Proprioception, Functional Activities, Gait Training , Patient/Family Education, Therapeutic Exercise OT Treatment Plan: ADL (Basic Care), Balance Training, Pt./Family Education, Ther. Exercise for ADL Goals Progress/Modifications: Patient was seen by cardiology and they have now signed off with recommendation to follow-up with her own provider contracting consultant. Remains in atrial fibrillation. She continues to decline significant anticoagulation. She prefers the Greek extract. Neurologically she remains intact. She does have some easy fatigability no doubt related to her heart failure. She is at risk for further dysrhythmias. We will continue working with the patient.
--- NOTE | 2017-12-12 14:34 | Pharmacy Consult- Renal Dosing ---
Rhonda Nunez-Renal Dosing - Laboratory Information 12/07/17 04:34 BUN 17.0 Creatinine 0.9 - Consult Information renal dosing adjustment: famotidine SCr= 0.9 mg/dL est CrCl ~33 ml/min Dose adjusted to Famotidine 20 mg po daily based on current renal function. Pharmacy will monitor and adjust as needed. Thank you, Lori Huffman [facility]
[2017-12-12] MEDS: ATORVASTATIN 40 MG TABLET PO SCH (20:18)
[2017-12-13] MEDS: LEVOTHYROXINE 25 MCG TABLET PO SCH (06:37)
[2017-12-13] MEDS: FUROSEMIDE 40 MG TABLET PO SCH (08:32)
[2017-12-13] MEDS: FAMOTIDINE 20 MG TABLET PO SCH (08:32)
[2017-12-13] MEDS: SPIRONOLACTONE 25 MG TABLET PO SCH (08:32)
[2017-12-13] MEDS: ASPIRIN 81 MG CHEWABLE TABLET PO SCH (08:32)
[2017-12-13] MEDS: CARVEDILOL 12.5 MG TABLET PO SCH ×2 (08:33→17:47)
[2017-12-13] MEDS: SALINE FLUSH 10ml SYRINGE IV PRN ×2 (08:33→20:29)
--- NOTE | 2017-12-13 11:31 | IRU Progress Note ---
- Subjective/Serverity of Illness Date: 12/13/17 Ms. Mckeon was interviewed and examined in her room. I also observed her doing some tub transfers and ambulating with a front-wheeled walker. Seems to be reasonably stable on her feet. She denies shortness of breath. Therapist said she has some fatigability but no dyspnea. Patient confirms this. She denies any chest pain. She denies any lightheadedness. If she gets adequate rest breaks she seems to do fairly well. Tub transfers were with contact-guard assist to supervision. Patient states that she feels like she is stable to go home. We have a team meeting today and we will assess this. No change in neurologic status at present. Continues to decline anticoagulants. Cardiology has suggested she be made a no CODE BLUE. However I did discuss with her this issue at the time of admission. I discussed CPR etc. She states that she wants full intervention including CPR in the event of an arrest. Exam Vital Signs: Temperature 96.6 F L 12/13/17 07:15 Pulse Rate 100 12/13/17 08:00 Respiratory Rate 18 12/13/17 07:15 Blood Pressure 132/86 12/13/17 07:17 Pulse Oximetry 96 12/13/17 07:17 Height/Weight/BMI: Height 1.6 m Weight 61.3 kg Body Mass Index 24.4 - Constitutional Present: mild distress (appears to be fatigued with activity.), well nourished, well developed, thin, cooperative - Routine HEENT Exam Eye: Present: EOMI ENT: Present: mucous membranes moist, oropharynx clear - Routine Neck Exam Present: supple - Routine Respiratory Exam Present: CTA bilaterally. Absent: wheezes - Routine Cardiovascular Exam Present: S1, S2, murmur (faint systolic murmur.), irregularly irregular - Routine Abdominal Exam Present: soft, normoactive bowel sounds, non distended. Absent: tenderness - Routine Extremities Exam Present: no edema - Routine Skin Exam Present: dry, warm - Routine Neurological Exam Present: alert, oriented X3, CN II-XII intact Mild right facial droop. Speech is fluent. - Routine Psychiatric Exam Present: normal affect, cooperative. Absent: good insight, good judgment IRU A/P (1) Stroke due to embolism Qualifiers: Precerebral and cerebral artery: middle cerebral artery Laterality of affected vessel: left Qualified Code(s): I63.412 - Cerebral infarction due to embolism of left middle cerebral artery Problem details: Multifocal areas of acute infarct involving left cerebellum, right occipital lobe, and left frontal lobe. Current visit: No Status: Acute Patient is neurologically stable at the present time but at risk for additional neurologic events in view of absence of anticoagulation. She has made functional gains. Team meeting today to further discuss from a multidisciplinary standpoint. (2) ASHD (arteriosclerotic heart disease) Current visit: Yes Status: Chronic (3) Acute congestive heart failure Qualifiers: Heart failure type: systolic Qualified Code(s): I50.21 - Acute systolic ( congestive) heart failure Current visit: No Status: Acute Patient appears to be relatively compensated at the present time. (4) Atrial fibrillation with rapid ventricular response Current visit: No Status: Chronic DVT Prophylaxis: SCD's Resuscitation Status: Full Code - Course Hospital Course: Obdulio Lyles MD: 12/08/17 11:55 Patient is cooperative with therapy. Does have some increased fatigability and dyspnea with activity. Declines further anticoagulation at present. Neurologically stable. 12/09/17 11:02 Progressing with therapy as noted. Does have dyspnea with activity. 15 beat run of ventricular tachycardia which was asymptomatic yesterday. Vital signs stable otherwise. 12/12/17 12:09 Continues to have significant fatigability with activity. No chest pain. Remains in atrial fibrillation. Declines anticoagulation. 12/13/17 11:32 Making functional gains. Denies chest pain. Fatigued but no overt dyspnea. - Interventions to Obtain Goals PT Treatment Plan: Balance/Proprioception, Functional Activities, Gait Training , Patient/Family Education, Therapeutic Exercise OT Treatment Plan: ADL (Basic Care), Balance Training, Pt./Family Education, Ther. Exercise for ADL Goals Progress/Modifications: Patient seems to tolerate therapy reasonably well as long as adequate rest breaks are provided. She is making functional gains. I reassess her cardiac status today. Remains in atrial fibrillation but her CHF appears to be fairly well compensated at present. She states she feels though she is safe to go home and we will assess this at the team meeting today. With regard to CPR, she wishes full resuscitative efforts be undertaken in the event of an arrest.
--- NOTE | 2017-12-13 13:32 | IRU Team Meeting ---
IRU Team Meeting - Nursing Bladder Assistive Devices Utilized:: Absorbent Pad Bladder Management Level of Assist: Modified Independent Bladder Frequency of Accidents: No accidents Bowel Assistive Devices Utilized:: Medication Bowel Management Level of Assist: Modified Independent Bowel Frequency of Accidents: No accidents Vital Signs: Vital Signs - 24 hr 12/12/17 15:52 12/12/17 15:53 12/12/17 15:54 Temperature 97.5 F Pulse Rate 74 83 72 Respiratory Rate 16 16 Blood Pressure 122/72 133/98 H 135/85 Pulse Oximetry 97 97 97 12/12/17 16:00 12/12/17 19:39 12/12/17 19:40 Temperature 97.3 F Pulse Rate 93 74 68 Respiratory Rate 20 Blood Pressure 112/65 144/82 H Pulse Oximetry 93 12/13/17 07:15 12/13/17 07:16 12/13/17 07:17 Temperature 96.6 F L Pulse Rate 71 84 97 Respiratory Rate 18 Blood Pressure 143/81 H 130/85 132/86 Pulse Oximetry 95 97 96 12/13/17 08:00 Temperature Pulse Rate 100 Respiratory Rate Blood Pressure Pulse Oximetry Current Medications: Acetaminophen (Tylenol) 325 - 650 mg PO Q5H PRN PRN Reason: Pain Hydrocodone Bitart/Acetaminophen ([place] 5/325) 1 - 2 tab PO Q5H PRN PRN Reason: Pain Al Hydroxide/Mg Hydroxide (Maalox Plus) 30 ml PO Q3H PRN PRN Reason: Indigestion Aspirin (Asa) 81 mg PO [facility] Last Admin: 12/13/17 08:32 Dose: 81 mg Atorvastatin Calcium (Lipitor) 40 mg PO [facility] Last Admin: 12/12/17 20:18 Dose: 40 mg Atropine Sulfate (Atropine) 0.5 mg IVP Q5M PRN PRN Reason: Bradycardia Bisacodyl (Dulcolax) 5 mg PO DAILY PRN PRN Reason: Constipation Bisacodyl (Dulcolax) 10 mg RECTALLY DAILY PRN PRN Reason: Constipation Carvedilol (Coreg) 12.5 mg PO [facility] Last Admin: 12/13/17 08:33 Dose: 12.5 mg Famotidine (Pepcid) 20 mg PO [facility] Last Admin: 12/13/17 08:32 Dose: 20 mg Furosemide (Lasix) 40 mg PO [facility] Last Admin: 12/13/17 08:32 Dose: 40 mg Levothyroxine Sodium (Synthroid) 25 mcg PO AC[facility] Last Admin: 12/13/17 06:37 Dose: 25 mcg Lorazepam (Ativan) 0.5 mg PO Q6H PRN PRN Reason: Anxiety Magnesium Hydroxide (Mom) 30 ml PO DAILY PRN PRN Reason: Constipation Metoclopramide HCl (Reglan) 5 - 10 mg IVP Q6H PRN PRN Reason: Nausea &/or vomiting Nitroglycerin (Nitrostat) 0.4 mg SL Q5M PRN PRN Reason: Chest pain Sodium Chloride (Iv Flush) 10 ml IV PRN PRN PRN Reason: Flushing Last Admin: 12/13/17 08:33 Dose: 10 ml Spironolactone (Aldactone) 25 mg PO [facility] Last Admin: 12/13/17 08:32 Dose: 25 mg Current Medical Issues: systolic heart failure, atrial fibrillation, ASHD Comments: I certify that I personally led the interdisciplinary team meeting and agree with comments, barriers and goals indicated. Team meeting was held in the patient's room with the patient and the following family members present: patient's and patient's daughter Ms. Mckeon does display evidence of easy fatigability. She does not complain of dyspnea but does have some objective evidence of dyspnea/tachypnea with activity. She does require frequent rest breaks. Her appetite is reasonably good. Her medications are stable. She declines anticoagulation for her atrial fibrillation/stroke situation. - Physical Therapy Bed, Chair, Wheelchair Transfer Assist: Stand By Assist/Supervision Ambulation Ability: Stand By Assist/Supervision, Household Exception Ambulation Distance: 134 Wheelchair Propulsion Ability: Moderate Assistance Wheelchair Propulsion Distance: 115 Stair Climbing Ability: Stand By Assist/Supervision, Household Exception Number of Steps Climbed: 4 Car Transfer Ability: Stand By Assist/Supervision Comments: Patient has made functional gains. She is close to standby assist for most transfers and gait. She does have generalized weakness and instability. She does have quite a bit of fatigue with activity and demonstrates poor safety awareness at times despite repeated verbal cues. She will require supervision at home. Family present in the room and is aware of this. Recommend family training and this is arranged for a couple of days from now. - Occupational Therapy Eating Ability: Independent Grooming Ability: Stand By Assist/Supervision Bathing Ability: Stand By Assist/Supervision Upper Body Dressing Ability: Modified Independent Lower Body Dressing Ability: Contact Guard Assistance Tub Transfer Assist: Stand By Assist/Supervision Toileting Assist: Contact Guard Assistance Toilet Transfer Assist: Stand By Assist/Supervision Comments: She is supervision to contact guard level for ADLs. She does require rest breaks and does them shoot intensity balance at times. Recommend supervision at home. Family training will occur prior to dismissal. - Goals Physical Therapy Goals: 12/13/17 Goals: 1.) Walk 150 feet with supervision. 2. ) Decrease rest breaks to 3x per hour. 3.) Improve safety to demonstrate proper hand placement 100% of the time. Occupational Therapy Goals: OT goals 12/13/17: 1.) Lower body dressing with supervision. 2.) Toileting tasks with supervision. 3.) Simple meal prep with supervision by d/c. - Barriers to Discharge Barriers to Attaining Goals: Balance (balance and proprioceptive training is being provided.), Endurance (patient is taking rest breaks and working on taking fewer breaks.), Comprehension (patient has safety awareness issues. She is being provided safety cues and visual reminders.), Medical Limitation ( congestive heart failure and atrial fibrillation noted. Patient is on medication for this.) - Care Plan Anticipated Length of Stay (days): 3 Anticipated DC Destination: Home, Self Care, Home Health Service I have led this team conference and agree with the plan. Interventions/Goals: Anticipate safe transition to home on December 16 with home health assistance. Family training to occur prior to dismissal. She will require supervision at home.
[2017-12-13 17:39] VITALS: BMI 23.9
[2017-12-13] MEDS: ATORVASTATIN 40 MG TABLET PO SCH (20:28)
[2017-12-14] MEDS: LEVOTHYROXINE 25 MCG TABLET PO SCH ×2 (05:16→07:15)
[2017-12-14] MEDS: FUROSEMIDE 40 MG TABLET PO SCH (08:38)
[2017-12-14] MEDS: CARVEDILOL 12.5 MG TABLET PO SCH ×2 (08:39→18:05)
[2017-12-14] MEDS: SALINE FLUSH 10ml SYRINGE IV PRN ×3 (08:39→21:17)
[2017-12-14] MEDS: FAMOTIDINE 20 MG TABLET PO SCH (08:39)
[2017-12-14] MEDS: SPIRONOLACTONE 25 MG TABLET PO SCH (08:39)
[2017-12-14] MEDS: ASPIRIN 81 MG CHEWABLE TABLET PO SCH (08:39)
--- NOTE | 2017-12-14 11:05 | Progress Note ---
- Date 12/14/17 Subjective: Deyanira is seen this morning immediately after having finished all of her breakfast. She reports that she is doing well and denies any complaints or concerns. No chest pain, shortness of breath, abdominal pain, nausea, vomiting or diarrhea. Her appetite is stable and bowels are moving. She has been progressing well in therapy and is expected to discharge on December 16, which she is eager for. Objective Vital signs: Temperature 97.8 F 12/14/17 08:00 Pulse Rate 96 12/14/17 08:05 Respiratory Rate 12/14/17 08:00 Blood Pressure 134/96 H 12/14/17 08:00 Pulse Oximetry 95 12/14/17 08:00 Height/Weight/BMI: Height 5 ft 3 in Weight 130 lb 4.691 oz Body Mass Index 23.9 Comments: Sitting in the dining room, finished all her breakfast. - Constitutional Present: no acute distress, well nourished, well developed, cooperative - Routine HEENT Exam Head: Present: normocephalic, atraumatic Eye: Present: PERRL. Absent: conjunctival icterus ENT: Present: mucous membranes moist - Routine Respiratory Exam Present: CTA bilaterally. Absent: rales, respiratory distress, rhonchi, stridor , wheezes, crackles - Routine Cardiovascular Exam Present: irregularly irregular - Routine Abdominal Exam Present: soft, normoactive bowel sounds, non distended, non tender - Routine Extremities Exam Present: no edema, pulses intact - Routine Back/Spine/Pelvis Exam Back/Spine: Present: full ROM. Absent: vertebral tenderness - Routine Skin Exam Present: dry, warm. Absent: jaundice Comments: afebrile. - Routine Neurological Exam Present: alert, moving all extremities, hearing grossly intact, normal speech - Routine Lymphatic Exam Lymphatic: Absent: lymphedema - Routine Psychiatric Exam Present: cooperative Results - Labs CBC & Chem 7: 12/07/17 04:34 12/07/17 04:34 Assessment and Plan (1) Stroke due to embolism Problem details: Multifocal areas of acute infarct involving left cerebellum, right occipital lobe, and left frontal lobe. Current visit: No Status: Acute Assessment and Plan: Impression Debility, weakness Acute CVA acute on chronic systolic CHF, EF 25% - per echo 09/2017 at [facility]. NSVT Atrial fibulation Hypertensive heart disease Dizziness/vertigo CAD Hypothyroidism-TSH 7.97; 13 on 09/26/70 Valvular heart disease, MR, AI, pulmonary hypertension Plan - 12/14/17 Overall, doing well and medically stable. Continue current care. Anticipate discharge on 12/16/17. Resuscitation Status: Full Code - Time spent with patient Time with patient PN: 25 minutes - Physician Narrative Physician: Eugene Anne MD Narrative: Date: 12/14/17 Time: 1102 Hospital Course Summary Disclaimer: The visit summary below is not to be considered part of the above Progress Note. Hospital Course: Impression Debility, weakness Acute CVA Atrial fibulation Hypertensive heart disease Dizziness/vertigo CAD Hypothyroidism-TSH 7.97; 13 on 09/26/70 Valvular heart disease, MR, AI, pulmonary hypertension Plan Agree with admission to IRU under the care of Dr. Lyles for ongoing therapy and strengthening. Did speak with Dr. Paris, it is okay to remove bilateral wrists blends as it has been 24 hours post cardiac cath Continue with aspirin and Lipitor. Will plan to start Eliquis 2.5 twice a day Mar 1 which is 2 wks following her stroke. Monitor blood pressure, continue on Coreg and Aldactone Encourage work with PT and OT for ongoing strengthening At time of discharge medical care will return to primary care provider, ? Dr Sung 12/09 NSVT - Dr. Paris already notified Continue with ASA, lipitor, carvedilol, lasix, spironolactone. Eliquis 2.5 mg BID to start on 12/15/17; will plan on stopping ASA at that time per discussion with Dr. Paris.
[2017-12-14] MEDS: ATORVASTATIN 40 MG TABLET PO SCH (21:17)
[2017-12-15] MEDS: LEVOTHYROXINE 25 MCG TABLET PO SCH (06:46)
[2017-12-15] MEDS: FUROSEMIDE 40 MG TABLET PO SCH (08:39)
[2017-12-15] MEDS: ASPIRIN 81 MG CHEWABLE TABLET PO SCH (08:39)
[2017-12-15] MEDS: CARVEDILOL 12.5 MG TABLET PO SCH ×2 (08:39→17:36)
[2017-12-15] MEDS: SPIRONOLACTONE 25 MG TABLET PO SCH (08:40)
[2017-12-15] MEDS: FAMOTIDINE 20 MG TABLET PO SCH (08:40)
--- NOTE | 2017-12-15 11:51 | IRU Progress Note ---
- Subjective/Serverity of Illness Date: 12/15/17 Ms. Mckeon was interviewed and examined in her room on inpatient rehabilitation. Patient's and daughter and therapist are present in the room at the same time. She is standing at the sink doing her hair. She is doing very well. Balance appears to be fairly good. Safety awareness appears to be adequate at present. She states that she feels safe to go home. Family present and will provide 24-hour supervision as well. From a medical standpoint she continues to have atrial fibrillation and continues to be off anticoagulants per her request. Neurologically she is unchanged. Her lungs remain clear. Exam Vital Signs: Temperature 98 F 12/15/17 08:00 Pulse Rate 96 12/15/17 10:32 Respiratory Rate 14 12/15/17 08:00 Blood Pressure 127/76 12/15/17 10:32 Pulse Oximetry 100 12/15/17 08:00 Height/Weight/BMI: Height 1.6 m Weight 59.1 kg Body Mass Index 23.9 - Constitutional Present: no acute distress, well nourished, well developed, cooperative - Routine HEENT Exam Eye: Present: EOMI ENT: Present: mucous membranes moist, oropharynx clear - Routine Respiratory Exam Present: CTA bilaterally. Absent: wheezes - Routine Cardiovascular Exam Present: S1, S2, irregularly irregular. Absent: murmur - Routine Abdominal Exam Present: soft, normoactive bowel sounds, non distended. Absent: tenderness - Routine Extremities Exam Present: no edema - Routine Skin Exam Present: dry, warm - Routine Neurological Exam Present: alert, oriented X3, CN II-XII intact Seems to be neurologically intact at the present time. - Routine Psychiatric Exam Present: normal affect. Absent: good insight, good judgment IRU A/P (1) Stroke due to embolism Qualifiers: Precerebral and cerebral artery: middle cerebral artery Laterality of affected vessel: left Qualified Code(s): I63.412 - Cerebral infarction due to embolism of left middle cerebral artery Problem details: Multifocal areas of acute infarct involving left cerebellum, right occipital lobe, and left frontal lobe. Current visit: No Status: Acute Patient is neurologically stable. However she is at risk for additional strokes in view of her atrial fib and refusal to take other anticoagulants. (2) ASHD (arteriosclerotic heart disease) Current visit: Yes Status: Chronic (3) Acute congestive heart failure Qualifiers: Heart failure type: systolic Qualified Code(s): I50.21 - Acute systolic ( congestive) heart failure Current visit: No Status: Acute Seems to be fairly compensated at the present time. Lungs are clear. (4) Atrial fibrillation with rapid ventricular response Current visit: No Status: Chronic DVT Prophylaxis: SCD's Resuscitation Status: Full Code - Course Hospital Course: Obdulio Lyles MD: 12/08/17 11:55 Patient is cooperative with therapy. Does have some increased fatigability and dyspnea with activity. Declines further anticoagulation at present. Neurologically stable. 12/09/17 11:02 Progressing with therapy as noted. Does have dyspnea with activity. 15 beat run of ventricular tachycardia which was asymptomatic yesterday. Vital signs stable otherwise. 12/12/17 12:09 Continues to have significant fatigability with activity. No chest pain. Remains in atrial fibrillation. Declines anticoagulation. 12/13/17 11:32 Making functional gains. Denies chest pain. Fatigued but no overt dyspnea. 12/15/17 11:51 Patient appears to be stable for dismissal tomorrow. Continues to have easy fatigability without overt dyspnea. No chest pain. - Interventions to Obtain Goals PT Treatment Plan: Balance/Proprioception, Functional Activities, Gait Training , Patient/Family Education, Therapeutic Exercise OT Treatment Plan: ADL (Basic Care), Balance Training, Pt./Family Education, Ther. Exercise for ADL
[2017-12-15] MEDS: SALINE FLUSH 10ml SYRINGE IV PRN (17:37)
[2017-12-15] MEDS: ATORVASTATIN 40 MG TABLET PO SCH (21:45)
[2017-12-16] MEDS: LEVOTHYROXINE 25 MCG TABLET PO SCH (05:50)
[2017-12-16 07:35] VITALS: RESP 16; TEMP 96.2; O2SAT 94
[2017-12-16 07:37] VITALS: BP 141/84
[2017-12-16] MEDS: FAMOTIDINE 20 MG TABLET PO SCH (09:09)
[2017-12-16] MEDS: CARVEDILOL 12.5 MG TABLET PO SCH (09:09)
[2017-12-16] MEDS: ASPIRIN 81 MG CHEWABLE TABLET PO SCH (09:09)
[2017-12-16] MEDS: FUROSEMIDE 40 MG TABLET PO SCH (09:09)
[2017-12-16] MEDS: SPIRONOLACTONE 25 MG TABLET PO SCH (09:10)
--- NOTE | 2017-12-16 10:35 | IRU Progress Note ---
- Subjective/Serverity of Illness Date: 12/16/17 Ms. Mckeon was interviewed and examined with her family in the room. She says that she is ready to go home. She feels that she is safe to go home. We discussed with her the issue of Eliquis and recommended that she take this at 2.5 mg twice daily. Aspirin has been discontinued. Patient states that she does not wish to take this. Her daughter is with her in the room says that they will discuss this. She denies any chest pain. She does have easy fatigability and occasional dyspnea but nothing is worse. She has had some nausea yesterday which she attributes to her hiatal hernia. She states that the nausea has not recurred. She has had no vomiting. She denies any abdominal pain. Exam Vital Signs: Temperature 96.2 F L 12/16/17 07:33 Pulse Rate 79 12/16/17 07:33 Respiratory Rate 16 12/16/17 07:33 Blood Pressure 141/84 H 12/16/17 07:35 Pulse Oximetry 94 12/16/17 07:33 Height/Weight/BMI: Height 1.6 m Weight 59.3 kg Body Mass Index 23.9 - Constitutional Present: no acute distress, well nourished, well developed, cooperative - Routine HEENT Exam Head: Present: normocephalic - Routine Neck Exam Present: supple - Routine Respiratory Exam Present: CTA bilaterally. Absent: wheezes, crackles - Routine Cardiovascular Exam Present: S1, S2, murmur, irregularly irregular - Routine Abdominal Exam Present: soft, normoactive bowel sounds, non distended. Absent: tenderness - Routine Extremities Exam Present: no edema - Routine Skin Exam Present: intact, dry, warm - Routine Neurological Exam Present: alert, oriented X3, CN II-XII intact. Absent: hearing grossly intact - Routine Psychiatric Exam Present: normal affect, cooperative IRU A/P (1) Stroke due to embolism Qualifiers: Precerebral and cerebral artery: middle cerebral artery Laterality of affected vessel: left Qualified Code(s): I63.412 - Cerebral infarction due to embolism of left middle cerebral artery Problem details: Multifocal areas of acute infarct involving left cerebellum, right occipital lobe, and left frontal lobe. Current visit: No Status: Acute At the time of discharge, the patient is neurologically stable. She is at risk for additional strokes however due to her underlying atrial fibrillation. Please see the above discussion regarding the use of Eliquis. (2) ASHD (arteriosclerotic heart disease) Current visit: Yes Status: Chronic (3) Acute congestive heart failure Qualifiers: Heart failure type: systolic Qualified Code(s): I50.21 - Acute systolic ( congestive) heart failure Current visit: No Status: Acute At the present time she seems to be relatively well controlled/compensated. Does have easy fatigability and some degree of dyspnea. No particular edema noted. (4) Atrial fibrillation with rapid ventricular response Current visit: No Status: Chronic DVT Prophylaxis: SCD's Resuscitation Status: Full Code - Course Hospital Course: Obdulio Lyles MD: 12/08/17 11:55 Patient is cooperative with therapy. Does have some increased fatigability and dyspnea with activity. Declines further anticoagulation at present. Neurologically stable. 12/09/17 11:02 Progressing with therapy as noted. Does have dyspnea with activity. 15 beat run of ventricular tachycardia which was asymptomatic yesterday. Vital signs stable otherwise. 12/12/17 12:09 Continues to have significant fatigability with activity. No chest pain. Remains in atrial fibrillation. Declines anticoagulation. 12/13/17 11:32 Making functional gains. Denies chest pain. Fatigued but no overt dyspnea. 12/15/17 11:51 Patient appears to be stable for dismissal tomorrow. Continues to have easy fatigability without overt dyspnea. No chest pain. 12/16/17 10:34 Patient is stable for dismissal. Follow-up with Dr. Sung and Dr. Syed. - Interventions to Obtain Goals PT Treatment Plan: Balance/Proprioception, Functional Activities, Gait Training , Patient/Family Education, Therapeutic Exercise OT Treatment Plan: ADL (Basic Care), Balance Training, Pt./Family Education, Ther. Exercise for ADL
[2017-12-16] MEDS ORDERED: FALL RISK - PHARMACY CONSULT XX ONE (10:43)
--- NOTE | 2017-12-16 14:15 | Discharge Summary ---
Discharge Information Date of admission: 12/06/17 16:23 Anticipated date of discharge: 12/16/17 Attending Physician: Obdulio Lyles MD Consults: 12/06/17 17:09 Physician Consult [CONS] Routine Consulting Provider: Barbara Sousa Reason For Exam: medical management Ordering Provider has Notified Supervisor Lime: No 12/06/17 17:14 Physician Consult [CONS] Routine Consulting Provider: Ag Paris Reason For Exam: elevated troponin, A. fib, stroke Ordering Provider has Notified Supervisor Lime: Yes 12/13/17 13:44 Dietary Consult [CONS] Routine Comment: Reason For Exam: cardiac diet; risk of poor nutrition - Discharge Diagnosis (1) Stroke due to embolism Status: Acute (2) ASHD (arteriosclerotic heart disease) Status: Chronic (3) Acute congestive heart failure Status: Acute (4) Atrial fibrillation with rapid ventricular response Status: Chronic 1. Cardioembolic strokes, bilateral 2. Atrial fibrillation with rapid ventricular response 3. Acute systolic congestive heart failure 4. Atherosclerotic heart disease - Laboratory Labs: 12/07/17 04:34 12/07/17 04:34 History of Present Illness HPI: Ms. Mckeon developed sudden dizziness and fell to the floor on the afternoon of 11/30/2017. She recalled the entire event and states that she was never unconscious. She was able to crawl over and answer a telephone call. She was brought to the emergency department on that same date and was noted to have markedly elevated blood pressures along with symptoms consistent with vertigo. She was given labetalol IV plus diltiazem plus Lasix. She continued to be weak and dizzy. She does have a history of chronic atrial fibrillation and has declined to take a blood thinner apart from a [place] extract. Initial diagnosis was hypertensive urgency with possible congestive heart failure. Head CT scan was negative. Subsequent echocardiogram on December 01 demonstrated global hypokinesis with ejection fraction markedly reduced at 30%. A prior echocardiogram from September 2017 reported an ejection fraction of 25%) . MRI of the head was performed revealing multiple areas of acute infarct involving the left cerebellum, right occipital lobe and left frontal lobe. She was seen by Dr. Javad Paris. Her troponin was slightly elevated and a cardiac catheterization was performed demonstrating a patent cardiac stent and mid LAD roughly 50% heavily calcified lesion. Non-STEMI was not felt to have occurred. Because of the acute multiple CVAs she developed multiple functional deficits. This was in the setting of acute on chronic systolic heart failure with ejection fraction estimated at around 30% along with hypertension and atrial fibrillation with recent rapid ventricular response. Inpatient rehabilitation was recommended. Hospital Course This is a general summary of the patient's hospital course. For more details refer to the complete medical record. The patient was admitted to acute inpatient rehabilitation on 12/06/2017 for a multidisciplinary approach. From a medical standpoint, she was followed by Dr. Paris as well as the hospitalist service. She continued in atrial fibrillation. She continued to decline Eliquis or warfarin. She states that warfarin made her tired in the past. Dr. Paris ultimately signed off and recommended that she follow-up with her pasting inspector in [place], Dr. Syed. Her blood pressures remained stable in the 110-130 range systolic. She did have a run of nonsustained ventricular tachycardia which was totally asymptomatic and not separately treated. Her oxygen saturations looked good on room air. At the time of dismissal, she was advised to stop her aspirin and start Eliquis 2.5 mg twice daily. A prescription was provided in this regard. However, the patient states that she does not wish to take this. The family told me that they would discuss this with her. She was advised that if she does not switch to Eliquis she should stay on the aspirin. I personally discussed with the patient on 2 occasions the issue of resuscitation in the event of an arrest. On both occasions she states that she does wish CPR and mechanical ventilation and DC countershock if necessary. This was also confirmed with the family. The following gains are to be considered preliminary. The reader is encouraged to refer to actual therapy notes and reports for specific details. Patient was seen by occupational therapy with the following functional gains identified: Eating ability was modified independent upon admission and independent upon dismissal. Grooming was standby assist level upon admission and dismissal. Bathing was standby assistance on admission and dismissal. Upper body dressing improved from minimum assistance to modified independent level. Lower body dressing improved from minimum assistance to standby assistance. Toileting assistance improved from contact-guard level to standby assistance. Transfers and bed/chair/wheelchair transfers and general were standby assistance level. She was also seen by physical therapy with the following functional gains identified: Bed/chair/wheelchair transfers were initially minimum assistance and ultimately standby assistance. Ambulatory ability was initially contact- guard assistance with a front-wheeled walker 168 feet. Upon dismissal she was able to ambulate with a front-wheeled walker 150 feet with standby assistance. Ultimately she was able to climb 6 steps with standby assistance. The patient is dismissed in improved condition on 12/16/2017. Appointments were made for her to see her pasting inspector Dr Syed as well as her new primary care physician Dr. Irene Sung. Please note the above discussion regarding Eliquis. Hospital course: Impression Debility, weakness Acute CVA Atrial fibulation Hypertensive heart disease Dizziness/vertigo CAD Hypothyroidism-TSH 7.97; 13 on 09/26/70 Valvular heart disease, MR, AI, pulmonary hypertension Plan Agree with admission to IRU under the care of Dr. Lyles for ongoing therapy and strengthening. Spinal services will see patient and medically manage existing comorbidities. Did speak with Dr. Paris, it is okay to remove bilateral wrists blends as it has been 24 hours post cardiac catheter Continue with aspirin and Lipitor given. Acute stroke. Will plan to start Eliquis 2.5 twice a day Dec 1 which is 2 wks following her stroke. Monitor blood pressure, continue on Coreg and Aldactone Encourage work with PT and OT for ongoing strengthening Will discuss further orders and plan of care with attending, Dr. James At time of discharge medical care will return to primary care provider, ? Dr Sung Time spent with patient: greater than 35 minutes Resuscitation Status: Full Code Discharge Plan - Med Rec/Dispo Referrals/Follow Up: Irene Sung MD [Physician] - (Dr. Dian Sung on 12/28/17 at 1:30 pm for Hosp. follow-up. [phone]. [address] [place] [address]) Tyree Syed MD [Physician] - (F/u with pasting inspector, Dr. Syed, after discharge from rehab. [facility] [address] [place] [address]) Prescriptions: New Carvedilol [Coreg] 12.5 mg PO BIDWM #60 tab Apixaban [Eliquis] 2.5 mg PO BID #60 tab Continue Acetaminophen [Tylenol] 325 - 650 mg PO Q5H PRN tab PRN Reason: Pain Famotidine [Pepcid] 20 mg PO BID tab Furosemide [Lasix] 40 mg PO DAILY tab Nitroglycerin [Nitrostat] 0.4 mg SL Q5M PRN tab PRN Reason: Angina Spironolactone [Aldactone] 25 mg PO DAILY tab Levothyroxine Tab [Synthroid] 25 mcg PO ACB Atorvastatin [Lipitor] 40 mg PO HS tab LORazepam [Ativan] 0.5 mg PO Q6H PRN tab PRN Reason: Anxiety Discontinued Aspirin Chewable [ASA] 81 mg PO DAILY tab.chew Bisacodyl Supp [Dulcolax] 10 mg RECTALLY DAILY PRN suppositor PRN Reason: Constipation Bisacodyl EC TAB [Dulcolax] 5 mg PO DAILY PRN tab PRN Reason: Constipation Carvedilol [Coreg] 6.25 mg PO TIDWM tab Hydrocodone/APAP 5/325 [[place] 5/325] 1 - 2 tab PO Q5H PRN tab PRN Reason: Pain Mag-Al + Sim Oral Liq [Maalox Plus] 30 ml PO Q3H PRN udc PRN Reason: Indigestion Metoclopramide [Reglan] 5 - 10 mg IVP Q6H PRN vial PRN Reason: Nausea &/Or Vomiting Milk of Magnesia [Mom] 30 ml PO DAILY PRN udc PRN Reason: Constipation - Disposition 01 Discharged Home, Self-Care - Dismissal Complete Discharge Instructions are:: Complete
--- NOTE | 2017-12-16 14:28 | Letter to Referring Physician ---
Dear Dr. Sung, This is a brief note to bring you up-to-date on the status of Deyanira Mckeon and her stay on the acute inpatient rehabilitation unit at [facility]. You have not met her but an appointment is upcoming in your office for her. To briefly summarize, she was recently admitted to [facility] with cardioembolic strokes bilaterally. They affected predominantly her balance. She is in chronic atrial fibrillation and has declined anticoagulants except the use of a [place] extract. She is followed by Dr. Syed in [place]. After admission here she did have some chest discomfort and had a small bump in her troponin. She had atrial fibrillation with rapid ventricular response. She was seen by Dr. Javad Paris who performed a cardiac catheterization revealing a previously placed stent was patent. There is a 50% lesion in LAD otherwise which was not felt to be critical at this time. She was treated medically. She was admitted to the acute care hospital on 11/30/17 for hypertensive urgency and ultimately AF with RVR and cardioembolic CVA's. The patient was stabilized while on the acute level and admitted to inpatient rehabilitation unit at [facility] on December 06, 2017. While on inpatient rehabilitation, this patient was seen by occupational therapy and physical therapy and improved overall in their functional ability. With the help of the hospitalist service and Dr. Paris, we also monitored and managed the patient's CHF, hypertension and AF while on Acute Rehab. Please see a copy of the history and physical examination as well as discharge summary enclosed with this letter for further details. She improved nicely and was felt to be stable for dismissal to her home with home health service on 12/16/2017. She has appointments to follow-up in your office as well as Dr. Syed's. Dr. Paris has signed off from her care at this time since she is seeing Dr. Syed. Thank you for allowing us to be involved in this nice patient's care. Please contact me directly should you have any questions regarding their stay on the inpatient rehabilitation unit. Sincerely, Obdulio Lyles M.D.
[2017-12-16 17:28] VITALS: PULSE 99
== END 2017-12-16 12:30 | disposition home health service (06) | DRG 56 ==
PROVIDERS: ADMIT Internal Medicine; ATTEND Internal Medicine

== ENCOUNTER 2018-02-08 11:32 | Inpatient (IN) ==
[2018-02-08] MEDS: SALINE FLUSH 10ml SYRINGE IVF PRN ×2 (11:43→12:24)
--- NOTE | 2018-02-08 11:52 | CT Scan Report ---
Indication: LOSS OF SPEECH PROCEDURE: CT head/brain wo con: Encounter: Initial Comparison: Head CT dated November 30, 2017 and brain MRI dated December 01, 2017 Technique: Axial CT images through the head were performed without contrast. Iterative Reconstruction dose reducing technique was utilized. FINDINGS: Involving infarct in the left cerebellum as noted on the prior MRI.. Old areas of ischemia in the left frontal and right occipital lobes are better seen on the prior MRI. No definite areas of new territorial stroke. Moderate generalized atrophy The ventricles are of normal size, shape, and contour for the patient's age. There are numerous areas of low attenuation in the white matter which most likely represent changes from chronic microvascular ischemia. The brainstem, cerebellum, and cerebral hemispheres otherwise have a normal morphology and CT attenuation. There is no evidence of midline displacement. No hemorrhage mass effect, mass lesions, or edema is evident. The visualized portions of the skull base, midface, and calvarium demonstrate no abnormality. The paranasal sinuses are well aerated and free of significant disease. The tympanic and mastoid cavities appear normal. IMPRESSION: Interval evolution of prior infarcts in the left cerebellum, left frontal and right occipital lobes. No acute intracranial hemorrhage or definite new acute infarct. If there is continued clinical concern for acute ischemia, repeat MRI could be performed. .
--- NOTE | 2018-02-08 12:00 | Emergency Department Report ---
Altered Mental Status HPI - General Chief Complaint: Altered Mental Status Stated Complaint: stroke Time Seen by Provider: 02/08/18 11:43 - History of Present Illness HPI narrative: 87-year-old female presents to ED in wheelchair. She is reported to have had onset of possible stroke. She stood up from her chair at approximately 10 AM and became confused as she stood up. She was suddenly unable to speak and unable to use her right arm and developed right leg weakness as well. She does have left sided residual from previous CVA, but has accommodated and worked well with that and had no issues with verbalization prior to this episode. No fever or chills - Related Data Home Medications Medication Instructions Recorded Confirmed No known Home medications [No home 02/08/18 02/08/18 meds] Allergies Allergy/AdvReac Type Severity Reaction Status Date / Time losartan Allergy Severe Anaphylactic Verified 02/08/18 12:36 Shock Tetanus Vaccines and Toxoid Allergy Severe PT HAS HAD Verified 02/08/18 12:36 THE DISEASE Sulfa (Sulfonamide Allergy Mild RASH Verified 02/08/18 12:36 Antibiotics) amiodarone Allergy Unknown Verified 02/08/18 12:36 lisinopril AdvReac Cough Verified 02/08/18 12:36 [facility] Patient Stated Medical History Cardiac Arrhythmia Yes: a fib Hypertension Yes Constipation Yes: takes prune juice at home Hiatal Hernia Yes Hx Incontinence No Shingles Yes Clinic Medical History (Last Reviewed 12/01/17 @ 11:58 by Barbara Sousa MD ) Hypothyroidism (Chronic Medical) Tetanus (Resolved Medical) Hypertension (Chronic Medical) Atrial fibrillation (Acute Medical) CAD (coronary artery disease) (Acute Medical) Cardiomyopathy (Acute Medical) Pulmonary hypertension (Acute Medical) Valvular heart disease (Acute Medical) Surgical History: *Dental work with dentures age 13. *Bilateral Cataract Removal. *Cholecystectomy 1988. *Appendectomy age 13. *Total Abdominal Hysterectomy. BS&O. Bladder "pinned" up. Cardiac stent placed Family History: Family History (Last Updated 12/01/17 @ 11:56 by Barbara Sousa MD) Brother Heart problem Father Ruptured, esophagus Mother Stroke Sister Atrial fibrillation Sister Atrial fibrillation Family History Updates: Brother- cardiac disease. Father-"ruptured esophagus". Mother- CVA. Sister-Atrial fibrillation - Social History Smoking status: Current every day smoker second hand exposure: Yes Substance use type: does not use Alcohol intake: never Alcohol intake frequency: does not drink Housing: house Household members: spouse Current occupational status: retired Current residence: Apartment/Private Home Disposition Prescriptions: No Action No known Home medications [No home meds] 0 #0 misc
[2018-02-08] MEDS ORDERED: HYDRALAZINE 20 MG/ML INJECTION IVP ONE ×2 (12:21→12:57)
[2018-02-08] MEDS ORDERED: ALTEPLASE (Activase*) 100mg INJECTION (Stroke Tx) IV ONE ×2 (12:21→12:22)
[2018-02-08] MEDS ORDERED: NS 1,000 ML IV SCH (13:00)
--- NOTE | 2018-02-08 13:20 | History & Physical Report ---
History of Present Illness Date: 02/08/18 Chief complaint: R sided weakness and aphasia HPI: Patient is an 87 yo female who was recently hospitalized for a cardioembolic stroke involving multiple vascular territories. She went to [facility] rehab following her acute stay and was able to walk with a walker and perform most ADL 's. She was back at home living independently with her until today at 10am when she developed R sided weakness and couldn't talk. Her states she could still walk w/ her walker, but that she couldn't speak, so he knew something was wrong. She stopped her Eliquis and carvedilol within the past 2- 3 weeks due to s.e.'s. She wasn't sleeping well, had body aches and was getting progressively short of breath. 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 She felt the risk of possible stroke was worth it based on her poor quality of life while taking these medications. Her daughter reports that all of her s.e.'s had almost resolved and she was feeling the best she had in quite awhile after stopping the medications. In ER, she had a head CT showing interval evolution of prior infarcts but no acute intracranial hemorrhage or definite new acute infarct. She received a dose of 1mg lorazepam and 5mg hydralazine while in ER. Given her sxs and risk factors, she was a candidate for TPA and chose to go ahead with tx. TPA was infusing while I was seeing the pt in ER. Pt was unable to give any history due to her aphasia. All information was taken from pt's daughter, ER doctor and information on file from previous hospitalization. She is able to say "yes" when asked if she would like resuscitated in the event her heart should stop. Review of Systems ROS unobtainable: other (unable to obtain d/t aphasia) Past Medical History Medical History: Medical History (Last Updated 02/08/18 @ 13:20 by JUANCHO Fan) CHF (congestive heart failure) (Acute) Valvular heart disease (Acute) Pulmonary hypertension (Acute) Cardiomyopathy (Acute) CAD (coronary artery disease) (Acute) Atrial fibrillation (Acute) Hypothyroidism (Chronic) Hypertension (Chronic) Tetanus Surgical History: *Dental work with dentures age 13. *Bilateral Cataract Removal. *Cholecystectomy 1988. *Appendectomy age 13. *Total Abdominal Hysterectomy. BSO. Bladder "pinned" up. Cardiac stent placed Family History: Family History Heart problem Father Ruptured, esophagus Mother Stroke Sister Atrial fibrillation Sister Atrial fibrillation Family History: As Above - Social History Substance use type: does not use Alcohol intake frequency: does not drink Current residence: Apartment/Private Home Social history: PCP-Dr. Irene Sung Cardiology-Dr. Syed CODE STATUS-full Alternate decision makers-patient's and daughter-Jackie Medications Home Medications Medication Instructions Recorded Confirmed Type Furosemide [Lasix 40 mg Tab] 40 mg PO PRN 02/08/18 02/08/18 History Allergies Allergy/AdvReac Type Severity Reaction Status Date / Time losartan Allergy Severe Anaphylactic Verified 02/08/18 12:36 Shock Tetanus Vaccines and Toxoid Allergy Severe PT HAS HAD Verified 02/08/18 12:36 THE DISEASE Sulfa (Sulfonamide Allergy Mild RASH Verified 02/08/18 12:36 Antibiotics) amiodarone Allergy Unknown Verified 02/08/18 12:36 lisinopril AdvReac Cough Verified 02/08/18 12:36 Exam Vital Signs: Temperature 98.6 F 02/08/18 11:32 Pulse Rate 131 H 02/08/18 12:24 Respiratory Rate 28 H 02/08/18 11:32 Blood Pressure 185/114 H 02/08/18 12:24 Pulse Oximetry 89 L 02/08/18 11:32 Height/Weight/BMI: Height 1.63 m Weight 63.2 kg - Constitutional Present: no acute distress, well nourished, well developed - Routine HEENT Exam Head: Present: normocephalic, atraumatic Eye: Present: PERRL ENT: Present: mucous membranes moist, oropharynx clear - Routine Neck Exam Present: supple. Absent: lymphadenopathy, thyromegaly - Routine Respiratory Exam Present: decreased breath sounds, CTA bilaterally. Absent: wheezes - Routine Cardiovascular Exam Present: no murmur, irregular rhythm - Routine Abdominal Exam Present: soft, normoactive bowel sounds. Absent: tenderness, distended - Routine Extremities Exam Present: edema (1+ pitting pedal b/l), normal capillary refill - Routine Skin Exam Present: dry, warm - Routine Neurological Exam Present: alert, moving all extremities. Absent: normal speech (attempts to speak but becomes frustrated at not being able to voice her words. ) - Routine Psychiatric Exam Present: normal affect, cooperative Results - Labs CBC & Chem 7: 02/08/18 11:37 02/08/18 11:37 Labs: UA - neg - Imaging and Cardiology CT scan - head Additional comments: Date of Exam: 02/08/18 Indication: LOSS OF SPEECH PROCEDURE: CT head/brain wo con: FINDINGS: Involving infarct in the left cerebellum as noted on the prior MRI.. Old areas of ischemia in the left frontal and right occipital lobes are better seen on the prior MRI. No definite areas of new territorial stroke. Moderate generalized atrophy The ventricles are of normal size, shape, and contour for the patient's age. There are numerous areas of low attenuation in the white matter which most likely represent changes from chronic microvascular ischemia. The brainstem, cerebellum, and cerebral hemispheres otherwise have a normal morphology and CT attenuation. There is no evidence of midline displacement. No hemorrhage mass effect, mass lesions, or edema is evident. The visualized portions of the skull base, midface, and calvarium demonstrate no abnormality. The paranasal sinuses are well aerated and free of significant disease. The tympanic and mastoid cavities appear normal. IMPRESSION: Interval evolution of prior infarcts in the left cerebellum, left frontal and right occipital lobes. No acute intracranial hemorrhage or definite new acute infarct. If there is continued clinical concern for acute ischemia, repeat MRI could be performed. Assessment and Plan Assessment and Plan: Assessment Acute ischemic/thromboembolic CVA Right hemiparesis Dysarthria Atrial fibrillation Hypertension CAD CHF - chronic systolic Cardiomyopathy with EF 30% Valvular heart disease, MR, AI, Hypertension Pulmonary hypertension Hypothyroidism -(TSH 7.97 on 11/30/17) Plan Admit to CCU, IP. Stay expected to exceed 2 overnights for monitoring, BP control, anticoagulation, etc. Consult Dr. Marroquin for his recommendations. (Dr. Dodson is out until 02/13/18) OT/PT/ST to assess functional status and work on rehabilitation. Neuro checks, NIH stroke scale assessments, telemetry. IVF's, echocardiogram. Start statin. Start ASA tomorrow evening - needing to hold for 24 to 48 hours after Activase. Avoid hypotension. Check lipids, magnesium, TSH, and repeat CBC and CMP in am. Care to return to Dr. Sung on dismissal. DVT Prophylaxis: SCD's Resuscitation Status: Full Code - Physician Narrative Physician: Eugene Anne MD Narrative: Date: 02/08/18 Time: 1720 Have independently interviewed and examined pt. Chart reviewed. Case discussed with ED physician, pt's , and my PA. Care plan developed with my supervision; agree with above. Presents to Ed with sudden onset of inability to speak and right sided weakness. Onset his morning. No KRAUSE or trauma. Recently stopped CV medications due to significant side effects. Evaluated in ED. CT without acute bleed. Given Alteplase and admitted to CCU. In CCU, speech still dysarthric - about only word she can say is 'no.' - other words just mumbles. Able to move right upper ext, but movement incoordinated. Denies KRAUSE or nausea. Breathing well. Lungs: decreased bilaterally CV: irregularly irregular with rate 100-110. AB: soft nt/nd EXT: trace edema, SCD in place Neuro: able to move right upper ext with gross motor, decreased movement of finger and fine motor. Speech dysarthric. Plan: Inpatient admission secondary to acute ischemic CVA with right hemiparesis and dysarthria - CCU secondary to thrombolytic administration. Hold on ASA/anticoagulants for 24 hours. Speech to clear swallow prior to oral medications or oral intake. IVF of NS at 75cc/hr to maintain hydration. Avoid hypotension. SCD for DVT prevention. Will have Zofran prn nausea. Lorazepam prn anxiety. PT/OT/Speech consult for restorative modalities. Check TSH secondary to hypothyroidism and recent (2 months ago) elevation of Synthroid. Monitor lab. Full code per her requests. Care to return to Dr Sung at time of discharge from [facility]. Hospital Course Summary Disclaimer: The visit summary below is not to be considered part of the above Progress Note. Hospital Course: 02/08/18 Admit to CCU, Inpatient. Stay expected to exceed 2 overnights for monitoring, BP control, anticoagulation, etc. Consult Dr. Marroquin for his recommendations. (Dr. Dodson is out until 02/13/18). OT/PT/ST to assess functional status and work on rehabilitation. Neuro checks, NIH stroke scale assessments, telemetry. IVF's, echocardiogram. Start statin. Start ASA tomorrow evening - needing to hold for 24 to 48 hours after Activase. Avoid hypotension. Check lipids, magnesium, TSH, and repeat CBC and CMP in am. Care to return to Dr. Sung on dismissal.
[2018-02-08] MEDS ORDERED: ONDANSETRON 4 MG/2 ML INJECTION IVP PRN (14:22)
[2018-02-08] MEDS ORDERED: ACETAMINOPHEN 325 MG TABLET PO PRN (14:22)
[2018-02-08] MEDS ORDERED: BISACODYL 10 MG SUPPOSITORY RECTALLY PRN (14:22)
[2018-02-08 14:47] VITALS: BMI 23.7
--- NOTE | 2018-02-08 16:29 | XRay Report ---
Indication: Dyspnea/Hypoxia PROCEDURE: XR chest 1V: Encounter: Initial Comparison: November 30, 2017 Findings: Prior pulmonary edema has improved. There are senescent changes in the lungs without focal consolidative pneumonia. No pleural effusion or pneumothorax. Heart size and mediastinal contours are stable allowing for differences in rotation. Impression: Interval improvement in pulmonary edema. No focal pneumonia or overt congestive failure currently. .
[2018-02-08] MEDS ORDERED: ACETAMINOPHEN 650 MG SUPPOSITORY PR PRN (17:13)
[2018-02-08] MEDS: NS 1,000 ML IV SCH (17:43)
[2018-02-08] MEDS: ROSUVASTATIN 20 MG TABLET PO SCH (20:48)
[2018-02-09] MEDS: NS 1,000 ML IV SCH (06:38)
--- NOTE | 2018-02-09 08:18 | Progress Note ---
- Date 02/09/18 Subjective: Patient is an 87 yo female who was recently hospitalized for a cardioembolic stroke involving multiple vascular territories. She went to [facility] rehab following her acute stay and was able to walk with a walker and perform most ADL 's. She was back at home living independently with her until today at 10am when she developed R sided weakness and dysphasia. Her states she could still walk w/ her walker, but that she couldn't speak, so he knew something was wrong. Since being home she wasn't sleeping well, had body aches and was getting progressively short of breath. She discussed going off of her meds with with her analysis specialist's midlevel and understood the risk of stroke should she go off of her medications. Her Eliquis was stopped a couple of weeks ago due to SOA. She did not really get better so her carvedilol was stopped approx a week ago. She did improved from her SOA standpoint. After her rehab stay she did not stay with the rehab practices due to muscle aching and she declined in her abilities a bit. She felt the risk of possible stroke was worth it based on her poor quality of life while taking these medications. Her daughter reports that all of her side effects had almost resolved and she was feeling the best she had in quite awhile once the medications were stopped. In ER, she had a head CT showing interval evolution of prior infarcts but no acute intracranial hemorrhage or definite new acute infarct. She received a dose of 1mg lorazepam and 5mg hydralazine while in ER. Given her sxs and risk factors, she was a candidate for TPA and chose to go ahead with tx. Pt was unable to give any history due to her aphasia. All information was taken from pt 's daughter, ER doctor and information on file from previous hospitalization. She is able to say "yes" when asked if she would like resuscitated in the event her heart should stop. This am pt is doing a bit better with speaking. She still has some word finding difficulties. Her daughter is at bedside and state she has seen quite an improvement in her speech since yesterday. She has mild right facial droop. Minimal weakness of the right side ext compared to the left. This biggest deficit is the expressive aphasia. She denies SOA, palp, CP. No N/V. Her mouth is dry. She denies any abdominal pain. Objective Vital signs: Temperature 97.9 F 02/09/18 07:00 Pulse Rate 96 02/09/18 07:00 Respiratory Rate 23 02/09/18 07:00 Blood Pressure 172/81 H 02/09/18 07:00 Pulse Oximetry 99 02/09/18 07:00 Height/Weight/BMI: Height 1.6 m Weight 59.9 kg Body Mass Index 23.7 Comments: Gen: alert and oriented. Work finding difficulties. Skin: warm and dry] HEENT: NC/AT PERRL, EOMI, Sclera, lids and conjunctiva wnl. Dry MM, OP clear Neck: supple, No JVD, Carotids 2+ without bruits Lungs: clear, No rales, rhonchi or wheezes CV: Irregular, slightly tachy. Tele Afib 90-110, soft 2/6 systolic murmur on the left sternal border Abd: soft, NT/ND, +BS. MS: ANTONIO, minimal weakness on the right side ext compared to the left. No edema Neuro: expressive aphasia, slight right facial droop. Psy: appropriate mood and affect. Results - Labs CBC & Chem 7: 02/09/18 03:51 02/09/18 03:51 Assessment and Plan Assessment and Plan: Assessment/Plan: Acute ischemic/thromboembolic CVA Right hemiparesis Dysarthria -MRI today -Carotid U/S completed, not read, tech reports no significant blockages -Echo completed, No read, Looks like EF 25-30%, Biatrial enlargement. Tiny pericardial effusion -Aspirin, statin -Consult Dr. Marroquin for his recommendations. (Dr. Dodson is out until 02/13/18) -ST/PT/OT -Tele -Neuro checks Atrial fibrillation -Will try digoxin for rate control -IV lopressor for SBP >180 until tomorrow and then start more aggressive treatment. Will try more selective BBl -I did discuss resuming OAC with pt and daughter. Her [id number] score is 8 making her high risk for subsequent strokes (Hasbled = 3, moderate risk for bleeding). Risks and benefits discussed. Hypertension -Will treat for SBP > 180 until tomorrow then start to lower BP more aggressively, using selective BBL CAD -H/O prox LAD stent found patent on HC in nov -No anginal symptoms CHF - chronic systolic -No evidence of volume overload at this time, continue to hold lasix. -Pt is NPO until swallow eval done -May need to resume diuretics in the near future. Cardiomyopathy with EF 25-30% -Start low dose selective BBL in the next day or so -Unable to use RUSSEL I or ARB due to "allergies" Valvular heart disease, MR, AI, -Contemporary [facility] Modern Dancer is Dr. Syed Pulmonary hypertension Hypothyroidism -(TSH 2.69 presently) Care to return to Dr. Sung on dismissal. - Physician Narrative Narrative: Date: 02/09/18 Time: 0810 Hospital Course Summary Disclaimer: The visit summary below is not to be considered part of the above Progress Note. Hospital Course: 02/08/18 Admit to CCU, Inpatient. Stay expected to exceed 2 overnights for monitoring, BP control, anticoagulation, etc. Consult Dr. Marroquin for his recommendations. (Dr. Dodson is out until 02/13/18). OT/PT/ST to assess functional status and work on rehabilitation. Neuro checks, NIH stroke scale assessments, telemetry. IVF's, echocardiogram. Start statin. Start ASA tomorrow evening - needing to hold for 24 to 48 hours after Activase. Avoid hypotension. Check lipids, magnesium, TSH, and repeat CBC and CMP in am. Care to return to Dr. Sung on dismissal.
[2018-02-09] MEDS: METOPROLOL 5mg/5ml INJECTION IVP PRN ×2 (08:59→18:05)
--- NOTE | 2018-02-09 08:59 | Ultrasound Report ---
Indication: CVA PROCEDURE: US carotid doppler BI: TECHNIQUE: Grayscale, color and duplex Doppler imaging was performed of the carotid systems bilaterally. Velocities in cm/sec - validated velocity measurements with angiographic measurements, velocity criteria are extrapolated from diameter data as defined by the Society of Radiologists in Ultrasound Consensus Conference Radiology 2003; 229;340-346. RIGHT: PSV ICA 64 EDV ICA 13.8 PSV CCA 37.1 EDV CCA 7.35 PSV ECA 84 ICA Diameter reduction less than 20% LEFT: PSV ICA 75.7 EDV ICA 18.6 PSV CCA 45.1 EDV CCA 12.5 PSV ECA 69.3 ICA Diameter reduction less than 20% The right vertebral artery is patent with cephalic flow. The left vertebral artery is patent with cephalic flow. IMPRESSION: No significant atherosclerotic plaque. No hemodynamically significant carotid stenosis. .
[2018-02-09] MEDS ORDERED: DIGOXIN 500 MCG/2 ML INJECTION IVP SCH (09:00)
[2018-02-09] MEDS: LIDOCAINE 1% INJ 10 MG, POTASSIUM CHLORIDE INJ 10 MEQ in NS 100 ML IV SCH ×3 (10:14→12:21)
[2018-02-09] MEDS: COENZYME Q-10 200mg TABLET PO SCH (10:14)
--- NOTE | 2018-02-09 11:06 | Magnetic Resonance Report ---
Indication: Stroke s/p TPA PROCEDURE: MR head/brain wo con: Encounter: Initial Comparisons: Head CT dated February 08, 2018 and brain MRI dated January 22, 2015 2018 Technique: Multiplanar, multisequence, MR imaging of the head without contrast was acquired. FINDINGS: Linear region of acute diffusion restriction in the left precentral gyrus. There is also a punctate focus of diffusion restriction in the left postcentral gyrus, also seen on axial diffusion images #18. No additional areas of acute diffusion restriction seen. Sequela of prior left cerebellar infarct with encephalomalacia. Old right occipital and left frontal lobe infarcts as well. These lesions have expected T2/FLAIR hyperintensity. Mild to moderate generalized atrophy. The ventricles are stable. There are small nonspecific punctate areas of T2-weighted and T2 FLAIR weighted signal abnormality in the deep frontoparietal white matter that most likely represent small vessel ischemic disease. This is of a degree that is considered to be normal for the patient's age. There is no evidence of an intracranial mass lesion, intracranial hemorrhage, or hydrocephalus. The visualized portions of the orbits, calvarium, paranasal sinuses, and skull base demonstrate no significant abnormality. IMPRESSION: Acute left MCA territory infarct involving the pre and postcentral gyri. No evidence of hemorrhagic transformation. .
[2018-02-09] MEDS: POTASSIUM CHLORIDE INJ 10 MEQ in NS 100 ML IV SCH (12:44)
[2018-02-09 17:03] VITALS: TEMP 97.8
[2018-02-09] MEDS ORDERED: ASPIRIN 325 MG TABLET PO SCH (17:30)
[2018-02-09] MEDS ORDERED: ASPIRIN 300 MG RECTAL SUPPOSITORY RECTALLY SCH (17:30)
[2018-02-09] MEDS ORDERED: AMLODIPINE 5 MG TABLET PO ONE (19:52)
[2018-02-09] MEDS: ROSUVASTATIN 20 MG TABLET PO SCH (20:13)
[2018-02-10] MEDS: NS 1,000 ML IV SCH (00:21)
[2018-02-10] MEDS ORDERED: ROSUVASTATIN 10 MG TABLET PO SCH (07:50)
--- NOTE | 2018-02-10 07:57 | Discharge Summary ---
Discharge Information Date of admission: 02/08/18 14:03 Anticipated date of discharge: 02/10/18 Attending Physician: Sofia Carrera MD Primary care physician: Irene Sung MD Consults: 02/09/18 IRU Screening [Inpatient Rehab Screening] [CONS] Routine Stroke-recurrent Atrial fibrillation-permanent HTN HLP Hypothyroid Cardiomyopathy Systolic heart failure-chronic, compensated - Laboratory Labs: 02/10/18 04:20 02/10/18 04:20 - Radiology Radiology: CT head 02/08/18 IMPRESSION: Interval evolution of prior infarcts in the left cerebellum, left frontal and right occipital lobes. No acute intracranial hemorrhage or definite new acute infarct. If there is continued clinical concern for acute ischemia, repeat MRI could be performed. Carotid doppler 02/09/18 IMPRESSION: No significant atherosclerotic plaque. No hemodynamically significant carotid stenosis. Brain MRI 02/09/18 IMPRESSION: Acute left MCA territory infarct involving the pre and postcentral gyri. No evidence of hemorrhagic transformation. History of Present Illness HPI: Patient is an 87 yo female who was recently hospitalized for a cardioembolic stroke involving multiple vascular territories. She went to [facility] rehab following her acute stay and was able to walk with a walker and perform most ADL 's. She was back at home living independently with her until today at 10am when she developed R sided weakness and couldn't talk. Her states she could still walk w/ her walker, but that she couldn't speak, so he knew something was wrong. She stopped her Eliquis and carvedilol within the past 2- 3 weeks due to s.e.'s. She wasn't sleeping well, had body aches and was getting progressively short of breath. She discussed going off of her meds with with her elastic yarn twister's midlevel and understood the risk of stroke should she go off of her medications. She felt the risk of possible stroke was worth it based on her poor quality of life while taking these medications. Her daughter reports that all of her s.e.'s had almost resolved and she was feeling the best she had in quite awhile after stopping the medications. In ER, she had a head CT showing interval evolution of prior infarcts but no acute intracranial hemorrhage or definite new acute infarct. She received a dose of 1mg lorazepam and 5mg hydralazine while in ER. Given her sxs and risk factors, she was a candidate for TPA and chose to go ahead with tx. TPA was infusing while I was seeing the pt in ER. Pt was unable to give any history due to her aphasia. All information was taken from pt's daughter, ER doctor and information on file from previous hospitalization. She is able to say "yes" when asked if she would like resuscitated in the event her heart should stop. Objective Vital signs: Temperature 97.8 F 02/09/18 16:30 Pulse Rate 77 02/10/18 05:01 Respiratory Rate 28 H 02/10/18 05:01 Blood Pressure 164/77 H 02/10/18 05:01 Pulse Oximetry 94 02/10/18 05:01 Rhythm: Atrial Fibrillation with Normal Ventricular Rate Height/Weight/BMI: Height 1.6 m Weight 59.9 kg Body Mass Index 23.7 Comments: Gen: alert and oriented. NAD. Speech is better, less word finding difficulty Skin: warm and dry HEENT: NC/AT PERRL, EOMI, Sclera, lids and conjunctiva wnl. MMM, OP clear Neck: supple, No JVD, Carotids 2+ without bruits Lungs: clear, No rales, rhonchi or wheezes CV: Irregular, Tele Afib, soft 2/6 systolic murmur on the left sternal border Abd: soft, NT/ND, +BS. MS: ANTONIO, minimal weakness on the right UE compared to the left. No edema Neuro: mild expressive aphasia, slight right facial droop. Psy: appropriate mood and affect. Hospital Course This is a general summary of the patient's hospital course. For more details refer to the complete medical record. Hospital course: Ms Mckeon was admitted on 02/08/18 with acute and new onset word finding difficulties and right-sided weakness. She had recently sustained a cardio embolic stroke involving multiple territories in November. She went to the rehab here and was ultimately discharge back to home living with her . On the day of admission here she developed right-sided weakness and was unable to speak. Of note she had stopped her eloquence couple of weeks ago due to weakness, shortness of breath, and muscle aches and pains. This did not seem to help so her carvedilol was also discontinued approximately a week later. Ultimately she did improve and was feeling quite well up until the day of admission. She was able to walk with her walker and perform most of her ADLs. In the ER there were no acute changes on a CT scan. She did qualify for TPA and that was administered in the ER. She was subsequently admitted to the ICU. Subsequent MRI however did show acute left MCA territory infarct involving the pre-and post central gyri. On the day of discharge to the rehab facility her word finding difficulties for improving. She had only mild weakness of the right upper extremity without any significant weakness in the right lower extremity compared to the left. Her blood pressure medications were adjusted. I did have a long talk with the daughter about resuming oral anticoagulation for her atrial fibrillation. If they wish to resume that to prevent further strokes then we can start that as it has been over 24 hours since her TPA. The patient underwent a speech bowel and it was recommended that she have thickened liquids and pured food. Her diet was then resumed with those parameters. Rehab was consult attended except the patient and she was felt to be stable to transfer to rehab today. We will continue to follow her there. Time spent with patient: 25 - 35 minutes Resuscitation Status: Full Code Discharge Plan - Discharge Disposition Disposition: 60 To [facility] INPT Rehab *Condition: Stable Reason For Visit (Visit label in EMR): aphasia, R side weakness, acute stroke - Discharge Medications *Discharge Medications: New Acetaminophen [Tylenol] 650 mg PO Q5H PRN tab PRN Reason: Discomfort Aspirin [ASA] 325 mg PO DAILY tab Bisacodyl Supp [Dulcolax] 10 mg RECTALLY DAILY PRN suppositor PRN Reason: Constipation Coenzyme Q-10 [Co Q-10] 200 mg PO DAILY tab Digoxin [Lanoxin] 125 mcg PO DAILY tab Furosemide [Lasix 20 mg Tab] 20 mg PO DAILY tab Hydralazine [Apresoline] 25 mg PO TIDWM tab Metoprolol Tartrate [Lopressor] 50 mg PO BIDWM tab Milk of Magnesia [Mom] 30 ml PO DAILY PRN udc PRN Reason: Constipation Potassium Chloride [K-DUR 20 mEq Tablet] 20 meq PO WB tab Rosuvastatin [Crestor] 10 mg PO HS tab Discontinued Furosemide [Lasix 40 mg Tab] 40 mg PO PRN - Discharge Packet/Instructions *Diet: Pureed with thickened liquids. Cardiac *Activity: Progressive rehab *Pain Management/Treatment: Tylenol *Wound Care: N/A *Expected Signs/Symptoms: N/A *Notify Physician if: N/A *During Business Hours Contact: N/A *After Business Hours Contact: N/A *Pending Lab/Results: No Pending Lab - IRU/GEN Discharge/Transfer - Referrals/Follow Up *Referrals/Follow Up: Irene Sung MD [Primary Care Provider] - - Patient Handouts - Dismissal Complete Discharge Instructions are:: Complete Physician Narrative - Narrative Attestation Narrative: Date: 02/10/18 Time: 8011
[2018-02-10] MEDS ORDERED: ASPIRIN 325 MG TABLET PO SCH (09:00)
[2018-02-10] MEDS ORDERED: DIGOXIN 125 MCG TABLET PO SCH (09:00)
[2018-02-10] MEDS ORDERED: FUROSEMIDE 20 MG TABLET PO SCH (09:00)
[2018-02-10] MEDS: COENZYME Q-10 200mg TABLET PO SCH (09:25)
[2018-02-10] MEDS: HYDRALAZINE 25 MG TABLET PO SCH ×2 (09:25→13:45)
[2018-02-10 10:13] VITALS: BP 164/121; RESP 32; O2SAT 98
[2018-02-10 13:09] VITALS: PULSE 67
--- NOTE | 2018-02-11 08:53 | Echocardiogram ---
DATE OF SERVICE 02/08/2018 INDICATION Stroke, atrial fibrillation. TECHNICAL QUALITY Technically good 2-D, M-mode, Doppler echocardiographic images were submitted for interpretation. FINDINGS 1. CARDIAC CHAMBERS. Biatrial enlargement is present. Left ventricle is normal in size, measured 4.7 cm. RV size and contractility appear normal. Aortic root diameter is normal. 2. LEFT VENTRICLE. Analysis reveals borderline concentric LVH. Posterior wall measured 11 mm. Septal wall measured 13 mm. Wall motion analysis is abnormal. The best moving segments are seen in the anteroseptum, and the inferolateral wall appears akinetic and somewhat thinned out suggestive of a scar. The anterior-anterolateral wall contractility appears preserved. Inferior- inferoseptal wall appear severely hypokinetic to akinetic. Findings of significant ischemic cardiomyopathy. Ejection fraction measured 28% and visually estimated about 30%. On careful evaluation I don't see any clots in the left ventricle or left atrium. Diastolic function assessment was not performed. 3. VALVES. Aortic valve exhibits moderate sclerosis and calcification. Valve opening appears preserved. Mitral valve exhibits annular calcification, limited sclerosis. Valve excursion is normal. Tricuspid valve structure and motion appear normal. Normal valve excursion. 4. DOPPLER. Moderate aortic insufficiency. Mild to moderate mitral insufficiency. Mild tricuspid insufficiency. Mild pulmonic insufficiency. 5. Minimal pericardial effusion is present without tamponade. Bubble study was not performed. No demonstrable intracardiac shunts on color-flow Doppler. Underlying atrial fibrillation is present. IMPRESSION 1. Biatrial enlargement, left greater than right. 2. No evidence of intracardiac thrombus. 3. Patient is in underlying atrial fibrillation. 4. Severe ischemic cardiomyopathy, ejection fraction of about 30-35%. 5. Mild concentric LVH. 6. Moderate aortic regurgitation. 7. Mild to moderate mitral regurgitation. 8. Mild tricuspid regurgitation. 9. Mild pulmonic insufficiency. 10. Mild pulmonary hypertension. Systolic PA pressure is estimated at 45 mmHg. MTDD
== END 2018-02-10 14:00 | DRG 62 ==
LOC: ED 11:32 → SUATTDRO 14:03 → CCU 14:03
PROVIDERS: ADMIT Hospitalist; ATTEND Internal Medicine Cardiovascular Disease

== ENCOUNTER 2018-02-10 14:04 | Inpatient (IN) ==
[2018-02-10 14:43] VITALS: BMI 22.7
[2018-02-10] MEDS ORDERED: ACETAMINOPHEN 325 MG TABLET PO PRN (14:50)
[2018-02-10] MEDS ORDERED: BISACODYL 10 MG SUPPOSITORY RECTALLY PRN (14:50)
--- NOTE | 2018-02-10 14:52 | IRU History & Physical Report ---
HPI IRU Date: Date: 02/10/18 Time: 1448 HPI: 87-year-old female presents with CVA causing severe right-sided weakness and inability to speak. She has recently stopped all of her medications due to side effects and these medications included control for atrial fibrillation as well as blood thinner. She did have a previous CVA December 01 with some residual left-sided weakness. This CVA onset approximately 10 AM she stood up from a chair and had confusion, her noticing that she just of there and stare blankly. She had immediate onset of right-sided weakness with inability to speak. She was seen through the emergency department and neurology recommended alteplase. This was given IV and patient had significant recovery. She was admitted to ICU. Blood pressure management still been an issue as as rate control. See medical H&P and discharge summary for more history of medications. At this time she is attempting to use right leg with supportive walker and is using right arm and gross movements. Still has significant loss of fine motor control and difficulty with speaking as well as some difficulty with swallowing. [facility] Patient Stated Medical History Cerebrovascular Accident Yes: 11/30/2017 Cataracts Yes: previous cataract surgery Hearing Loss Yes: hearing aids Cardiac Arrhythmia Yes: a fib Coronary Artery Disease Yes Hypertension Yes Valvular Heart Disease Yes Constipation Yes: takes prune juice at home Hiatal Hernia Yes Hx Incontinence No Shingles Yes Clinic Medical History (Last Updated 02/08/18 @ 13:20 by JUANCHO Fan) CHF (congestive heart failure) (Acute Medical) Valvular heart disease (Acute Medical) Pulmonary hypertension (Acute Medical) Cardiomyopathy (Acute Medical) CAD (coronary artery disease) (Acute Medical) Atrial fibrillation (Acute Medical) Hypothyroidism (Chronic Medical) Hypertension (Chronic Medical) Tetanus (Resolved Medical) Surgical History: *Dental work with dentures age 13. *Bilateral Cataract Removal. *Cholecystectomy 1988. *Appendectomy age 13. *Total Abdominal Hysterectomy. BSO. Bladder "pinned" up. Cardiac stent placed Family History: Family History (Last Updated 12/01/17 @ 11:56 by Barbara Sousa MD) Brother Heart problem Father Ruptured, esophagus Mother Stroke Sister Atrial fibrillation Sister Atrial fibrillation Family History Updates: Brother- cardiac disease. Father-"ruptured esophagus". Mother- CVA. Sister-Atrial fibrillation - Social History Smoking status: Never smoker second hand exposure: Yes Substance use type: does not use Alcohol intake: never Alcohol intake frequency: does not drink Housing: house Household members: spouse Current occupational status: retired Current residence: Apartment/Private Home Review of Systems Comprehensive ROS: completed and no additional positive findings except those as stated Medications Home Medications Medication Instructions Recorded Confirmed Type Acetaminophen [Tylenol] 650 mg PO Q5H PRN tab 02/10/18 Rx Aspirin [ASA] 325 mg PO DAILY tab 02/10/18 Rx Bisacodyl Supp [Dulcolax] 10 mg RECTALLY DAILY PRN 02/10/18 Rx suppositor Coenzyme Q-10 [Co Q-10] 200 mg PO DAILY tab 02/10/18 Rx Digoxin [Lanoxin] 125 mcg PO DAILY tab 02/10/18 Rx Furosemide [Lasix 20 mg Tab] 20 mg PO DAILY tab 02/10/18 Rx Hydralazine [Apresoline] 25 mg PO TIDWM tab 02/10/18 Rx Metoprolol Tartrate [Lopressor] 50 mg PO BIDWM tab 02/10/18 Rx Milk of Magnesia [Mom] 30 ml PO DAILY PRN udc 02/10/18 Rx Potassium Chloride [K-DUR 20 mEq 20 meq PO WB tab 02/10/18 Rx Tablet] Rosuvastatin [Crestor] 10 mg PO HS tab 02/10/18 Rx Allergies Allergy/AdvReac Type Severity Reaction Status Date / Time losartan Allergy Severe Anaphylactic Verified 02/08/18 12:36 Shock Tetanus Vaccines and Toxoid Allergy Severe PT HAS HAD Verified 02/08/18 12:36 THE DISEASE Sulfa (Sulfonamide Allergy Mild RASH Verified 02/08/18 12:36 Antibiotics) amiodarone Allergy Unknown Verified 02/08/18 12:36 lisinopril AdvReac Cough Verified 02/08/18 12:36 Results IRU - Labs Labs: Labs reviewed Exam Vital Signs: Temperature 97.6 F 02/10/18 14:12 Pulse Rate 80 02/10/18 14:12 Respiratory Rate 22 02/10/18 14:12 Blood Pressure 152/78 H 02/10/18 14:12 Pulse Oximetry 95 02/10/18 14:12 Height/Weight/BMI: Height 1.63 m Weight 60.1 kg Body Mass Index 22.7 - Constitutional Present: no acute distress - Routine HEENT Exam Head: Present: normocephalic Eye: Present: EOMI, PERRL ENT: Present: mucous membranes moist - Routine Respiratory Exam Present: CTA bilaterally. Absent: wheezes, crackles - Routine Cardiovascular Exam Present: no murmur, irregular rhythm - Routine Abdominal Exam Present: soft, normoactive bowel sounds, non distended, non tender - Routine Extremities Exam Absent: cyanosis, clubbing, edema - Routine Skin Exam Present: intact - Routine Neurological Exam Present: alert, oriented X3, CN II-XII intact DTRs slightly diminished right upper extremity, other extremities 2+ DTRs. Sensory intact in all extremities. Gross strength 4+ out of 5 right lower extremity and 4+ out of 5 right upper extremity. Left side 5 out of 5 strength. Patient does have loss of fine motor control in the right upper extremity with difficulty touching fingertips to thumb with any degree of accuracy. Speech is still limited with single word speech and some difficulty with articulation. IRU A/P (1) Right-sided muscle weakness Current visit: Yes Status: Acute PT OT consult. (2) Hypertensive heart disease Current visit: No Status: Acute Management by hospitalist. (3) Gait instability Problem details: With fall Current visit: No Status: Acute PT and OT consult. (4) Atrial fibrillation with rapid ventricular response Current visit: No Status: Chronic Hospitalist management. (5) Stroke due to embolism Qualifiers: Precerebral and cerebral artery: middle cerebral artery Laterality of affected vessel: left Qualified Code(s): I63.412 - Cerebral infarction due to embolism of left middle cerebral artery Problem details: Multifocal areas of acute infarct involving left cerebellum, right occipital lobe, and left frontal lobe. Current visit: No Status: Acute Post CVA treatment per hospitalist. (6) Dysphagia due to recent cerebrovascular accident (CVA) Current visit: Yes Status: Acute Speech therapy consult. Mechanical soft diet. (7) Aphasia due to acute cerebrovascular accident (CVA) Current visit: Yes Status: Acute Speech therapy consult. DVT Prophylaxis: Eliquis Resuscitation Status: Full Code - Course Hospital Course: J Carlos Og MD: - Interventions to Obtain Goals PT Treatment Plan: Balance/Proprioception, Functional Activities, Gait Training , Manual Therapy, Sensory Integration, Therapeutic Exercise OT Treatment Plan: ADL (Basic Care), Balance Training, Communication, Perception Training, Sensory Integration, Ther. Exercise for ADL
--- NOTE | 2018-02-10 15:04 | IRU 24Hr Post Admit Eval ---
24 Hr Post Admission Physical - Relevant Changes Relevant Changes: No Reviewed: I have reviewed the patient's information and concur with the finding and results of the pre-admission screen. Certification: I certify the patient for rehabilitation. - Patient Condition (1) Right-sided muscle weakness Onset Date: ~02/08/18 Status: Acute Code(s): M62.81 - Muscle weakness ( generalized) (2) Hypertensive heart disease Onset Date: Unknown Status: Acute Code(s): I11.9 - Hypertensive heart disease without heart failure (3) Gait instability Onset Date: ~02/08/18 Status: Acute Code(s): R26.81 - Unsteadiness on feet Classification: Present on IRF Admission, IRF Tx That Should Address Diagnosis (4) Atrial fibrillation with rapid ventricular response Status: Chronic Code(s): I48.91 - Unspecified atrial fibrillation Classification: Present on IRF Admission, Diagnosis Requiring Medical Follow Up (5) Stroke due to embolism Status: Acute Qualifiers: Precerebral and cerebral artery: middle cerebral artery Laterality of affected vessel: left Qualified Code(s): I63.412 - Cerebral infarction due to embolism of left middle cerebral artery Code(s): I63.9 - Cerebral infarction, unspecified Classification: Present on IRF Admission, IRF Tx That Should Address Diagnosis, Diagnosis Requiring Medical Follow Up (6) Dysphagia due to recent cerebrovascular accident (CVA) Onset Date: ~02/08/18 Status: Acute Code(s): I69.391 - Dysphagia following cerebral infarction Classification: Present on IRF Admission, IRF Tx That Should Address Diagnosis (7) Aphasia due to acute cerebrovascular accident (CVA) Onset Date: ~02/08/18 Status: Acute Code(s): I63.9 - Cerebral infarction, unspecified; R47.01 - Aphasia Classification: Present on IRF Admission, IRF Tx That Should Address Diagnosis - Prior Functional Status Lives With: Significant Other Residence Type: Apartment/Private Home Assitive Devices: None Prior Functional Status: Indep. at home or school - Current Functional Status Current Level of Function: Severe limitation due to aphasia, dysphagia, right-sided weakness. Difficulty controlling retention due to patient's noncompliance and discontinuation of medication. Failed Alternative Therapy: Arrived from Acute Care Patient Requirements: The patient requires oversight by rehabilitation physician to manage their rehabilitation treatment plan and multidisciplinary approach to care that can only be provided in an IRF and requires a multidisciplinary approach to care, provided by professional PTs, OTs, STs, dieticians, RTs, rehabilitation nurses and is not available in lesser levels of care. Limitations Req: Mobility Impairment, ADL Impairment Speech Therapy Minutes: 60 Physical Therapy Minutes: 60 Occupational Therapy Minutes: 60 Therapy: The patient is to receive therapy at least [address] Treatment Plan: Swallow Retraining/Exercises, Swallow Precautions, Modified Diet, Voice Retraining, Communication Retraining ST Treatment Plan Frequency: Five Times Per Week ST Treatment Plan Duration: Two Weeks ROM Deficit: Right Upper Extremity, Right Lower Extremity ROM Comment: Range of motion deficit due to weakness - Complications/Comorbidities Impact on Functional Outcomes: Patient may have permanent dysfunction due to weakness and difficulty with speech and swallow. However she should have significant improvement in these deficits with admission to IRU Barriers to Discharge: Weakness, Balance, Endurance, Medical Limitation - Impact of Co-morbidities on function Recovery will be more complicated due to comorbidities such as atrial fibrillation, hypertension and sensitivity to medications. - Plan to Avoid Complications Plan to Avoid Complications: The patient cannot receive this care in a lesser intensive setting such as Custodial or Outpatient Therapy due to the patient requiring the following close supervision of hypertension and atrial fibrillation.
[2018-02-10] MEDS: HYDRALAZINE 25 MG TABLET PO SCH (17:57)
[2018-02-10] MEDS ORDERED: ROSUVASTATIN 10 MG TABLET PO SCH (21:00)
[2018-02-10] MEDS: APIXABAN 2.5 MG TABLET PO SCH (21:09)
[2018-02-10] MEDS: MELATONIN 5 MG TABLET PO PRN (23:54)
[2018-02-11] MEDS: HYDRALAZINE 25 MG TABLET PO SCH ×3 (08:49→17:44)
[2018-02-11] MEDS: DIGOXIN 125 MCG TABLET PO SCH (08:50)
[2018-02-11] MEDS: APIXABAN 2.5 MG TABLET PO SCH ×2 (08:50→20:03)
[2018-02-11] MEDS: COENZYME Q-10 200mg TABLET PO SCH (08:50)
[2018-02-11] MEDS: FUROSEMIDE 20 MG TABLET PO SCH (08:51)
--- NOTE | 2018-02-11 08:53 | Consult Note ---
Consult Information - Data of Consult Consult date: 02/11/18 Requesting Physician: Obdulio Lyles MD Primary Care Provider: Irene Sung MD - Consult Narrative History of present illness: Deyanira Mckeon is seen in consultation from Dr. Og for medical management of recurrent stroke, A-fib, HTN. She had recently sustained a cardio embolic stroke involving multiple territories in November. After she spent time in IRU recovering, she was able to return home with her . She elected to stop Eliquis for fear it was causing weakness, SOA, and muscle aches. She was readmitted on 02/08/18 to [facility] with acute and new onset word finding difficulties and right-sided weakness. She qualified for tPA and was admitted to the CCU. Subsequent MRI revealed acute left MCA territory infarct involving the pre-and post central gyri. BP meds were adjusted and she was restarted on Eliquis. Her aphasia was improving and speech therapy recommended thickened liquids and pured food. She was discharged to IRU on 02/10/18. Deyanira was seen in her room on 02/11/18. She had expressive aphasia but followed directions. She had difficulty answering some questions, but was able to answer with yes/no responses and occasional phrases. ROS was negative except for stroke symptoms as mentioned. Her nurse reports that she had difficulty sleeping and was given Benadryl and Melatonin last night. She ultimately slept about 2 hours. Past Medical History Medical History: Medical History (Last Updated 02/08/18 @ 13:20 by JUANCHO Fan) CHF (congestive heart failure) (Acute) Valvular heart disease (Acute) Pulmonary hypertension (Acute) Cardiomyopathy (Acute) CAD (coronary artery disease) (Acute) Atrial fibrillation (Acute) Hypothyroidism (Chronic) Hypertension (Chronic) Tetanus Medical History Updates: cardiomyopathy with EF 25-30%. pulmonary hypertension Surgical History: *Dental work with dentures age 13. *Bilateral Cataract Removal. *Cholecystectomy 1988. *Appendectomy age 13. *Total Abdominal Hysterectomy. BSO. Bladder "pinned" up. Cardiac stent placed Family History: Family History (Last Updated 12/01/17 @ 11:56 by Barbara Sousa MD) Brother Heart problem Father Ruptured, esophagus Mother Stroke Sister Atrial fibrillation Sister Atrial fibrillation Family History: As Above - Social History Smoking status: Never smoker Substance use type: does not use Alcohol intake frequency: does not drink Current residence: Apartment/Private Home Review of Systems ROS unobtainable: other (limited by expressive aphasia) All systems PM: 10-point ROS was reviewed, no additional remarkable complaints except Medications Home Medications Medication Instructions Recorded Confirmed Type Acetaminophen [Tylenol] 650 mg PO Q5H PRN tab 02/10/18 02/10/18 Rx Aspirin [ASA] 325 mg PO DAILY tab 02/10/18 02/10/18 Rx Bisacodyl Supp [Dulcolax] 10 mg RECTALLY DAILY PRN 02/10/18 02/10/18 Rx suppositor Coenzyme Q-10 [Co Q-10] 200 mg PO DAILY tab 02/10/18 02/10/18 Rx Digoxin [Lanoxin] 125 mcg PO DAILY tab 02/10/18 02/10/18 Rx Furosemide [Lasix 20 mg Tab] 20 mg PO DAILY tab 02/10/18 02/10/18 Rx Hydralazine [Apresoline] 25 mg PO TIDWM tab 02/10/18 02/10/18 Rx Metoprolol Tartrate [Lopressor] 50 mg PO BIDWM tab 02/10/18 02/10/18 Rx Milk of Magnesia [Mom] 30 ml PO DAILY PRN udc 02/10/18 02/10/18 Rx Potassium Chloride [K-DUR 20 mEq 20 meq PO WB tab 02/10/18 02/10/18 Rx Tablet] Rosuvastatin [Crestor] 10 mg PO HS tab 02/10/18 02/10/18 Rx Allergies Allergy/AdvReac Type Severity Reaction Status Date / Time losartan Allergy Severe Anaphylactic Verified 02/08/18 12:36 Shock Tetanus Vaccines and Toxoid Allergy Severe PT HAS HAD Verified 02/08/18 12:36 THE DISEASE Sulfa (Sulfonamide Allergy Mild RASH Verified 02/08/18 12:36 Antibiotics) amiodarone Allergy Unknown Verified 02/08/18 12:36 lisinopril AdvReac Cough Verified 02/08/18 12:36 Exam Vital Signs: Temperature 97.4 F 02/10/18 19:58 Pulse Rate 78 02/10/18 19:58 Respiratory Rate 12 02/10/18 19:58 Blood Pressure 155/73 H 02/10/18 19:58 Pulse Oximetry 94 02/10/18 19:58 Height/Weight/BMI: Height 1.63 m Weight 60.1 kg Body Mass Index 22.7 - Constitutional Present: no acute distress, well nourished, well developed, thin - Routine HEENT Exam Head: Present: normocephalic Eye: Present: PERRL. Absent: conjunctival icterus, scleral injection ENT: Present: oropharynx clear - Routine Neck Exam Present: supple. Absent: lymphadenopathy - Routine Respiratory Exam Present: CTA bilaterally - Routine Cardiovascular Exam Present: murmur (2/6), irregularly irregular - Routine Abdominal Exam Present: soft, normoactive bowel sounds, non distended, non tender - Routine Extremities Exam Present: no edema, pulses intact - Routine Skin Exam Present: intact, dry, warm - Routine Neurological Exam Present: alert, motor deficit (RUE 4/5 compared to 5/5 on left), moving all extremities, vision grossly intact, hearing grossly intact. Absent: CN II-XII intact (mild right facial droop), normal speech (expressive aphasia) - Routine Psychiatric Exam Present: normal affect, normal thought process, cooperative Results - Labs CBC & Chem 7: 02/11/18 10:03 Assessment and Plan (1) Stroke due to embolism Problem details: 12/02/17 Multifocal areas of acute infarct involving left cerebellum, right occipital lobe, and left frontal lobe. 02/09/18 Acute left MCA territory infarct involving the pre and postcentral gyri. No evidence of hemorrhagic transformation Current visit: No Status: Acute (2) Aphasia due to acute cerebrovascular accident (CVA) Current visit: Yes Status: Acute Assessment and Plan: Assessment Stroke-recurrent Atrial fibrillation-permanent HTN HLP Hypothyroid Cardiomyopathy with EF 25-30% Systolic heart failure-chronic, compensated Pulmonary HTN Plan Stroke; A-fib -cont Eliquis, statin. -PT/OT/ST per attending. -Consult Dr. Marroquin when he's available (02/13) HTN, Systolic CHF -Lasix on hold - no evidence of fluid overload currently -continue metoprolol -echo report pending Electrolyte abnormalities -Hypernatremia and low-normal K on labs yesterday -repeat today Thank you for this consult. DVT Prophylaxis: Eliquis Resuscitation Status: Full Code - Physician Narrative Physician: Sofia Carrera MD Narrative: Date: 02/11/18 Time: 1516 Ms. Mckeon was independently interviewed and examined by me. She is doing much better. I asked her to say "this is going to be a great day" and she did this with very little complication. She is happy unpleasant this morning. She denies sleep well despite being given Benadryl and melatonin last night. She denies any complaints to me this morning. Physical Exam: Gen: alert and oriented. Word finding difficulties are improving Skin: warm and dry HEENT: NC/AT PERRL, EOMI, Sclera, lids and conjunctiva wnl. Dry MM, OP clear Neck: supple, No JVD, Carotids 2+ without bruits Lungs: clear, No rales, rhonchi or wheezes CV: Irregular, slightly tachy. Tele Afib 90-110, soft 2/6 systolic murmur on the left sternal border Abd: soft, NT/ND, +BS. MS: ANTONIO, minimal weakness on the right side ext compared to the left. No edema Neuro: expressive aphasia, slight right facial droop. Psy: appropriate mood and affect. A/P: Stroke due to embolism -12/02/17 Multifocal areas of acute infarct involving left cerebellum, right occipital lobe, and left frontal lobe. -02/09/18 Acute left MCA territory infarct involving the pre and postcentral gyri. No evidence of hemorrhagic transformation -On low dose ASA, eliquis 2.5 mg BID, Statin -PT/OT/ST per attending. -Consult Dr. Marroquin when he's available (02/13) Aphasia due to acute cerebrovascular accident (CVA) -Speech therapy Atrial fibrillation-permanent -Back on OAC -Metoprolol and digoxin for rate control -Biatrial enlargement HTN -Metoprolol and hydralazine -Adjust as needed HLP -On statin Hypothyroid -On levothyroxine Cardiomyopathy with EF 30-35% -On metoprolol -Did not tolerate coreg, unable to treat with RUSSEL I (cough) or ARB (anaphylaxis) Systolic heart failure-chronic -compensated -Home lasix on hold Pulmonary HTN-PAP 45mmHg -May need back on home dose lasix at some point VHD -Moderate AI, mild to mod MR, Mild TR, mild PI Electrolyte abnormalities -Hypernatremia-resolved -Hypokalemia-replace and repeat lab Prophylaxis -Eliquis The patient was discussed with Myla Hernandez APRN. The assessment and plan was developed in conjunction with her and I agree with what is documented above. Hospital Course Summary Disclaimer: The visit summary below is not to be considered part of the above Progress Note. Hospital Course: 02/11/18 Stroke; A-fib -cont Eliquis, statin. -PT/OT/ST per attending. -Consult Dr. Marroquin when he's available (02/13) HTN, Systolic CHF -Lasix on hold - no evidence of fluid overload currently -continue metoprolol -echo report pending Electrolyte abnormalities -Hypernatremia and low-normal K on labs yesterday -repeat today
[2018-02-11] MEDS: ASPIRIN 81 MG CHEWABLE TABLET PO SCH (08:54)
[2018-02-11] MEDS ORDERED: FALL RISK - PHARMACY CONSULT MC ONE (14:14)
--- NOTE | 2018-02-11 15:53 | IRU Plan of Care ---
[facility] Overall Plan of Care - Date Date: 02/11/18 - Patient Impairments (1) Stroke due to embolism Qualifiers: Precerebral and cerebral artery: middle cerebral artery Laterality of affected vessel: left Qualified Code(s): I63.412 - Cerebral infarction due to embolism of left middle cerebral artery Code(s): I63.9 - Cerebral infarction, unspecified Status: Acute Classification: Present on IRF Admission, IRF Tx That Should Address Diagnosis, Diagnosis Requiring Medical Follow Up (2) Aphasia due to acute cerebrovascular accident (CVA) Code(s): I63.9 - Cerebral infarction, unspecified; R47.01 - Aphasia Status: Acute Classification: Present on IRF Admission, IRF Tx That Should Address Diagnosis (3) Atrial fibrillation Qualifiers: Atrial fibrillation type: permanent Qualified Code(s): I48.2 - Chronic atrial fibrillation Code(s): I48.91 - Unspecified atrial fibrillation Status: Chronic Classification: Present on IRF Admission, IRF Tx That Should Address Diagnosis, Diagnosis Requiring Medical Follow Up (4) Hypertension Qualifiers: Hypertension type: essential hypertension Qualified Code(s): I10 - Essential (primary) hypertension Code(s): I10 - Essential (primary) hypertension Status: Chronic Classification: Present on IRF Admission, IRF Tx That Should Address Diagnosis, Diagnosis Requiring Medical Follow Up - Relevant Changes Relevant Changes: No Reviewed: I have reviewed the patient's information and concur with the finding and results of the pre-admission screen. Certification: I certify the patient for rehabilitation. - Medical Prognosis Medical Prognosis: Fair Vital Signs: Last Vital Signs Temp 97.7 F 02/11/18 09:00 Pulse 79 02/11/18 12:00 Resp 16 02/11/18 09:00 BP 133/71 02/11/18 12:00 Pulse Ox 97 02/11/18 09:00 - Anticipated Interventions Anticipated Interventions: The patient requires inpatient IRF care for PT, OT, and/or ST for residuals remaining from acute left hemispheric embolic CVA resulting in muscular weakness and strength deficits. Strength Deficits: Right Upper Extremity, Right Lower Extremity - Current Functional Status Failed Alternative Therapy: Arrived from Acute Care Patient Requires: The patient requires oversight by rehabilitation physician to manage their rehabilitation treatment plan and multidisciplinary approach to care that can only be provided in an IRF and requires a multidisciplinary approach to care, provided by professional PTs, OTs, STs, rehabilitation nurses, and may require STs, dieticians, and RTS. This is not available in lesser levels of care. Speech-Language Pathology Minutes: 60 Physical Therapy Minutes: 60 Occupational Therapy Minutes: 60 Therapy: The patient is to receive therapy at least [address] Treatment Plan: Swallow Retraining/Exercises, Swallow Precautions, Modified Diet, Communication Retraining ST Treatment Plan Duration: Two Weeks ST Treatment Plan Frequency: Five Times Per Week - Anticipated LOS/Outcomes Anticipated Functional Outcome: It is anticipated that the patient will be able to return home with the assistance of her family for ADL's. She will likely be able to transfer from bed to chair with minimum assistance. It is anticipated that her blood pressure and atrial fib will be controlled. Anticipated Length of Stay (days): 21 Anticipated DC Destination: Home, Self Care, Home Health Service Home Safety Plan: The patient will be provided with the development of a Home Safety Plan for return to a home or home-like environment and and to ensure safety post discharge. - Plan to Avoid Complications Barriers to Attaining Goals: Weakness, Endurance, Medical Limitation Plan to Avoid Complications: The patient cannot receive this care in a lesser intensive setting such as Long-Term or Outpatient Therapy due to the patient requiring the following : This patient requires a coordinated, multidisciplinary approach to her recovery with the involvement of ST, PT and OT along with 24 hour nursing monitoring of her BP, neurologic status and atrial fib/CHF. She requires medical supervision of the multiple medical problems.
[2018-02-11] MEDS: ROSUVASTATIN 10 MG TABLET PO SCH ×2 (16:12→20:03)
[2018-02-11] MEDS: MELATONIN 5 MG TABLET PO PRN (20:04)
[2018-02-12] MEDS: DIGOXIN 125 MCG TABLET PO SCH (08:33)
[2018-02-12] MEDS: APIXABAN 2.5 MG TABLET PO SCH ×2 (08:34→20:48)
[2018-02-12] MEDS: COENZYME Q-10 200mg TABLET PO SCH (08:34)
[2018-02-12] MEDS: FUROSEMIDE 20 MG TABLET PO SCH (08:34)
[2018-02-12] MEDS: HYDRALAZINE 25 MG TABLET PO SCH ×3 (08:34→17:19)
[2018-02-12] MEDS: ASPIRIN 81 MG CHEWABLE TABLET PO SCH (08:34)
[2018-02-12] MEDS: MELATONIN 5 MG TABLET PO PRN (20:48)
[2018-02-12] MEDS: ROSUVASTATIN 10 MG TABLET PO SCH (20:49)
[2018-02-13] MEDS: APIXABAN 2.5 MG TABLET PO SCH ×2 (08:15→20:50)
[2018-02-13] MEDS: HYDRALAZINE 25 MG TABLET PO SCH ×3 (08:15→17:28)
[2018-02-13] MEDS: COENZYME Q-10 200mg TABLET PO SCH (08:15)
[2018-02-13] MEDS: FUROSEMIDE 20 MG TABLET PO SCH (08:15)
[2018-02-13] MEDS: DIGOXIN 125 MCG TABLET PO SCH (08:15)
[2018-02-13] MEDS: ASPIRIN 81 MG CHEWABLE TABLET PO SCH (08:16)
--- NOTE | 2018-02-13 11:36 | IRU Progress Note ---
- Subjective/Serverity of Illness Date: 02/13/18 Ms. Mckeon was interviewed and examined in the gymnasium area on acute inpatient rehabilitation. Therapist and patient daughter were present. She had been on carvedilol (I believe) as well as Eliquis as an outpatient. However she developed quite a few side effects from that including excessive sleepiness. For this reason the patient stopped both of those medications. She does have history of previous cardioembolic stroke and was aware of risks of subsequent stroke if she stopped the Eliquis. The patient was at her home on 02/08/2018. noted that she suddenly could not speak. She was able to ambulate but could not speak so he knew something was wrong. She was brought to the emergency department at [facility]. At that location, she was felt to be a candidate for TPA which was given. This apparently did improve her signs and symptoms considerably. Subsequent MRI has demonstrated left middle cerebral artery acute infarction without hemorrhagic transformation. Functional deficits have included right upper extremity fine motor movement reduction, right lower extremity weakness, difficulty swallowing/dysphagia, dysphasia with patient able to speak only a few words. However she is awake and alert. Prior to this, the patient did walk with a walker but was otherwise fairly self-sufficient at home. She was able to care for herself with family assisting at times. As noted, she did suffer a previous cardioembolic stroke in November 2017 approximately. She has a history of atrial fibrillation with rapid ventricular response. Also has a history of cardiomyopathy of an ischemic nature with ejection fraction around 30% on recent echocardiogram. While on acute, Eliquis was restarted. Carotids were negative by Doppler on . Echocardiogram on 02/08/2018 demonstrated no intracardiac clot although presence of markedly reduced ejection fraction at 30-35%. The patient has sustained multiple functional deficits and is currently on acute inpatient rehabilitation for PT, OT and speech therapy. Medical issues we have identified that we are actively monitoring and managing are as follows: 1. Acute left middle cerebral artery embolic stroke, status post TPA with multiple functional deficits as described above. 2. Atrial fibrillation with episodes of rapid ventricular response. Patient is now on Eliquis. We are monitoring for evidence of bleeding or hemorrhagic transformation of the stroke. 3. Benign essential hypertension Exam Vital Signs: Temperature 97.9 F 02/13/18 07:38 Pulse Rate 70 02/13/18 08:15 Respiratory Rate 20 02/13/18 07:38 Blood Pressure 140/76 H 02/13/18 07:38 Pulse Oximetry 93 02/13/18 07:38 Height/Weight/BMI: Height 1.63 m Weight 60.1 kg Body Mass Index 22.7 - Constitutional Present: no acute distress, well nourished, well developed, cooperative Comments: Able to speak a few words although does have slurred speech. She is awake and alert and interactive. - Routine HEENT Exam Head: Present: normocephalic Eye: Present: EOMI ENT: Present: mucous membranes moist, oropharynx clear - Routine Neck Exam Present: supple - Routine Respiratory Exam Present: CTA bilaterally. Absent: wheezes - Routine Cardiovascular Exam Present: RRR (she appears to be in a sinus mechanism at present.), S1, S2, murmur - Routine Abdominal Exam Present: soft, normoactive bowel sounds, non distended. Absent: tenderness - Routine Extremities Exam Present: normal capillary refill - Routine Skin Exam Present: dry, warm - Routine Neurological Exam Present: alert, CN II-XII intact, motor deficit (right lower extremity reduced motor function. Right upper extremity demonstrates reduced fine motor function. There is a left facial droop.). Absent: oriented X3 (uncertain degree of orientation although she is interactive.) - Routine Psychiatric Exam Present: normal affect, cooperative Results IRU - Labs Labs: Have reviewed inpatient admission data including MRI, carotid Doppler, echocardiogram and providers notes. Have reviewed current laboratory findings and chart data. IRU A/P (1) Stroke due to embolism Qualifiers: Precerebral and cerebral artery: middle cerebral artery Laterality of affected vessel: left Qualified Code(s): I63.412 - Cerebral infarction due to embolism of left middle cerebral artery Problem details: 12/02/17 Multifocal areas of acute infarct involving left cerebellum, right occipital lobe, and left frontal lobe. 02/09/18 Acute left MCA territory infarct involving the pre and postcentral gyri. No evidence of hemorrhagic transformation Current visit: No Status: Acute Patient has multiple functional deficits including right upper lower extremity weakness, right facial droop, and difficulty with speaking. She is seen by PT, OT and speech therapy and is cooperative and making progress. Balance is improved. (2) Aphasia due to acute cerebrovascular accident (CVA) Current visit: Yes Status: Acute Patient followed by speech therapy. Patient able to speak a few words. Speech is slurred however. (3) Atrial fibrillation Qualifiers: Atrial fibrillation type: permanent Qualified Code(s): I48.2 - Chronic atrial fibrillation Current visit: No Status: Chronic Patient's atrial fibrillation is likely paroxysmal although "permanent" in terms of decision not to pursue permanent conversion. Telemetry at present is reviewed and reveals presence of sinus mechanism. (4) Hypertension Qualifiers: Hypertension type: essential hypertension Qualified Code(s): I10 - Essential (primary) hypertension Current visit: No Status: Chronic Blood pressures are reviewed. Overall there adequately controlled at present. DVT Prophylaxis: Eliquis Resuscitation Status: Full Code - Course Hospital Course: J Carlos Og MD: 02/13/18 11:40 Patient sustained multiple functional deficits from her stroke. Balance is improved. Final motor movement reduced right upper extremity. Expressive dysphasia is a significant impediment from the patient's perspective as well. - Interventions to Obtain Goals PT Treatment Plan: Balance/Proprioception, Functional Activities, Gait Training , Patient/Family Education, Therapeutic Exercise OT Treatment Plan: ADL (Basic Care), Balance Training, IADL, Pt./Family Education, Ther. Exercise for ADL Goals Progress/Modifications: This medically complex patient is now back on Eliquis and tolerating it well. She is seen in a multidisciplinary fashion with PT, OT and speech therapy along with 24 rehabilitation nursing to monitor her neurologic function. She has sustained a new cardioembolic stroke at the time of admission to acute care. She denies any chest pain. She denies shortness of breath and is tolerating therapy adequately. She is known to have a severe ischemic cardiomyopathy with ejection fraction around 30%. This likely will impede her functional recovery.
--- NOTE | 2018-02-13 15:36 | Progress Note ---
- Date 02/13/18 Subjective: Deyanira is doing much better communicating and expressing herself. Family has seen an improvement in her physical ability as well. She denies chest pain or dyspnea. She hasn't been aspirating and denies n/v. Objective Vital signs: Temperature 97.9 F 02/13/18 07:38 Pulse Rate 70 02/13/18 08:15 Respiratory Rate 20 02/13/18 07:38 Blood Pressure 140/76 H 02/13/18 07:38 Pulse Oximetry 93 02/13/18 07:38 Rhythm: Atrial Fibrillation with Normal Ventricular Rate Height/Weight/BMI: Height 1.63 m Weight 60.1 kg Body Mass Index 22.7 - Constitutional Present: no acute distress, well nourished, well developed - Routine HEENT Exam Head: Present: normocephalic Eye: Absent: conjunctival icterus, scleral injection ENT: Present: mucous membranes moist - Routine Respiratory Exam Present: CTA bilaterally - Routine Cardiovascular Exam Present: murmur, irregularly irregular - Routine Abdominal Exam Present: soft, normoactive bowel sounds, non distended, non tender - Routine Extremities Exam Present: no edema, pulses intact - Routine Skin Exam Present: intact, dry, warm - Routine Neurological Exam Present: alert, oriented X3, motor deficit (mild right arm), facial asymmetry ( mild right facial droop) - Routine Psychiatric Exam Present: normal affect, cooperative Results - Labs CBC & Chem 7: 02/12/18 04:41 Assessment and Plan (1) Stroke due to embolism Problem details: 12/02/17 Multifocal areas of acute infarct involving left cerebellum, right occipital lobe, and left frontal lobe. 02/09/18 Acute left MCA territory infarct involving the pre and postcentral gyri. No evidence of hemorrhagic transformation Current visit: No Status: Acute (2) Aphasia due to acute cerebrovascular accident (CVA) Current visit: Yes Status: Acute Assessment and Plan: Assessment Stroke-recurrent Atrial fibrillation-permanent HTN HLP Hypothyroid Cardiomyopathy with EF 25-30% Systolic heart failure-chronic, compensated Pulmonary HTN Plan Tele reviewed: A-fib. Also had a 21 beat run of what appears to be a-fib with RVR. She was asymptomatic at that time. Electrolytes stable - will reassess BMP and mg in am. Continue Eliquis BP overall stable; mild-moderate elevations noted. Will continue to keep Lasix on hold - no evidence of overload. Continue metoprolol. Dr. Marroquin consulted. Echo: IMPRESSION 1. Biatrial enlargement, left greater than right. 2. No evidence of intracardiac thrombus. 3. Patient is in underlying atrial fibrillation. 4. Severe ischemic cardiomyopathy, ejection fraction of about 30-35%. 5. Mild concentric LVH. 6. Moderate aortic regurgitation. 7. Mild to moderate mitral regurgitation. 8. Mild tricuspid regurgitation. 9. Mild pulmonic insufficiency. 10. Mild pulmonary hypertension. Systolic PA pressure is estimated at 45 mmHg. DVT Prophylaxis: Eliquis Resuscitation Status: Full Code - Physician Narrative Physician: Barbara Sousa MD Narrative: Date: 02/13/18 Time: 1949 I have independently evaluated and examined this patient. I reviewed the chart, the patient's history, and the PATTERNMAKER PLASTER/PA's documented findings as above. We discussed and formulated the assessment and plan as above with additions as below: Mrs. Purvis within the family members at the bedside earlier this evening. She denied palpitations or chest pain and reported she was ready to go to bed. Quite complex tachycardia reported earlier today, rhythm strips reviewed by myself-slightly irregular tachycardia with morphology distinctly different than usual polymorphic PVCs; consistent with A. fib with aberrancy. Usual rhythm A. fib. Patient uses hand gestures primarily to communicate but occasionally uses yes no answers or nods Irregular cardiac rhythm, S1-S2 Reassess electrolytes with magnesium tomorrow, continue telemetry. Hospital Course Summary Disclaimer: The visit summary below is not to be considered part of the above Progress Note. Hospital Course: 02/11/18 Stroke; A-fib -cont Eliquis, statin. -PT/OT/ST per attending. -Consult Dr. Marroquin when he's available (02/13) HTN, Systolic CHF -Lasix on hold - no evidence of fluid overload currently -continue metoprolol -echo report pending Electrolyte abnormalities -Hypernatremia and low-normal K on labs yesterday -repeat today 02/13/18 Tele reviewed: A-fib. Also had a 21 beat run of what appears to be a-fib with RVR. She was asymptomatic at that time. Electrolytes stable - will reassess BMP and mg in am. Continue Eliquis BP overall stable; mild-moderate elevations noted. Will continue to keep Lasix on hold - no evidence of overload. Continue metoprolol. Dr. Marroquin consulted. Echo: IMPRESSION 1. Biatrial enlargement, left greater than right. 2. No evidence of intracardiac thrombus. 3. Patient is in underlying atrial fibrillation. 4. Severe ischemic cardiomyopathy, ejection fraction of about 30-35%. 5. Mild concentric LVH. 6. Moderate aortic regurgitation. 7. Mild to moderate mitral regurgitation. 8. Mild tricuspid regurgitation. 9. Mild pulmonic insufficiency. 10. Mild pulmonary hypertension. Systolic PA pressure is estimated at 45 mmHg.
[2018-02-13] MEDS: ROSUVASTATIN 10 MG TABLET PO SCH (20:50)
[2018-02-13] MEDS: MELATONIN 5 MG TABLET PO PRN (20:50)
[2018-02-14] MEDS: DIGOXIN 125 MCG TABLET PO SCH (08:33)
[2018-02-14] MEDS: FUROSEMIDE 20 MG TABLET PO SCH (08:34)
[2018-02-14] MEDS: APIXABAN 2.5 MG TABLET PO SCH ×2 (08:34→20:24)
[2018-02-14] MEDS: ASPIRIN 81 MG CHEWABLE TABLET PO SCH (08:34)
[2018-02-14] MEDS: HYDRALAZINE 25 MG TABLET PO SCH ×3 (08:34→17:30)
[2018-02-14] MEDS: COENZYME Q-10 200mg TABLET PO SCH (08:34)
--- NOTE | 2018-02-14 10:57 | Fluoroscopy Report ---
Indication:oropharyngeal dysphagia Procedure:FL barium swallow modified MODIFIED BAR. SWALLOW STUDY: Videofluoroscopy was performed in conjunction with a administrative representative from speech pathology and a separate report and recommendations will be provided. Varying gradations of barium from thin to solid were administered. Aspiration was visualized with thin consistency barium. There was a small amount of aspiration during one swallow of nectar consistency barium, as well. No aspiration was visualized with any of the remaining consistencies. AP imaging was unable to be obtained during this study. Impression: 1. Aspiration with thin and nectar consistencies. Please see the speech pathology report for additional details and recommendations. Fluoroscopy dose: 3.23 mGy (Cumulative air kerma) Silvio Draper RPA/NOEL performed this under my direct supervision. .
--- NOTE | 2018-02-14 11:28 | IRU Progress Note ---
- Subjective/Serverity of Illness Date: 02/14/18 Deyanira continues to cooperate with therapy. Continues to struggle with expressive dysphagia. She was evaluated by speech therapy with a modified barium swallow today revealing the presence of some aspiration with thin liquids. She will be advanced to nectar thick liquids and regular consistency food. Discussed with speech therapy today. She is progressing with PT and OT. She denies dyspnea although does have obvious tachypnea when she is lying in bed. Question of thrush on tongue. However she has not received any antibiotics. Uncertain if this is truly thrush or something that she has eaten. We will reassess tomorrow before making a decision in this regard. Exam Vital Signs: Temperature 98.0 F 02/14/18 08:00 Pulse Rate 69 02/14/18 10:38 Respiratory Rate 18 02/14/18 08:00 Blood Pressure 152/81 H 02/14/18 08:00 Pulse Oximetry 96 02/14/18 08:00 Height/Weight/BMI: Height 1.63 m Weight 60.1 kg Body Mass Index 22.7 - Constitutional Present: mild distress (dyspnea), well nourished, well developed, thin Comments: speech issues: dysarthria and dysphagia noted. - Routine HEENT Exam Head: Present: normocephalic Eye: Present: EOMI ENT: Present: mucous membranes moist. Absent: oropharynx clear (tongue has a few white particles present. Could be thrush but not clear if it is. Will watch. ) - Routine Neck Exam Present: supple - Routine Respiratory Exam Present: decreased breath sounds, CTA bilaterally. Absent: wheezes - Routine Cardiovascular Exam Present: S1, S2, murmur, irregularly irregular - Routine Abdominal Exam Present: soft, normoactive bowel sounds, non distended. Absent: tenderness - Routine Extremities Exam Present: no edema, normal capillary refill - Routine Skin Exam Present: dry, warm - Routine Neurological Exam Present: alert, oriented X3, motor deficit (reduced strength right upper and lower extremity.). Absent: CN II-XII intact (some right facial droop noted.), altered mental status Dysarthria present. - Routine Psychiatric Exam Present: normal affect Results IRU - Labs Labs: Have reviewed lab findings and other providers notes. IRU A/P (1) Stroke due to embolism Qualifiers: Precerebral and cerebral artery: middle cerebral artery Laterality of affected vessel: left Qualified Code(s): I63.412 - Cerebral infarction due to embolism of left middle cerebral artery Problem details: 12/02/17 Multifocal areas of acute infarct involving left cerebellum, right occipital lobe, and left frontal lobe. 02/09/18 Acute left MCA territory infarct involving the pre and postcentral gyri. No evidence of hemorrhagic transformation Current visit: No Status: Acute Neurologically she is unchanged to perhaps improved. Continues to have dysarthria. Modified barium swallow today revealed some aspiration with thin liquids. Speech therapy will advance to nectar thick liquids but regular diet. (2) Aphasia due to acute cerebrovascular accident (CVA) Current visit: Yes Status: Acute Speech working with patient re: language/cognition as well as dysphagia (3) Atrial fibrillation Qualifiers: Atrial fibrillation type: permanent Qualified Code(s): I48.2 - Chronic atrial fibrillation Current visit: No Status: Chronic Clinically he remains in atrial fibrillation. On Eliquis twice daily. (4) Hypertension Qualifiers: Hypertension type: essential hypertension Qualified Code(s): I10 - Essential (primary) hypertension Current visit: No Status: Chronic DVT Prophylaxis: Eliquis Resuscitation Status: Full Code - Course Hospital Course: J Carlos Og MD: 02/13/18 11:40 Patient sustained multiple functional deficits from her stroke. Balance is improved. Final motor movement reduced right upper extremity. Expressive dysphasia is a significant impediment from the patient's perspective as well. 02/14/18 11:30 Modified barium swallow today indicates safety for nectar thickened liquids and regular diet. Questionable thrush. Clinically dyspneic although denies that. Remains in atrial fibrillation and tolerating Eliquis adequately. - Interventions to Obtain Goals PT Treatment Plan: Balance/Proprioception, Functional Activities, Gait Training , Patient/Family Education, Therapeutic Exercise OT Treatment Plan: ADL (Basic Care), Balance Training, IADL, Pt./Family Education, Ther. Exercise for ADL Goals Progress/Modifications: Deyanira underwent a modified barium swallow today. I discussed with speech therapy the results. She is safe to swallow nectar thickened liquids and a regular diet. Her diet will therefore be advanced. She does have some white particles on her tongue of uncertain significance. Whether this is a medication or candy or perhaps thrush is not clear. She has not had any recent antibiotics and is not prone to having thrush she states. We will wait and watch at the present time since it is not bothering her. Currently her primary functional deficit is her language at this time. Speech therapy is working with her and she is making some progress. Also improving regarding PT and OT regarding right sided weakness.
[2018-02-14] MEDS: MELATONIN 5 MG TABLET PO PRN (20:23)
[2018-02-14] MEDS: ROSUVASTATIN 10 MG TABLET PO SCH (20:23)
[2018-02-15] MEDS: ASPIRIN 81 MG CHEWABLE TABLET PO SCH (08:42)
[2018-02-15] MEDS: FUROSEMIDE 20 MG TABLET PO SCH (08:42)
[2018-02-15] MEDS: COENZYME Q-10 200mg TABLET PO SCH (08:42)
[2018-02-15] MEDS: DIGOXIN 125 MCG TABLET PO SCH (08:42)
[2018-02-15] MEDS: APIXABAN 2.5 MG TABLET PO SCH ×3 (08:42→21:41)
[2018-02-15] MEDS: HYDRALAZINE 25 MG TABLET PO SCH ×3 (08:43→17:34)
--- NOTE | 2018-02-15 10:09 | IRU Progress Note ---
- Subjective/Serverity of Illness Date: 02/15/18 Deyanira remains pleasant and cooperative. Unfortunately her dysarthric speech is a primary concern for her. She is working with speech therapy both for linguistic skills as well as swallowing. Modified barium swallow was done yesterday with previous results as noted. This was discussed with the patient and her family. She is doing well in this regard and is improving. She remains in atrial fibrillation on monitor. Overall, her ventricular rate is fairly well controlled. She remains on Eliquis without known side effects and without active bleeding identified. Findings motor movement is reduced in the right upper extremity. There is some mild weakness on the right side compared to the left and her right facial droop remains. She is cooperative with OT, PT and speech therapy. She is able to ambulate over 150 feet with a front-wheeled walker. Transfers are with contact-guard assistance. Exam Vital Signs: Temperature 97.6 F 02/15/18 08:41 Pulse Rate 79 02/15/18 08:42 Respiratory Rate 16 02/15/18 08:41 Blood Pressure 136/81 02/15/18 08:41 Pulse Oximetry 97 02/15/18 08:41 Height/Weight/BMI: Height 1.63 m Weight 58.4 kg Body Mass Index 22.7 - Constitutional Present: no acute distress, well nourished, well developed, cooperative Comments: dysarthric speech noted. - Routine HEENT Exam Eye: Present: EOMI ENT: Present: mucous membranes moist. Absent: oropharynx clear (faint hint of a whitish coating to the tongue. Not as prominent as yesterday.) - Routine Neck Exam Present: supple - Routine Respiratory Exam Present: CTA bilaterally. Absent: wheezes - Routine Cardiovascular Exam Present: S1, S2, murmur, irregularly irregular - Routine Abdominal Exam Present: soft, normoactive bowel sounds, non distended. Absent: tenderness - Routine Extremities Exam Present: no edema, normal capillary refill - Routine Skin Exam Present: dry, warm - Routine Neurological Exam Present: alert, oriented X3, motor deficit (reduced strength on flexion and extension right elbow and shoulder. Reduced communications tech strength right hand. Reduced fine motor movement right upper extremity. Reduced flexion strength at right hip.). Absent: CN II-XII intact (mild right face droop) - Routine Psychiatric Exam Present: normal affect, cooperative IRU A/P (1) Stroke due to embolism Qualifiers: Precerebral and cerebral artery: middle cerebral artery Laterality of affected vessel: left Qualified Code(s): I63.412 - Cerebral infarction due to embolism of left middle cerebral artery Problem details: 12/02/17 Multifocal areas of acute infarct involving left cerebellum, right occipital lobe, and left frontal lobe. 02/09/18 Acute left MCA territory infarct involving the pre and postcentral gyri. No evidence of hemorrhagic transformation Current visit: No Status: Acute Neurologically she remained stable with no new neurologic events. Remains on Eliquis without known side effects. No active bleeding identified. Dysarthric speech and some right-sided weakness remain. (2) Aphasia due to acute cerebrovascular accident (CVA) Current visit: Yes Status: Acute (3) Atrial fibrillation Qualifiers: Atrial fibrillation type: permanent Qualified Code(s): I48.2 - Chronic atrial fibrillation Current visit: No Status: Chronic She remains in atrial fibrillation both clinically and on monitor. Ventricular rate is reasonably well controlled. (4) Hypertension Qualifiers: Hypertension type: essential hypertension Qualified Code(s): I10 - Essential (primary) hypertension Current visit: No Status: Chronic Blood pressures are variable and for the most part reasonably well controlled. Occasionally values up in the 150 range are noted. DVT Prophylaxis: Eliquis Resuscitation Status: Full Code - Course Hospital Course: J Carlos Og MD: 02/13/18 11:40 Patient sustained multiple functional deficits from her stroke. Balance is improved. Final motor movement reduced right upper extremity. Expressive dysphasia is a significant impediment from the patient's perspective as well. 02/14/18 11:30 Modified barium swallow today indicates safety for nectar thickened liquids and regular diet. Questionable thrush. Clinically dyspneic although denies that. Remains in atrial fibrillation and tolerating Eliquis adequately. 02/15/18 10:10 Tongue less whitish today. Remains in atrial fibrillation on telemetry. Denies dyspnea. Cooperative with therapy and making progress. - Interventions to Obtain Goals PT Treatment Plan: Balance/Proprioception, Functional Activities, Gait Training , Patient/Family Education, Therapeutic Exercise OT Treatment Plan: ADL (Basic Care), Balance Training, IADL, Pt./Family Education, Ther. Exercise for ADL Goals Progress/Modifications: At this time she is functionally improving. Team meeting today for further multidisciplinary input. Remains cooperative with speech therapy, occupational therapy and physical therapy. She is able to ambulate with a front-wheeled walker over 150 feet. She continues to have the whitish coating on her tongue but is less prominent. Not certain if this represents thrush. It is asymptomatic. Have decided not to treat at present. Her chest exam is clear. She remains in atrial fibrillation. She denies dyspnea but objectively appears to have some degree of tachypnea.
--- NOTE | 2018-02-15 13:45 | IRU Team Meeting ---
IRU Team Meeting - Nursing Bladder Assistive Devices Utilized:: Absorbent Pad Bladder Management Level of Assist: Independent Bladder Frequency of Accidents: No accidents Bowel Assistive Devices Utilized:: Absorbent Pad Bowel Management Level of Assist: Independent Bowel Frequency of Accidents: No accidents Vital Signs: Vital Signs - 24 hr 02/14/18 16:00 02/14/18 16:41 02/15/18 00:00 Temperature 97.4 F 97.7 F Pulse Rate 73 70 79 Respiratory Rate 16 20 Blood Pressure 131/65 154/84 H Pulse Oximetry 98 96 02/15/18 08:00 02/15/18 08:41 02/15/18 08:42 Temperature 97.6 F Pulse Rate 79 79 79 Respiratory Rate 16 Blood Pressure 136/81 Pulse Oximetry 97 02/15/18 11:51 Temperature Pulse Rate 61 Respiratory Rate Blood Pressure 130/66 Pulse Oximetry Current Medications: Acetaminophen (Tylenol) 650 mg PO Q5H PRN PRN Reason: Discomfort Apixaban (Eliquis) 2.5 mg PO BID [facility] Last Admin: 02/15/18 08:42 Dose: 2.5 mg Aspirin (Asa) 81 mg PO DAILY [facility] Last Admin: 02/15/18 08:42 Dose: 81 mg Bisacodyl (Dulcolax) 10 mg RECTALLY DAILY PRN PRN Reason: Constipation Coenzyme Q10 (Co Q-10) 200 mg PO DAILY [facility] Last Admin: 02/15/18 08:42 Dose: 200 mg Digoxin (Lanoxin) 125 mcg PO DAILY [facility] Last Admin: 02/15/18 08:42 Dose: 125 mcg Diphenhydramine HCl (Benadryl) 25 mg PO HS PRN PRN Reason: Itching Furosemide (Lasix 20 Mg Tab) 20 mg PO DAILY [facility] Last Admin: 02/15/18 08:42 Dose: 20 mg Hydralazine HCl (Apresoline) 25 mg PO TIDWM [facility] Last Admin: 02/15/18 11:51 Dose: 25 mg Magnesium Hydroxide (Mom) 30 ml PO DAILY PRN PRN Reason: Constipation Melatonin (Melatonin) 5 mg PO HS PRN Last Admin: 02/14/18 20:23 Dose: 5 mg Metoprolol Tartrate (Lopressor) 50 mg PO BIDWM [facility] Last Admin: 02/15/18 08:43 Dose: 50 mg Potassium Chloride (K-Dur 20 Meq Tablet) 20 meq PO WB [facility] Last Admin: 02/15/18 08:42 Dose: 20 meq Rosuvastatin Calcium (Crestor) 5 mg PO HS [facility] Last Admin: 02/14/18 20:23 Dose: 5 mg Current Medical Issues: Recent acute multiple CVAs, left MCA distribution; atrial fibrillation-permanent ; benign essential hypertension Comments: I certify that I personally led the interdisciplinary team meeting and agree with comments, barriers and goals indicated. Team meeting was held in the patient's room with the patient and the following family members present: patient's and two daughters Ms. Mckeon is progressing nicely. Her blood pressure is more well controlled at the present time. She remains on Eliquis without evidence of bleeding. She is cooperative. She is continent of urine and bowel. Telemetry reveals atrial fibrillation. - Dietary She is consuming a regular diet with nectar thickened liquids. She is receiving mighty shakes 3 times daily. She reports that portion sizes are too large. Efforts will be undertaken to reduce these. - Speech Therapy Patient is working with speech therapy for improvement in linguistic skills due to her dysarthria from the stroke. She is working on diaphragmatic breathing. In addition, modified barium swallow was done recently. Efforts are underway to advance her diet. Currently she is on a regular diet with nectar thickened liquids and tolerating this well. - Physical Therapy Bed, Chair, Wheelchair Transfer Assist: Minimal Assistance Ambulation Ability: Contact Guard Assistance Ambulation Distance: 160 Stair Climbing Ability: Contact Guard Assistance Number of Steps Climbed: 10 Car Transfer Ability: Contact Guard Assistance Comments: She is working with physical therapy. She is very cooperative. She is ambulating 160 feet with contact guard assistance with a FWW. - Occupational Therapy Eating Ability: Independent Grooming Ability: Independent Bathing Ability: Contact Guard Assistance Upper Body Dressing Ability: Stand By Assist/Supervision Lower Body Dressing Ability: Stand By Assist/Supervision Tub Transfer Assist: Patient Refuses Toileting Assist: Modified Independent Toilet Transfer Assist: Modified Independent Comments: She is making good progress with ADLs. She is standby assist for upper and lower body dressing, contact guard assist for bathing ability and modified independent for toileting assistance. Right upper extremity motor coordination is greatly improved with the patient having successfully signed her signature. With each attempt to sign, her name legibility is improving and is more fluid. - Goals Physical Therapy Goals: 02/15/18. 1.) Modified [place] with all transfers and ambulation. 2.) Up and down 2 steps with supervision and use of one handrail and front wheeled walker. Occupational Therapy Goals: OT goals 02/15/18: 1.) Upper body dressing with modified independence. 2.) Lower body dressing with modified independence. 3. ) Bathing with supervision. Speech Therapy Goals: Dysphagia: Usp Goal: Pt will maintain nutrition and hydration of the least restrictive diet while demonstrating no s/s of aspiration for [] consecutive. STG: Pt will complete exercises to improve strength and endurance of oral structures with minimal cues in 3/3 sessions. Pt will consume a regular diet consistency with thin liquids without outward signs of aspiration at bedside in 85% of trials. Pt will implement compensatory feeding strategies (right head turn) in 80% of meals with minimal cues to aid recall. Dysarthria Goals: FLAME PLANER GOAL: Pt will improve intelligibility of speech by utilizing breathing techniques, oral motor exercises, and compensatory strategies to express needs and wants. SHORT TERM GOALS: Pt will complete exercises to improve mobility of oral structures independently in 4/5 sessions. Pt will complete exercises to improve strength and endurance of oral structures independently in 4/5 sessions. Pt will complete diaphragmatic breathing exercises to improve phonation. Pt will identify 3/3 compensatory strategies for improving dysarthric speech ( slowing rate, over articulation of speech, increased volume) independently. Pt will complete dysarthria drills at (word, sentence, phrase, and conversational level) and utilize compensatory strategies in 3/3 opportunities. - Barriers to Discharge Barriers to Attaining Goals: Endurance (encouragement to take fewer rest breaks) , Medical Limitation (swallow training. Consistency with positioning (turning head to the right to facilitate safe swallowing).) - Care Plan Anticipated Length of Stay (days): 2 Anticipated DC Destination: Home, Self Care, Home Health Service I have led this team conference and agree with the plan. Interventions/Goals: Patient has progressed nicely and it is anticipated that she will be safe to transition to her home environment on Tuesday, February 4. She will require home health for PT, OT and continued speech therapy. She does have excellent family support.
[2018-02-15] MEDS: MELATONIN 5 MG TABLET PO PRN (19:57)
[2018-02-15] MEDS: ROSUVASTATIN 5 MG TABLET PO SCH ×2 (19:58→21:41)
[2018-02-16] MEDS: DiphenhydrAMINE 25 MG CAPSULE PO PRN (00:07)
[2018-02-16] MEDS: ASPIRIN 81 MG CHEWABLE TABLET PO SCH (08:22)
[2018-02-16] MEDS: COENZYME Q-10 200mg TABLET PO SCH (08:23)
[2018-02-16] MEDS: APIXABAN 2.5 MG TABLET PO SCH ×2 (08:23→20:51)
[2018-02-16] MEDS: DIGOXIN 125 MCG TABLET PO SCH (08:23)
[2018-02-16] MEDS: FUROSEMIDE 20 MG TABLET PO SCH (08:23)
[2018-02-16] MEDS: HYDRALAZINE 25 MG TABLET PO SCH ×3 (08:24→17:46)
--- NOTE | 2018-02-16 11:49 | Progress Note ---
- Date 02/16/18 Subjective: Deyanira continues to show good progress. 2 daughters are at bedside. She is planning on going home with home health tomorrow. They have no new concerns, and are planning to see her flight radio officer in follow-up on 02/21/18. She denies chest pain, SOA, dizziness. She hasn't had n/v and has been eating well. Her dysarthria is improving and she's able to say phrases; she effectively communicates her needs and participates in conversation. Objective Vital signs: Temperature 98.5 F 02/16/18 08:00 Pulse Rate 71 02/16/18 08:23 Respiratory Rate 14 02/16/18 08:00 Blood Pressure 136/62 02/16/18 08:00 Pulse Oximetry 96 02/16/18 08:00 Rhythm: Atrial Fibrillation with Normal Ventricular Rate Height/Weight/BMI: Height 1.63 m Weight 58.4 kg Body Mass Index 22.7 - Constitutional Present: no acute distress, well nourished, well developed - Routine HEENT Exam Head: Present: normocephalic Eye: Present: PERRL. Absent: conjunctival icterus, scleral injection - Routine Respiratory Exam Present: CTA bilaterally - Routine Cardiovascular Exam Present: murmur, irregularly irregular - Routine Abdominal Exam Present: soft, normoactive bowel sounds, non distended, non tender - Routine Extremities Exam Present: no edema, pulses intact - Routine Skin Exam Present: intact, dry, warm - Routine Neurological Exam Present: alert, oriented X3, motor deficit (minimal on right arm), facial asymmetry (subtle right facial droop). Absent: normal speech (dysarthria improving) Results - Labs CBC & Chem 7: 02/14/18 04:22 Assessment and Plan (1) Stroke due to embolism Problem details: 12/02/17 Multifocal areas of acute infarct involving left cerebellum, right occipital lobe, and left frontal lobe. 02/09/18 Acute left MCA territory infarct involving the pre and postcentral gyri. No evidence of hemorrhagic transformation Current visit: No Status: Acute (2) Aphasia due to acute cerebrovascular accident (CVA) Current visit: Yes Status: Acute Assessment and Plan: Assessment Stroke-recurrent Atrial fibrillation-permanent HTN HLP Hypothyroid Cardiomyopathy with EF 25-30% Systolic heart failure-chronic, compensated Pulmonary HTN Plan BMP was checked yesterday: Sodium 145, potassium 3.7, BUN of 24, creatinine 0.7. She will be going home with home health tomorrow. She has a follow-up with her flight radio officer on February 21. Recommend for BMP and dig level to be checked in 1 week. New medications include (Reviewed with patient and family): Eliquis 2.5 mg BID ASA 81 mg daily Digoxin 125 g daily Hydralazine 25 mg TID Metoprolol 50 mg BID Crestor 10 mg HS Benadryl 25 mg HS PRN Melatonin 5 mg HS PRN Echo: IMPRESSION 1. Biatrial enlargement, left greater than right. 2. No evidence of intracardiac thrombus. 3. Patient is in underlying atrial fibrillation. 4. Severe ischemic cardiomyopathy, ejection fraction of about 30-35%. 5. Mild concentric LVH. 6. Moderate aortic regurgitation. 7. Mild to moderate mitral regurgitation. 8. Mild tricuspid regurgitation. 9. Mild pulmonic insufficiency. 10. Mild pulmonary hypertension. Systolic PA pressure is estimated at 45 mmHg. DVT Prophylaxis: Eliquis Resuscitation Status: Full Code - Physician Narrative Physician: Sofia Carrera MD Narrative: Date: 02/16/18 Time: 1904 Ms. Mckeon was independently interviewed and examined by me. She and her are sitting in the room. Her verbal communication is getting so much better than it was in the beginning. She is hoping to be able to go home soon. She denies any complaints to me at this time. She has not had a bowel movement in a while and they are working on that. PE: Gen: alert and oriented. Skin: warm and dry HEENT: NC/AT PERRL, EOMI, Sclera, lids and conjunctiva wnl. Dry MM, OP clear Neck: supple, No JVD, Carotids 2+ without bruits Lungs: clear, No rales, rhonchi or wheezes CV: Irregular, slightly tachy. Tele Afib 90-110, soft 2/6 systolic murmur on the left sternal border Abd: soft, NT/ND, +BS. MS: ANTONIO, minimal weakness on the right side ext compared to the left. No edema Neuro: slight right facial droop. Psy: appropriate mood and affect. Assessment: Stroke-recurrent Atrial fibrillation-permanent HTN HLP Hypothyroid Cardiomyopathy with EF 25-30% Systolic heart failure-chronic, compensated Pulmonary HTN Plan: BMP was checked yesterday: Sodium 145, potassium 3.7, BUN of 24, creatinine 0.7. She will be going home with home health tomorrow. She has a follow-up with her flight radio officer on February 21. Recommend for BMP and dig level to be checked in 1 week. I have reviewed her labs, notes and imaging. She is doing quite well. I discussed the patient with the METAL GRADER and I agree with the assessment and plan as noted above. Hospital Course Summary Disclaimer: The visit summary below is not to be considered part of the above Progress Note. Hospital Course: 02/11/18 Stroke; A-fib -cont Eliquis, statin. -PT/OT/ST per attending. -Consult Dr. Marroquin when he's available (02/13) HTN, Systolic CHF -Lasix on hold - no evidence of fluid overload currently -continue metoprolol -echo report pending Electrolyte abnormalities -Hypernatremia and low-normal K on labs yesterday -repeat today 02/13/18 Tele reviewed: A-fib. Also had a 21 beat run of what appears to be a-fib with RVR. She was asymptomatic at that time. Electrolytes stable - will reassess BMP and mg in am. Continue Eliquis BP overall stable; mild-moderate elevations noted. Will continue to keep Lasix on hold - no evidence of overload. Continue metoprolol. Dr. Marroquin consulted. Echo: IMPRESSION 1. Biatrial enlargement, left greater than right. 2. No evidence of intracardiac thrombus. 3. Patient is in underlying atrial fibrillation. 4. Severe ischemic cardiomyopathy, ejection fraction of about 30-35%. 5. Mild concentric LVH. 6. Moderate aortic regurgitation. 7. Mild to moderate mitral regurgitation. 8. Mild tricuspid regurgitation. 9. Mild pulmonic insufficiency. 10. Mild pulmonary hypertension. Systolic PA pressure is estimated at 45 mmHg. 02/16/18 BMP was checked yesterday: Sodium 145, potassium 3.7, BUN of 24, creatinine 0.7. She will be going home with home health tomorrow. She has a follow-up with her flight radio officer on February 21. Recommend for BMP and dig level to be checked in 1 week. New medications include: Eliquis 2.5 mg BID ASA 81 mg daily Digoxin 125 g daily Hydralazine 25 mg TID Metoprolol 50 mg BID Crestor 10 mg HS Benadryl 25 mg HS PRN Melatonin 5 mg HS PRN
[2018-02-16 20:22] VITALS: O2SAT 99
[2018-02-16] MEDS: MELATONIN 5 MG TABLET PO PRN (20:52)
[2018-02-16] MEDS: ROSUVASTATIN 5 MG TABLET PO SCH (20:52)
[2018-02-17] MEDS: DiphenhydrAMINE 25 MG CAPSULE PO PRN (00:22)
[2018-02-17 07:45] VITALS: BP 148/69; RESP 16; TEMP 97.4
[2018-02-17] MEDS: ASPIRIN 81 MG CHEWABLE TABLET PO SCH (08:39)
[2018-02-17] MEDS: COENZYME Q-10 200mg TABLET PO SCH (08:39)
[2018-02-17] MEDS: DIGOXIN 125 MCG TABLET PO SCH (08:39)
[2018-02-17] MEDS: APIXABAN 2.5 MG TABLET PO SCH (08:39)
[2018-02-17] MEDS: HYDRALAZINE 25 MG TABLET PO SCH ×2 (08:40→12:08)
[2018-02-17] MEDS: FUROSEMIDE 20 MG TABLET PO SCH (08:40)
[2018-02-17 08:41] VITALS: PULSE 61
--- NOTE | 2018-02-17 11:32 | IRU Progress Note ---
- Subjective/Serverity of Illness Date: 02/17/18 Deyanira states that she is anxious to go home and would like to get there. Right leg did give out of bed yesterday. I discussed with therapy. That was at the end of a one-hour session. At home she will not be exercising that long. The patient does not think it was a big deal. Daughter thinks it was the hip more than the knee. She did not fall. According to therapy, they believe that she is safe for transition to home. She has excellent family support and I think it would be fine for her to return home with home health. She continues to have dysarthria. Her swallowing is improved. She will continue to require home health PT and OT and speech therapy. Exam Vital Signs: Temperature 97.4 F 02/17/18 07:44 Pulse Rate 61 02/17/18 08:39 Respiratory Rate 16 02/17/18 07:44 Blood Pressure 148/69 H 02/17/18 07:44 Pulse Oximetry 99 02/17/18 07:44 Height/Weight/BMI: Height 1.63 m Weight 58.4 kg Body Mass Index 22.7 - Constitutional Present: no acute distress, well nourished, well developed, cooperative - Routine HEENT Exam Head: Present: normocephalic Eye: Present: EOMI ENT: Present: mucous membranes moist, oropharynx clear - Routine Respiratory Exam Present: CTA bilaterally. Absent: wheezes - Routine Cardiovascular Exam Present: S1, S2, murmur, irregularly irregular - Routine Abdominal Exam Present: soft, normoactive bowel sounds, non distended. Absent: tenderness - Routine Extremities Exam Present: no edema, normal capillary refill - Routine Skin Exam Present: dry, warm - Routine Neurological Exam Present: alert, oriented X3, motor deficit (mild right-sided weakness in arm and leg.), facial asymmetry. Absent: CN II-XII intact (right facial droop), normal speech (dysarthria although improved.) - Routine Psychiatric Exam Present: normal affect Results IRU - Labs Labs: Have reviewed other providers notes and laboratory data. IRU A/P (1) Stroke due to embolism Qualifiers: Precerebral and cerebral artery: middle cerebral artery Laterality of affected vessel: left Qualified Code(s): I63.412 - Cerebral infarction due to embolism of left middle cerebral artery Problem details: 12/02/17 Multifocal areas of acute infarct involving left cerebellum, right occipital lobe, and left frontal lobe. 02/09/18 Acute left MCA territory infarct involving the pre and postcentral gyri. No evidence of hemorrhagic transformation Current visit: No Status: Acute Patient seems to be stable from a neurologic standpoint. Continues to have some right-sided weakness but most significantly has the dysarthria which is frustrating for her. (2) Aphasia due to acute cerebrovascular accident (CVA) Current visit: Yes Status: Acute (3) Atrial fibrillation Qualifiers: Atrial fibrillation type: permanent Qualified Code(s): I48.2 - Chronic atrial fibrillation Current visit: No Status: Chronic (4) Hypertension Qualifiers: Hypertension type: essential hypertension Qualified Code(s): I10 - Essential (primary) hypertension Current visit: No Status: Chronic DVT Prophylaxis: Eliquis Resuscitation Status: Full Code - Course Hospital Course: J Carlos Og MD: 02/13/18 11:40 Patient sustained multiple functional deficits from her stroke. Balance is improved. Final motor movement reduced right upper extremity. Expressive dysphasia is a significant impediment from the patient's perspective as well. 02/14/18 11:30 Modified barium swallow today indicates safety for nectar thickened liquids and regular diet. Questionable thrush. Clinically dyspneic although denies that. Remains in atrial fibrillation and tolerating Eliquis adequately. 02/15/18 10:10 Tongue less whitish today. Remains in atrial fibrillation on telemetry. Denies dyspnea. Cooperative with therapy and making progress. 02/17/18 11:31 Anticipates a transition to her home today. Hospitalists recommend follow-up BMP and adjust level in about a week. I will send a copy of reports to Dr. Syed. - Interventions to Obtain Goals PT Treatment Plan: Balance/Proprioception, Functional Activities, Gait Training , Patient/Family Education, Therapeutic Exercise OT Treatment Plan: ADL (Basic Care), Balance Training, IADL, Pt./Family Education, Ther. Exercise for ADL Goals Progress/Modifications: Anticipate safe transition to her home today.
--- NOTE | 2018-02-17 15:22 | Discharge Summary ---
Discharge Information Date of admission: 02/10/18 14:04 Anticipated date of discharge: 02/17/18 Attending Physician: Obdulio Lyles MD Primary care physician: Irene Sung MD Consults: 02/10/18 14:50 [Physician Consult] [CONS] Routine Consulting Provider: Barbi Marroquin Reason For Exam: Acute CVA - thrombolytics given in ED Ordering Provider has Notified [employer] Vent[employer]ator: Yes IRU Screening [Inpatient Rehab Screening] [CONS] Routine 02/10/18 23:31 Physician Consult [CONS] Routine Consulting Provider: Eugene Anne Reason For Exam: AFIB, CVA Ordering Provider has Notified [employer]: No - Discharge Diagnosis (1) Stroke due to embolism Status: Acute (2) Aphasia due to acute cerebrovascular accident (CVA) Status: Acute (3) Atrial fibrillation Status: Chronic (4) Hypertension Status: Chronic 1. Acute left hemispheric embolic CVA resulting in right upper and lower extremity weakness, dysarthria, dysphagia and expressive aphasia 2. Atrial fibrillation, permanent 3. Congestive cardiomyopathy with ejection fraction 30% 4. Benign essential hypertension - Laboratory Labs: 02/14/18 04:22 History of Present Illness HPI: Ms. Mckeon developed sudden inability to speak along with some right-sided weakness. She presented to the emergency department and was admitted to acute care on 02/08/2018. The patient was given TPA in the emergency department with improvement in her signs and symptoms. MRI subsequently demonstrated left middle cerebral artery acute infarction without hemorrhagic transformation. Patient did develop multiple functional deficits including right upper and lower extremity weakness along with predominantly difficulty swallowing/ dysphagia as well as severe dysarthria and dysphagia. She was awake and alert. The patient had been off of her Eliquis for a time because of her concern about side effects. Carotid Dopplers done on acute care were unremarkable. She has a history of cardiomyopathy with ejection fraction around 30%. She was stabilized while on acute care and transferred to acute inpatient rehabilitation on 02/10/2018. Hospital Course This is a general summary of the patient's hospital course. For more details refer to the complete medical record. While on acute inpatient rehabilitation she was followed by Dr. Lyles, [employer] P[employer]it[employer] Operator, as well as the hospitalist service. Her blood pressures were somewhat variable, being up into the 150 range at the time of admission. Subsequently they came down into the 120 - 130 range for the most part. Her initial potassium was 3.2. By the time of dismissal her potassium was normal at 3.7. On telemetry she remained in atrial fibrillation. She tolerated the Eliquis 2.5 mg twice daily plus aspirin 81 mg daily adequately. The following levels of functional competence are to be considered preliminary information. The reader is encouraged to refer to actual therapy notes and reports for specific details. She was seen by physical therapy and cooperated nicely with therapy. She did improve. By the time of dismissal she was able to perform transfers with simply standby assistance. She was able to ambulate with a front-wheeled walker with contact-guard assistance and 166 feet. She was also seen by occupational therapy and improved during the time of her stay. At the conclusion of therapy she was able to perform upper and lower body dressing at modified independent level. She was able to do toilet transfers at modified independent level as well. She worked diligently with speech therapy. Efforts were made at improving her swallowing ability as well as her linguistic skills. She continued to demonstrate dysarthria but was improving. Her swallowing ability improved. A modified barium swallow was performed with speech therapy present. Her diet was advanced. By the time of dismissal she was able to swallow regular thin liquids and regular consistency food. She will continue to require outpatient/home health speech therapy after dismissal. This patient has excellent family support. She was felt to be stable for transfer back to her home environment with physical therapy and occupational therapy as well as speech therapy follow-up in the home health setting. She was dismissed to her home on 02/17/2018. She remains on Eliquis 2.5 mg twice daily plus aspirin 81 mg daily plus her other medications as listed. Follow-up will be with Dr. Sung. Hospital course: 02/11/18 Stroke; A-fib -cont Eliquis, statin. -PT/OT/ST per attending. -Consult Dr. Marroquin when he's available (02/13) HTN, Systolic CHF -Lasix on hold - no evidence of fluid overload currently -continue metoprolol -echo report pending Electrolyte abnormalities -Hypernatremia and low-normal K on labs yesterday -repeat today 02/13/18 Tele reviewed: A-fib. Also had a 21 beat run of what appears to be a-fib with RVR. She was asymptomatic at that time. Electrolytes stable - will reassess BMP and mg in am. Continue Eliquis BP overall stable; mild-moderate elevations noted. Will continue to keep Lasix on hold - no evidence of overload. Continue metoprolol. Dr. Marroquin consulted. Echo: IMPRESSION 1. Biatrial enlargement, left greater than right. 2. No evidence of intracardiac thrombus. 3. Patient is in underlying atrial fibrillation. 4. Severe ischemic cardiomyopathy, ejection fraction of about 30-35%. 5. Mild concentric LVH. 6. Moderate aortic regurgitation. 7. Mild to moderate mitral regurgitation. 8. Mild tricuspid regurgitation. 9. Mild pulmonic insufficiency. 10. Mild pulmonary hypertension. Systolic PA pressure is estimated at 45 mmHg. 02/16/18 BMP was checked yesterday: Sodium 145, potassium 3.7, BUN of 24, creatinine 0.7. She will be going home with home health tomorrow. 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 Recommend for BMP and dig level to be checked in 1 week. New medications include: Eliquis 2.5 mg BID ASA 81 mg daily Digoxin 125 g daily Hydralazine 25 mg TID Metoprolol 50 mg BID Crestor 10 mg HS Benadryl 25 mg HS PRN Melatonin 5 mg HS PRN Time spent with patient: greater than 35 minutes Resuscitation Status: Full Code Discharge Plan - Med Rec/Dispo Referrals/Follow Up: Irene Sung MD [Primary Care Provider] - (Dr. Dian Sung on 02/28/18 at 2:00 pm for Hosp. follow-up. [address] [place] [address]) [place] Instructions: A-fib (Atrial Fibrillation) (GEN), Fall Prevention for Older Adults (GEN), Ischemic Stroke (GEN) Prescriptions: New DiphenhydrAMINE [Benadryl] 25 mg PO HS PRN cap PRN Reason: Itching Melatonin 5 mg PO HS PRN #30 tab PRN Reason: Sleep Apixaban [Eliquis] 2.5 mg PO BID #60 tab Continue Acetaminophen [Tylenol] 650 mg PO Q5H PRN tab PRN Reason: Discomfort Coenzyme Q-10 [Co Q-10] 200 mg PO DAILY tab Furosemide [Lasix 20 mg Tab] 20 mg PO DAILY tab Milk of Magnesia [Mom] 30 ml PO DAILY PRN udc PRN Reason: Constipation Potassium Chloride [K-DUR 20 mEq Tablet] 20 meq PO WB tab Digoxin [Lanoxin] 125 mcg PO DAILY #30 tab Hydralazine [Apresoline] 25 mg PO TIDWM #90 tab Metoprolol Tartrate [Lopressor] 50 mg PO BIDWM #60 tab Rosuvastatin [Crestor] 10 mg PO HS #30 tab Discontinued Aspirin [ASA] 325 mg PO DAILY tab Bisacodyl Supp [Dulcolax] 10 mg RECTALLY DAILY PRN suppositor PRN Reason: Constipation Discharge Instructions/Outpatient Orders: BMP - Basic Metabolic - [facility] Time Frame: 1 Week, Location: None Selected Digoxin - [facility] Time Frame: 1 Week, Location: None Selected - Disposition 01 Discharged Home, Self-Care - Dismissal Complete Discharge Instructions are:: Complete
--- NOTE | 2018-02-17 15:27 | Letter to Referring Physician ---
Dear Dr. Sung, This is a brief note to bring you up-to-date on the status of Deyanira Mckeon and her stay on the acute inpatient rehabilitation unit at [facility]. As you are likely aware, this patient was admitted to the acute care hospital on 02/08/18 for acute left hemisphere CVA. Initially she presented with inability to speak and some right-sided weakness. She was given TPA in the emerged department with benefit. Subsequent MRI demonstrated evidence of acute left cerebral infarction likely secondary to embolic phenomena from her atrial fibrillation. The patient was stabilized while on the acute level and admitted to inpatient rehabilitation unit at [facility] on February 10, 2018. While on inpatient rehabilitation, this patient was seen by occupational therapy , physical therapy and speech therapy and improved overall in her functional ability. We also monitored and managed the patient's BP, atrial fib and CHF while on Acute Rehab. Please see a copy of the history and physical examination as well as discharge summary faxed separately for further details. We do recommend that the patient obtain a BMP and digoxin level in about one week after dismissal. She is going home on Eliquis 2.5 mg twice daily plus aspirin 81 mg daily as well as her other meds as noted. Thank you for allowing us to be involved in this nice patient's care. Please contact me directly should you have any questions regarding their stay on the inpatient rehabilitation unit. Sincerely, Obdulio Lyles M.D.
== END 2018-02-17 13:50 | disposition home health service (06) | DRG 57 ==
PROVIDERS: ADMIT Family Medicine; ATTEND Internal Medicine